=== PATIENT | male | born 1935 | race Caucasian/White ===

== ENCOUNTER → 2018-02-13 11:28 | Outpatient (CLI) | payer MEDICARE, OTHER, SELFPAY ==
[2018-02-13 12:56] LABS: Blood Urea Nitrogen 54 mg/dL (9-20); Calcium 9.4 mg/dL (8.4-10.2); Carbon Dioxide 25 mmol/L (22-32); Chloride 99 mmol/L (98-107); Estimated Glomerular Filt Rate 22.9 mL/min (>60); Glucose 91 mg/dL (80-110); HEMOLYSIS < 15 (0-50); Sodium 139 mmol/L (137-145)
[2018-02-13 12:58] LABS: Potassium 5.4 mmol/L (3.4-5.1)
== END ==
PROVIDERS: PCP Internal Medicine; Visit Provider Internal Medicine
DX: R60.0 Localized edema (principal)
CPT/HCPCS: 36415; 80048

== ENCOUNTER 2018-03-07 09:45 | Outpatient (RCR) | payer MEDICARE, OTHER, SELFPAY ==
--- NOTE | 2018-01-29 15:37 | PT.OIE ---
Current Diagnoses Parkinson's disease (01/28/18) Past Medical History (Last Updated 01/28/18 @ 15:34 by Alysia Villarreal, PT) Back pain (Acute) Concussion (Acute) HBP (high blood pressure) (Acute) Neck pain (Acute) Parkinsons (Acute) TIA (transient ischemic attack) (Acute) Past Surgical History History of tonsillectomy Status post appendectomy Status post cholecystectomy Provider Visit Care Team Role Provider Type Jessica Celestin MD Family Provider Physician Primary Care Provider Specialty: Internal Medicine Address: [address] [place] [address], [id number] Email: Eliud Shanks MD Attending Provider Physician Specialty: Neurology Address: [address] [place] [address], [id number] Email: [email or web address] Physical Therapy Initial Evaluation PT-OP-A Visit Information Start: 01/28/18 12:49 Freq: Status: Active Protocol: Document 01/28/18 12:53 LRN (Rec: 01/28/18 13:41 LRN [id number]) Out-Patient Physical Therapy Visit Information Visit Information Visit Note 09/26 Visit Start Time 12:50 Visit Number 1 Number of AEMT Visits 0 PT-OP-B Current Condition Start: 01/28/18 12:49 Freq: Status: Active Protocol: Document 01/28/18 12:53 LRN (Rec: 01/28/18 16:30 LRN [id number]) Current Condition History of Current Condition Onset Date 2012 Current Complaints Decreased in balance with stair ambulation and sit to stand. 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 He denies any recent loss of balance episodes. His most recent was 1 month ago when he was coming to stand and his foot caught on something. Prior Treatments and Tests Pt has had cardiac rehab in 2004 x 2, pulmonary rehab - 2013. He attends independent exercise in the pulmonary clinic every Sunday and Sunday for 40' of exercise. Treatment Goals Patient/Caregiver Goals Pt goal is to improve his balance so that he doesn't have to worry about loss of balance with stair ambulation and when coming to stand from a sitting position. Prior Functional Status Baseline Function- ADL's Independent Baseline Function- Mobility Independent Baseline Function- Gait Slow gait with short step lengths, without an assisted device. Current Functional Impairments (Reported) Functional Limitations- ADL's Difficulty with sit to stand, occasional loss of balance. Difficulty with donning socks, requests information on a sock aid. Functional Limitations- Mobility/Gait Unsteady with stair ambulation , requires use of railing for safety and several trips up/ down if needing to carry more than one item. Personal Factors Other Personal Factors That May Effect Pt lives in a 2 story house Therapy/Recovery that requires him to use railing for safety; therefore pt is dependent on railing with use of stairs. Pt diagnosis of Parkinson's and intermittent back and neck pain. Uncontrolled blood pressure, currently too low. PT-OP-C Subjective Start: 01/28/18 12:49 Freq: Status: Active Protocol: Document 01/28/18 12:53 LRN (Rec: 01/28/18 16:30 LRN [id number]) Patient Questionnaires ABC- Activity Specific Balance Confidence Scale ABC Score Questionable scoring on question # 1 & 8. PT-OP-D Balance Start: 01/28/18 12:49 Freq: Status: Active Protocol: Document 01/28/18 12:53 LRN (Rec: 01/28/18 16:30 LRN [id number]) OP-PT Balance Assessment Sitting Balance Static Sitting Balance Ability Normal Standing Balance Static Standing Balance Ability Normal Dynamic Standing Balance Ability Fair Device Used None Standing Balance Comments Poor SLS. Tinetti Balance Assessment Sitting Balance Sitting Balance Steady, safe Arising from Chair Ability to Arise Able, w/o using arms Standing Balance Immediate Standing Balance Steady w/o support Turning Step Pattern Turning 360 Degrees Continuous steps Stability Turning 360 Degrees Steady Sitting Down Sitting Down Safe, steady Gait and Step Right Foot Step Length Does not pass stance ft. Right Foot Step Height Completely clears floor Left Foot Step Length Does not pass stance foot Left Foot Step Height Completely clears floor Step Description Step Symmetry Step length appears equal Step Continuity Steps appear continuous Gait Description Path Description Straight Trunk Description No sway but posturing Walking Stance Heels apart Scoring and Interpretation Tinetti Composite Score (points) 16 Interpretation of Scores High risk for falls(< 19) Tinetti Impairment Rating from Composite 40 to <60% Impaired (Score 12- Score 16) Grajeda Fall Scale Copyright Permission Taras JM, Taras RM, Michael SJ. Development of a scale to identify the fall- prone patient. Can J Aging 1989;8;366-7. Ángel Grajeda (2009). Preventing patient falls. (2nd ed). [place]: Escobar. PT-OP-E Functional Tests Start: 01/28/18 12:49 Freq: Status: Active Protocol: Document 01/28/18 12:53 LRN (Rec: 01/28/18 16:30 LRN [id number]) Functional Tests Five Times Sit to Stand Test Score 25 sec's Comments Web chair PT-OP-G Mobility & Gait Start: 01/28/18 12:49 Freq: Status: Active Protocol: Document 01/28/18 12:53 LRN (Rec: 01/28/18 16:30 LRN [id number]) OP Mobility Evaluation Bed Mobility Supine to and from Sit Transfers long sit to supine. Supine to long sit to sitting at edge. Transfers Sit to Stand Occasionally requires 2 attempts. PT-OP-H Neuro Start: 01/28/18 12:49 Freq: Status: Active Protocol: Document 01/28/18 12:53 LRN (Rec: 01/28/18 16:30 LRN [id number]) Sensation Evaluation Location Details Right Foot Light Touch Impaired Sharp/Dull Impaired Deep Pressure Intact/Normal Left Foot Light Touch Impaired Sharp/Dull Impaired Deep Pressure Intact/Normal PT-OP-J Posture/Palpation/Skin Start: 01/28/18 12:49 Freq: Status: Active Protocol: Document 01/28/18 12:53 LRN (Rec: 01/28/18 16:30 LRN [id number]) Posture Evaluation Position Standing Evaluation View Anterior Head/C-Spine Posture Forward Head T-Spine Posture Increased Kyphosis L-Spine Posture Flattened Shoulder Posture (L) Rounded (R) Rounded (R) Elevated Pelvis Posture Posterior Tilted Ankle/Foot Posture (L) Forefoot Abducted PT-OP-M Strength Start: 01/28/18 12:49 Freq: Status: Active Protocol: Document 01/28/18 12:53 LRN (Rec: 01/28/18 16:30 LRN [id number]) Hip Strength Hip Manual Muscle Testing Right Flexion (L2) 3+ Fair+ Extension (S1) 3+ Fair+ Abduction 3+ Fair+ Left Flexion (L2) 3+ Fair+ Extension (S1) 3+ Fair+ Abduction 3+ Fair+ Knee Strength Knee Manual Muscle Testing Right Flexion (S2) 3+ Fair+ Extension (L3) 4 Good Left Flexion (S2) 3+ Fair+ Extension (L3) 4 Good Ankle/Foot Strength Ankle and Foot Manual Muscle Testing Right Dorsiflexion (L4) 4 Good Plantarflexion (S1) 4 Good Inversion 4 Good Eversion (S1) 3+ Fair+ Left Dorsiflexion (L4) 4 Good Plantarflexion (S1) 4 Good Inversion 4 Good PT-OP-T Assessment and Plan Start: 01/28/18 12:49 Freq: Status: Active Protocol: Document 01/28/18 12:53 LRN (Rec: 01/28/18 16:30 LRN [id number]) Physical Therapy Assessment Rehab Potential Rehabilitation Potential Good Evaluation Complexity Number of Personal Factors/Comorbidities 3 or More Number of Body Systems Impaired 4 or More Clinical Presentation at Evaluation Evolving Impairments Impairments Balance Gait Posture ROM Strength Transfers Other Impairments Lacks appropriate home program . Goals Three Impairment Decreased safety with gait ( steps), with decr trunk & hip mobility/strength Senior Living Goal (LTG) Pt will be able to ambulate stairs without LOB and use of one railing as he improves in trunk/ankle mobility and strength. LTG Duration 8 weeks. Two Impairment Decreased balance with poor posturing Community Coordinator Goal (LTG) Pt will demonstrate improved posturing with no LOB with immediate sit to stand. LTG Duration 8 weeks One Impairment Lacks appropriate Home Exercise Program (HEP) Senior Living Goal (LTG) Pt will be independent with a HEP/Self care program LTG Duration 8 weeks Assessment Summary Assessment Pt presents with signs and symptoms consistent with his diagnosis of Parkinson's. He demonstrates decreased balance due to poor posturing, decreased trunk and ankle mobility, decreased general LE strength with decreased SLS, poor transfer technique and is hindered due to decreased sensation in the plantar surface of his feet. Physical Therapy Plan Frequency and Duration Frequency of Treatment 2x/Week Duration of Treatment 8 weeks Plan of Care Start Date 01/28/18 Plan of Care End Date 03/25/18 Therapeutic Interventions Therapeutic Interventions Balance Training Coordination Training Gait Training Home Exercise Program Manual Therapy Neuromuscular Re-education Self-Care/Home Management Therapeutic Activities Therapeutic Exercises Next Visit Focus/Plan Next Visit Plan Recheck ABC Questionnaire, HEP of stretch program, LSVT type movement ex's, Check Functional Reach, FGA, and start deep breathing/LE roll in/out ex's. Provider Signature Date
--- NOTE | 2018-01-29 15:41 | PT.OPPOC ---
Current Diagnoses Parkinson's disease (01/28/18) Provider Visit Care Team Role Provider Type Jessica Celestin MD Family Provider Physician Primary Care Provider Specialty: Internal Medicine Address: [address] [place] [address], [address] Email: Eliud Shanks MD Attending Provider Physician Specialty: Neurology Address: [address] [place] [address], [id number] Email: [email or web address] Plan Of Care PT-OP-T Assessment and Plan Start: 01/28/18 12:49 Freq: Status: Active Protocol: Document 01/28/18 12:53 LRN (Rec: 01/28/18 16:30 LRN [id number]) Physical Therapy Assessment Rehab Potential Rehabilitation Potential Good Evaluation Complexity Number of Personal Factors/Comorbidities 3 or More Number of Body Systems Impaired 4 or More Clinical Presentation at Evaluation Evolving Impairments Impairments Balance Gait Posture ROM Strength Transfers Other Impairments Lacks appropriate home program . Goals Three Impairment Decreased safety with gait ( steps), with decr trunk & hip mobility/strength Boom Worker Goal (LTG) Pt will be able to ambulate stairs without LOB and use of one railing as he improves in trunk/ankle mobility and strength. LTG Duration 8 weeks. Two Impairment Decreased balance with poor posturing Boom Worker Goal (LTG) Pt will demonstrate improved posturing with no LOB with immediate sit to stand. LTG Duration 8 weeks One Impairment Lacks appropriate Home Exercise Program (HEP) Boom Worker Goal (LTG) Pt will be independent with a HEP/Self care program LTG Duration 8 weeks Assessment Summary Assessment Pt presents with signs and symptoms consistent with his diagnosis of Parkinson's. He demonstrates decreased balance due to poor posturing, decreased trunk and ankle mobility, decreased general LE strength with decreased SLS, poor transfer technique and is hindered due to decreased sensation in the plantar surface of his feet. Physical Therapy Plan Frequency and Duration Frequency of Treatment 2x/Week Duration of Treatment 8 weeks Plan of Care Start Date 01/28/18 Plan of Care End Date 03/25/18 Therapeutic Interventions Therapeutic Interventions Balance Training Coordination Training Gait Training Home Exercise Program Manual Therapy Neuromuscular Re-education Self-Care/Home Management Therapeutic Activities Therapeutic Exercises Next Visit Focus/Plan Next Visit Plan Recheck ABC Questionnaire, HEP of stretch program, LSVT type movement ex's, Check Functional Reach, FGA, and start deep breathing/LE roll in/out ex's. Plan of Care Dates Plan of Care Start Date 01/28/18 Plan of Care End Date 03/25/18 Please Sign and Return: I have reviewed this Plan of Care and certify that the skilled therapy services above are required to meet the patient???s needs. Physician Signature Date Printed Name and Credentials
--- NOTE | 2018-02-01 14:19 | PT.OTN ---
Current Diagnoses Parkinson's disease (02/01/18) Physical Therapy Treatment Note PT-OP-A Visit Information Start: 01/28/18 12:49 Freq: Status: Active Protocol: Document 02/01/18 12:53 LRN (Rec: 02/01/18 14:06 LRN [id number]) Out-Patient Physical Therapy Visit Information Visit Information Visit Type Treatment Note Visit Note 10/27 Visit Start Time 12:50 Visit Stop Time 13:33 Total Visit Minutes 43 Visit Number 2 Number of SALES REPRESENTATIVE CONSULTANT Visits 0 Evaluation Information Evaluation Date 01/28/18 PT-OP-B Current Condition Start: 01/28/18 12:49 Freq: Status: Active Protocol: Document 01/28/18 12:53 LRN (Rec: 01/28/18 16:30 LRN [id number]) Current Condition History of Current Condition Onset Date 2012 Current Complaints Decreased in balance with stair ambulation and sit to stand. 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 He dienies any recent loss of balance episodes. His most recent was 1 month ago when he was coming to stand and his foot caught on something. Prior Treatments and Tests Pt has had cardiac rehab in 2004 x 2, pulmonary rehab - 2012. He attends independent exercise in the pulmonary clinic every sunday and sunday for 40' of exercise. Treatment Goals Patient/Caregiver Goals Pt goal is to improve his balance so that he doesn't have to worry about loss of balance with stair ambulation and when coming to stand from a sitting positioni. Prior Functional Status Baseline Function- ADL's Independent Baseline Function- Mobility Independent Baseline Function- Gait Slow gait with short step lengths, without an assistive device. Current Functional Impairments (Reported) Functional Limitations- ADL's Diffculty with sit to stand, occasional loss of balance. Difficulty with donning socks, requests information on a sock aid. Functional Limitations- Mobility/Gait Unsteady with stair ambulation , requires use of railing for safety and several trips up/ down if needing to carry more than one item. Personal Factors Other Personal Factors That May Effect Pt lives in a 2 story house Therapy/Recovery that requires him to use railing for safety; therefore pt is dependent on railing with use of stairs. Pt diagnosis of Parkinson's and intermittent back and neck pain. Uncontrolled blood pressure, currently too low. PT-OP-C Subjective Start: 01/28/18 12:49 Freq: Status: Active Protocol: Document 02/01/18 12:53 LRN (Rec: 02/01/18 14:06 LRN [id number]) OP-PT Subjective Patient Comments Patient Comments About the same. Tired today because did a gym maintenance ex program this morning. Patient Questionnaires ABC- Activity Specific Balance Confidence Scale ABC Score 41.25 ABC Functional Impairment 40 to <60% Impaired (Score 41- 60) PT-OP-D Balance Start: 01/28/18 12:49 Freq: Status: Active Protocol: Document 01/28/18 12:53 LRN (Rec: 01/28/18 16:30 LRN [id number]) OP-PT Balance Assessment Sitting Balance Static Sitting Balance Ability Normal Standing Balance Static Standing Balance Ability Normal Dynamic Standing Balance Ability Fair Device Used None Standing Balance Comments Poor SLS. Tinetti Balance Assessment Sitting Balance Sitting Balance Steady, safe Arising from Chair Ability to Arise Able, w/o using arms Standing Balance Immediate Standing Balance Steady w/o support Turning Step Pattern Turning 360 Degrees Continuous steps Stability Turning 360 Degrees Steady Sitting Down Sitting Down Safe, steady Gait and Step Right Foot Step Length Does not pass stance ft. Right Foot Step Height Completely clears floor Left Foot Step Length Does not pass stance foot Left Foot Step Height Completely clears floor Step Description Step Symmetry Step length appears equal Step Continuity Steps appear continuous Gait Description Path Description Straight Trunk Description No sway but posturing Walking Stance Heels apart Scoring and Interpretation Tinetti Composite Score (points) 16 Interpretation of Scores High risk for falls(< 19) Tinetti Impairment Rating from Composite 40 to <60% Impaired (Score 12- Score 16) Grajeda Fall Scale Copyright Permission Taras ENCISO, Taras RM, Michael SJ. Development of a scale to identify the fall- prone patient. Can J Aging 1989;8;366-7. Ángel Grajeda (2009). Preventing patient falls. (2nd ed). [place]: Escobar. PT-OP-E Functional Tests Start: 01/28/18 12:49 Freq: Status: Active Protocol: Document 02/01/18 12:53 LRN (Rec: 02/01/18 14:06 LRN [id number]) Functional Tests Functional Gait Assessment Score 16 Functional Gait Assessment Impairment 40 to <60% Impaired (Score 13- Rating 18) Tinetti Balance and Gait Assessment Balance Score 14 Gait Score 11 Composite Score 25 Balance Score Impairment Rating 1 to <20% Impaired (Score 13- 15) Gait Score Impairment Rating 1 to <20% Impaired (Score 10- 11) Composite Score Impairment Rating 1 to <20% Impaired (Score 23- 27) Other 1 Name of Test Functional Reach Score 12 Comment Demonstrates low risk of falling. PT-OP-G Mobility & Gait Start: 01/28/18 12:49 Freq: Status: Active Protocol: Document 01/28/18 12:53 LRN (Rec: 01/28/18 16:30 LRN [id number]) OP Mobility Evaluation Bed Mobility Supine to and from Sit Transfers long sit to supine. Supine to long sit to sitting at edge. Transfers Sit to Stand Occasionally requires 2 attempts. PT-OP-H Neuro Start: 01/28/18 12:49 Freq: Status: Active Protocol: Document 01/28/18 12:53 LRN (Rec: 01/28/18 16:30 LRN [id number]) Sensation Evaluation Location Details Right Foot Light Touch Impaired Sharp/Dull Impaired Deep Pressure Intact/Normal Left Foot Light Touch Impaired Sharp/Dull Impaired Deep Pressure Intact/Normal PT-OP-J Posture/Palpation/Skin Start: 01/28/18 12:49 Freq: Status: Active Protocol: Document 01/28/18 12:53 LRN (Rec: 01/28/18 16:30 LRN [id number]) Posture Evaluation Position Standing Evaluation View Anterior Head/C-Spine Posture Forward Head T-Spine Posture Increased Kyphosis L-Spine Posture Flattened Shoulder Posture (L) Rounded (R) Rounded (R) Elevated Pelvis Posture Posterior Tilted Ankle/Foot Posture (L) Forefoot Abducted PT-OP-M Strength Start: 01/28/18 12:49 Freq: Status: Active Protocol: Document 01/28/18 12:53 LRN (Rec: 01/28/18 16:30 LRN [id number]) Hip Strength Hip Manual Muscle Testing Right Flexion (L2) 3+ Fair+ Extension (S1) 3+ Fair+ Abduction 3+ Fair+ Left Flexion (L2) 3+ Fair+ Extension (S1) 3+ Fair+ Abduction 3+ Fair+ Knee Strength Knee Manual Muscle Testing Right Flexion (S2) 3+ Fair+ Extension (L3) 4 Good Left Flexion (S2) 3+ Fair+ Extension (L3) 4 Good Ankle/Foot Strength Ankle and Foot Manual Muscle Testing Right Dorsiflexion (L4) 4 Good Plantarflexion (S1) 4 Good Inversion 4 Good Eversion (S1) 3+ Fair+ Left Dorsiflexion (L4) 4 Good Plantarflexion (S1) 4 Good Inversion 4 Good PT-OP-Q Treatments Start: 01/28/18 12:49 Freq: Status: Active Protocol: Document 02/01/18 12:53 LRN (Rec: 02/01/18 14:06 [facility] [id number]) Therapeutic Exercises Supine Exercises 1 Supine Exercise Name Deep Breathing Reps/Minutes 8 Comments Training needed for slower & deeper breathe, movement of abdomen vs chest Neuro Re-Education Treatment Balance Activities 6 Details Standing reach Reps/Duration 5 X 5 Details Turning Reps/Duration 10 X 4 Details Steps: up/down, over objects around objects Reps/Duration 2-3x each 3 Details Tandem forward/backward with hands over chestm, E Reps/Duration 2x 2 Details Walking with head turns, up/ down Surface 3x 1 Details Walking: forward/backward Reps/Duration 2x Self-Care/Home Management Treatment Activities Self-Care/Home Management Activities HEP issued and reviewed for deep breathing. PT-OP-T Assessment and Plan Start: 01/28/18 12:49 Freq: Status: Active Protocol: Document 02/01/18 12:53 LRN (Rec: 02/01/18 14:06 [facility] [id number]) Physical Therapy Assessment Impairments Impairments Balance Gait Posture ROM Strength Transfers Other Impairments Lacks appropriate home program . Goals Three Impairment Decreased safety with gait ( steps), with decr trunk & hip mobility/strength Heel Dipper Goal (LTG) Pt will be able to ambulate stairs without LOB and use of one railing as he improves in trunk/ankle mobility and strength. LTG Duration 8 weeks. Two Impairment Decreased balance with poor posturing [facility]ci Goal (LTG) Pt will demonstrate improved posturing with no LOB with immediate sit to stand. LTG Duration 8 weeks One Impairment Lacks appropriate Home Exercise Program (HEP) [facility] Goal (LTG) Pt will be independent with a HEP/Self care program LTG Duration 8 weeks Assessment Summary Assessment Pt has decreased balance with turn stops, head turns horizontally, tandem walking, backward walking EO, EC; and stairs with primarily descending of stairs. Pt had difficulty with performing proper deep breathing due to shallow breath, poor abdominal movement showing primarily chest breathing. Further review needed. Physical Therapy Plan Frequency and Duration Frequency of Treatment 2x/Week Duration of Treatment 8 weeks Plan of Care Start Date 01/28/18 Plan of Care End Date 03/25/18 Next Visit Focus/Plan Next Visit Plan HEP of stretch ex's as needed ([place]), LSVT type movement ex' s, Start LE roll in/outs if pt able to perform adequate deep breath exercise.
--- NOTE | 2018-02-05 08:50 | PT.OTN ---
Addendum entered and electronically signed by Alysia Villarreal, PT 02/05/18 11:57: Pt seen on 02/04/18, note completed on 02/05/18. Original Note: Current Diagnoses Parkinson's disease (02/04/18) Physical Therapy Treatment Note PT-OP-A Visit Information Start: 01/28/18 12:49 Freq: Status: Active Protocol: Document 02/04/18 12:46 LRN (Rec: 02/04/18 13:31 LRN [id number]) Out-Patient Physical Therapy Visit Information Visit Information Visit Type Treatment Note Visit Note 11/24 Visit Start Time 12:46 Visit Stop Time 13:28 Total Visit Minutes 44 Visit Number 3 Number of ASSISTANT PROFESSOR OF FORESTRY Visits 0 Evaluation Information Evaluation Date 01/28/18 PT-OP-B Current Condition Start: 01/28/18 12:49 Freq: Status: Active Protocol: Document 01/28/18 12:53 LRN (Rec: 01/28/18 16:30 LRN [id number]) Current Condition History of Current Condition Onset Date 2012 Current Complaints Decreased in balance with stair ambulation and sit to stand. 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 He dienies any recent loss of balance episodes. His most recent was 1 month ago when he was coming to stand and his foot caught on something. Prior Treatments and Tests Pt has had cardiac rehab in 2004 x 2, pulmonary rehab - 2012. He attends independent exercise in the pulmonary clinic every sunday and sunday for 40' of exercise. Treatment Goals Patient/Caregiver Goals Pt goal is to improve his balance so that he doesn't have to worry about loss of balance with stair ambulation and when coming to stand from a sitting positioni. Prior Functional Status Baseline Function- ADL's Independent Baseline Function- Mobility Independent Baseline Function- Gait Slow gait with short step lengths, without an assistive device. Current Functional Impairments (Reported) Functional Limitations- ADL's Diffculty with sit to stand, occasional loss of balance. Difficulty with donning socks, requests information on a sock aid. Functional Limitations- Mobility/Gait Unsteady with stair ambulation , requires use of railing for safety and several trips up/ down if needing to carry more than one item. Personal Factors Other Personal Factors That May Effect Pt lives in a 2 story house Therapy/Recovery that requires him to use railing for safety; therefore pt is dependent on railing with use of stairs. Pt diagnosis of Parkinson's and intermittent back and neck pain. Uncontrolled blood pressure, currently too low. PT-OP-C Subjective Start: 01/28/18 12:49 Freq: Status: Active Protocol: Document 02/04/18 12:46 LRN (Rec: 02/04/18 13:31 LRN [id number]) OP-PT Subjective Patient Comments Patient Comments Same, is more conscious of taking more time when getting up and taking more time with turning. PT-OP-D Balance Start: 01/28/18 12:49 Freq: Status: Active Protocol: Document 01/28/18 12:53 LRN (Rec: 01/28/18 16:30 LRN [id number]) OP-PT Balance Assessment Sitting Balance Static Sitting Balance Ability Normal Standing Balance Static Standing Balance Ability Normal Dynamic Standing Balance Ability Fair Device Used None Standing Balance Comments Poor SLS. Tinetti Balance Assessment Sitting Balance Sitting Balance Steady, safe Arising from Chair Ability to Arise Able, w/o using arms Standing Balance Immediate Standing Balance Steady w/o support Turning Step Pattern Turning 360 Degrees Continuous steps Stability Turning 360 Degrees Steady Sitting Down Sitting Down Safe, steady Gait and Step Right Foot Step Length Does not pass stance ft. Right Foot Step Height Completely clears floor Left Foot Step Length Does not pass stance foot Left Foot Step Height Completely clears floor Step Description Step Symmetry Step length appears equal Step Continuity Steps appear continuous Gait Description Path Description Straight Trunk Description No sway but posturing Walking Stance Heels apart Scoring and Interpretation Tinetti Composite Score (points) 16 Interpretation of Scores High risk for falls(< 19) Tinetti Impairment Rating from Composite 40 to <60% Impaired (Score 12- Score 16) Grajeda Fall Scale Copyright Permission Taras ENCISO, Taras RM, Michael SJ. Development of a scale to identify the fall- prone patient. Can J Aging 1989;8;366-7. Ángel Grajeda (2009). Preventing patient falls. (2nd ed). [place]: Escobar. PT-OP-E Functional Tests Start: 01/28/18 12:49 Freq: Status: Active Protocol: Document 02/01/18 12:53 LRN (Rec: 02/01/18 14:06 LRN [id number]) Functional Tests Functional Gait Assessment Score 16 Functional Gait Assessment Impairment 40 to <60% Impaired (Score 13- Rating 18) Tinetti Balance and Gait Assessment Balance Score 14 Gait Score 11 Composite Score 25 Balance Score Impairment Rating 1 to <20% Impaired (Score 13- 15) Gait Score Impairment Rating 1 to <20% Impaired (Score 10- 11) Composite Score Impairment Rating 1 to <20% Impaired (Score 23- 27) Other 1 Name of Test Functional Reach Score 12 Comment Demonstrates low risk of falling. PT-OP-G Mobility & Gait Start: 01/28/18 12:49 Freq: Status: Active Protocol: Document 01/28/18 12:53 LRN (Rec: 01/28/18 16:30 LRN [id number]) OP Mobility Evaluation Bed Mobility Supine to and from Sit Transfers long sit to supine. Supine to long sit to sitting at edge. Transfers Sit to Stand Occasionally requires 2 attempts. PT-OP-H Neuro Start: 01/28/18 12:49 Freq: Status: Active Protocol: Document 01/28/18 12:53 LRN (Rec: 01/28/18 16:30 LRN [id number]) Sensation Evaluation Location Details Right Foot Light Touch Impaired Sharp/Dull Impaired Deep Pressure Intact/Normal Left Foot Light Touch Impaired Sharp/Dull Impaired Deep Pressure Intact/Normal PT-OP-J Posture/Palpation/Skin Start: 01/28/18 12:49 Freq: Status: Active Protocol: Document 01/28/18 12:53 LRN (Rec: 01/28/18 16:30 LRN [id number]) Posture Evaluation Position Standing Evaluation View Anterior Head/C-Spine Posture Forward Head T-Spine Posture Increased Kyphosis L-Spine Posture Flattened Shoulder Posture (L) Rounded (R) Rounded (R) Elevated Pelvis Posture Posterior Tilted Ankle/Foot Posture (L) Forefoot Abducted PT-OP-M Strength Start: 01/28/18 12:49 Freq: Status: Active Protocol: Document 01/28/18 12:53 LRN (Rec: 01/28/18 16:30 LRN [id number]) Hip Strength Hip Manual Muscle Testing Right Flexion (L2) 3+ Fair+ Extension (S1) 3+ Fair+ Abduction 3+ Fair+ Left Flexion (L2) 3+ Fair+ Extension (S1) 3+ Fair+ Abduction 3+ Fair+ Knee Strength Knee Manual Muscle Testing Right Flexion (S2) 3+ Fair+ Extension (L3) 4 Good Left Flexion (S2) 3+ Fair+ Extension (L3) 4 Good Ankle/Foot Strength Ankle and Foot Manual Muscle Testing Right Dorsiflexion (L4) 4 Good Plantarflexion (S1) 4 Good Inversion 4 Good Eversion (S1) 3+ Fair+ Left Dorsiflexion (L4) 4 Good Plantarflexion (S1) 4 Good Inversion 4 Good PT-OP-Q Treatments Start: 01/28/18 12:49 Freq: Status: Active Protocol: Document 02/04/18 12:46 LRN (Rec: 02/04/18 13:31 LRN [id number]) Cardio Equipment Recumbent Elliptical (RECOMBINETICS) Duration (Minutes) 10 Resistance 2 Seat Position 10 Other arms/legs Therapeutic Exercises Supine Exercises 2 Supine Exercise Name LE Roll in/outs with and without deep breathing Side bilateral Reps/Minutes 10x each Comments Extra time needed for training 1 Supine Exercise Name Deep Breathing Reps/Minutes 8 Comments Training needed for slower & deeper breathe, movement of abdomen vs chest Sidelying Exercises 1 Sidelying Exercise Name Thoracic trunk rotation Side bilateral Reps/Minutes 1'x2 each Comments Pt C/S mobility limited due to fusion Other Exercises 1 Other Exercise Name Sit to Stand Reps/Minutes 10x Comments Pt slow moving, LOB x 1, using legs as support Self-Care/Home Management Treatment Activities Self-Care/Home Management Activities HEP issued and reviewed for LE Roll in/outs with deep breathing. PT-OP-T Assessment and Plan Start: 01/28/18 12:49 Freq: Status: Active Protocol: Document 02/04/18 12:46 LRN (Rec: 02/04/18 13:31 LRN [id number]) Physical Therapy Assessment Goals Three Impairment Decreased safety with gait ( steps), with decr trunk & hip mobility/strength Intermediate Goal (LTG) Pt will be able to ambulate stairs without LOB and use of one railing as he improves in trunk/ankle mobility and strength. LTG Duration 8 weeks. Two Impairment Decreased balance with poor posturing Intermediate Goal (LTG) Pt will demonstrate improved posturing with no LOB with immediate sit to stand. LTG Duration 8 weeks One Impairment Lacks appropriate Home Exercise Program (HEP) Steel Rigger Goal (LTG) Pt will be independent with a HEP/Self care program LTG Duration 8 weeks Assessment Summary Assessment Pt deep breathing is not quite as shallow. His LE roll in are poor mobility. Improved mechanics of sit to stand ex with learning to not lean against chair when standing. Physical Therapy Plan Frequency and Duration Frequency of Treatment 2x/Week Duration of Treatment 7 weeks Plan of Care Start Date 01/28/18 Plan of Care End Date 03/25/18 Next Visit Focus/Plan Next Visit Plan ............ Please Sign and Return: I have reviewed this Plan of Care and certify that the skilled therapy services above are required to meet the patient???s needs. Physician Signature Date Printed Name and Credentials Clinical Instructor Signature Printed Name and Credentials
--- NOTE | 2018-02-07 14:36 | PT.OTN ---
Current Diagnoses Parkinson's disease (02/07/18) Physical Therapy Treatment Note PT-OP-A Visit Information Start: 01/28/18 12:49 Freq: Status: Active Protocol: Document 02/07/18 13:35 LRN (Rec: 02/07/18 14:30 LRN [id number]) Out-Patient Physical Therapy Visit Information Visit Information Visit Type Treatment Note Visit Note 12/25 Visit Start Time 13:35 Visit Stop Time 14:26 Total Visit Minutes 51 Visit Number 4 Number of CLASSROOM AIDE Visits 0 Evaluation Information Evaluation Date 01/28/18 PT-OP-B Current Condition Start: 01/28/18 12:49 Freq: Status: Active Protocol: Document 01/28/18 12:53 LRN (Rec: 01/28/18 16:30 LRN [id number]) Current Condition History of Current Condition Onset Date 2012 Current Complaints Decreased in balance with stair ambulation and sit to stand. 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 He dienies any recent loss of balance episodes. His most recent was 1 month ago when he was coming to stand and his foot caught on something. Prior Treatments and Tests Pt has had cardiac rehab in 2004 x 2, pulmonary rehab - 2012. He attends independent exercise in the pulmonary clinic every sunday and sunday for 40' of exercise. Treatment Goals Patient/Caregiver Goals Pt goal is to improve his balance so that he doesn't have to worry about loss of balance with stair ambulation and when coming to stand from a sitting positioni. Prior Functional Status Baseline Function- ADL's Independent Baseline Function- Mobility Independent Baseline Function- Gait Slow gait with short step lengths, without an assistive device. Current Functional Impairments (Reported) Functional Limitations- ADL's Diffculty with sit to stand, occasional loss of balance. Difficulty with donning socks, requests information on a sock aid. Functional Limitations- Mobility/Gait Unsteady with stair ambulation , requires use of railing for safety and several trips up/ down if needing to carry more than one item. Personal Factors Other Personal Factors That May Effect Pt lives in a 2 story house Therapy/Recovery that requires him to use railing for safety; therefore pt is dependent on railing with use of stairs. Pt diagnosis of Parkinson's and intermittent back and neck pain. Uncontrolled blood pressure, currently too low. PT-OP-C Subjective Start: 01/28/18 12:49 Freq: Status: Active Protocol: Document 02/07/18 13:35 LRN (Rec: 02/07/18 14:30 LRN [id number]) OP-PT Subjective Patient Comments Patient Comments Tired today. Did cardio ex2 days ago and was very tired. PT-OP-D Balance Start: 01/28/18 12:49 Freq: Status: Active Protocol: Document 01/28/18 12:53 LRN (Rec: 01/28/18 16:30 LRN [id number]) OP-PT Balance Assessment Sitting Balance Static Sitting Balance Ability Normal Standing Balance Static Standing Balance Ability Normal Dynamic Standing Balance Ability Fair Device Used None Standing Balance Comments Poor SLS. Tinetti Balance Assessment Sitting Balance Sitting Balance Steady, safe Arising from Chair Ability to Arise Able, w/o using arms Standing Balance Immediate Standing Balance Steady w/o support Turning Step Pattern Turning 360 Degrees Continuous steps Stability Turning 360 Degrees Steady Sitting Down Sitting Down Safe, steady Gait and Step Right Foot Step Length Does not pass stance ft. Right Foot Step Height Completely clears floor Left Foot Step Length Does not pass stance foot Left Foot Step Height Completely clears floor Step Description Step Symmetry Step length appears equal Step Continuity Steps appear continuous Gait Description Path Description Straight Trunk Description No sway but posturing Walking Stance Heels apart Scoring and Interpretation Tinetti Composite Score (points) 16 Interpretation of Scores High risk for falls(< 19) Tinetti Impairment Rating from Composite 40 to <60% Impaired (Score 12- Score 16) Grajeda Fall Scale Copyright Permission Taras JM, Taras RM, Michael SJ. Development of a scale to identify the fall- prone patient. Can J Aging 1989;8;366-7. Ángel Grajeda (2009). Preventing patient falls. (2nd ed). [place]: Escobar. PT-OP-E Functional Tests Start: 01/28/18 12:49 Freq: Status: Active Protocol: Document 02/01/18 12:53 LRN (Rec: 02/01/18 14:06 LRN [id number]) Functional Tests Functional Gait Assessment Score 16 Functional Gait Assessment Impairment 40 to <60% Impaired (Score 13- Rating 18) Tinetti Balance and Gait Assessment Balance Score 14 Gait Score 11 Composite Score 25 Balance Score Impairment Rating 1 to <20% Impaired (Score 13- 15) Gait Score Impairment Rating 1 to <20% Impaired (Score 10- 11) Composite Score Impairment Rating 1 to <20% Impaired (Score 23- 27) Other 1 Name of Test Functional Reach Score 12 Comment Demonstrates low risk of falling. PT-OP-G Mobility & Gait Start: 01/28/18 12:49 Freq: Status: Active Protocol: Document 01/28/18 12:53 LRN (Rec: 01/28/18 16:30 LRN [id number]) OP Mobility Evaluation Bed Mobility Supine to and from Sit Transfers long sit to supine. Supine to long sit to sitting at edge. Transfers Sit to Stand Occasionally requires 2 attempts. PT-OP-H Neuro Start: 01/28/18 12:49 Freq: Status: Active Protocol: Document 01/28/18 12:53 LRN (Rec: 01/28/18 16:30 LRN [id number]) Sensation Evaluation Location Details Right Foot Light Touch Impaired Sharp/Dull Impaired Deep Pressure Intact/Normal Left Foot Light Touch Impaired Sharp/Dull Impaired Deep Pressure Intact/Normal PT-OP-J Posture/Palpation/Skin Start: 01/28/18 12:49 Freq: Status: Active Protocol: Document 01/28/18 12:53 LRN (Rec: 01/28/18 16:30 LRN [id number]) Posture Evaluation Position Standing Evaluation View Anterior Head/C-Spine Posture Forward Head T-Spine Posture Increased Kyphosis L-Spine Posture Flattened Shoulder Posture (L) Rounded (R) Rounded (R) Elevated Pelvis Posture Posterior Tilted Ankle/Foot Posture (L) Forefoot Abducted PT-OP-M Strength Start: 01/28/18 12:49 Freq: Status: Active Protocol: Document 01/28/18 12:53 LRN (Rec: 01/28/18 16:30 LRN [id number]) Hip Strength Hip Manual Muscle Testing Right Flexion (L2) 3+ Fair+ Extension (S1) 3+ Fair+ Abduction 3+ Fair+ Left Flexion (L2) 3+ Fair+ Extension (S1) 3+ Fair+ Abduction 3+ Fair+ Knee Strength Knee Manual Muscle Testing Right Flexion (S2) 3+ Fair+ Extension (L3) 4 Good Left Flexion (S2) 3+ Fair+ Extension (L3) 4 Good Ankle/Foot Strength Ankle and Foot Manual Muscle Testing Right Dorsiflexion (L4) 4 Good Plantarflexion (S1) 4 Good Inversion 4 Good Eversion (S1) 3+ Fair+ Left Dorsiflexion (L4) 4 Good Plantarflexion (S1) 4 Good Inversion 4 Good PT-OP-Q Treatments Start: 01/28/18 12:49 Freq: Status: Active Protocol: Document 02/07/18 13:35 LRN (Rec: 02/07/18 14:30 LRN [id number]) Cardio Equipment Recumbent Stepper (Sci-Fit) Duration (Minutes) 10 Resistance 1.0 Seat Position 13 Other For movement of thoracic rotation Therapeutic Exercises Supine Exercises 4 Supine Exercise Name LTR mid range with speed Side bilateral Reps/Minutes 40 x Comments Pt is stiff with knee drop to the right, rest periods during ex's 2 Supine Exercise Name LE Roll in/outs with and without deep breathing Side bilateral Reps/Minutes 15x each Comments Extra time needed for coordination with breathing 1 Supine Exercise Name Deep Breathing Reps/Minutes 15x Comments Training needed for slower & deeper breathe, movement of abdomen vs chest Sidelying Exercises 1 Sidelying Exercise Name Thoracic trunk rotation Side bilateral Reps/Minutes 1'x3 each with an increase in speed with each rep Comments Pt C/S mobility limited due to fusion Sitting Exercises 1 Sitting Exercise Name Reaching with rotation: opposite knee to ceiling Side bilateral Comments Poor rotation, needed physical assist. Other Exercises 1 Other Exercise Name Sit to Stand Reps/Minutes 10x, 5x 2nd set moving faster Comments Pt slow moving, LOB x 1, using legs as support PT-OP-T Assessment and Plan Start: 01/28/18 12:49 Freq: Status: Active Protocol: Document 02/07/18 13:35 LRN (Rec: 02/07/18 14:30 LRN [id number]) Physical Therapy Assessment Goals Three Impairment Decreased safety with gait ( steps), with decr trunk & hip mobility/strength Softlines Supervisor Goal (LTG) Pt will be able to ambulate stairs without LOB and use of one railing as he improves in trunk/ankle mobility and strength. LTG Duration 8 weeks. Two Impairment Decreased balance with poor posturing Softlines Supervisor Goal (LTG) Pt will demonstrate improved posturing with no LOB with immediate sit to stand. LTG Duration 8 weeks One Impairment Lacks appropriate Home Exercise Program (HEP) Softlines Supervisor Goal (LTG) Pt will be independent with a HEP/Self care program LTG Duration 8 weeks Assessment Summary Assessment Pt is mildly improved with ability to coordinate breathing with LE roll in/outs . Pt had one LOB episode with sit to stand quickly. Physical Therapy Plan Frequency and Duration Frequency of Treatment 2x/Week Duration of Treatment 7 weeks Plan of Care Start Date 01/28/18 Plan of Care End Date 03/25/18 Next Visit Focus/Plan Next Visit Plan Pec stretch program with HEP. Add standing balance ex's. Progress speed with movement for trunk rotation. Start ankle balance activities.
--- NOTE | 2018-02-14 14:36 | PT.OTN ---
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 He dienies any recent loss of balance episodes. His most recent was 1 month ago when he was coming to stand and his foot caught on something. Prior Treatments and Tests Pt has had cardiac rehab in 2004 x 2, pulmonary rehab - 2012. He attends independent exercise in the pulmonary clinic every sunday and sunday for 40' of exercise. Treatment Goals Patient/Caregiver Goals Pt goal is to improve his balance so that he doesn't have to worry about loss of balance with stair ambulation and when coming to stand from a sitting positioni. Prior Functional Status Baseline Function- ADL's Independent Baseline Function- Mobility Independent Baseline Function- Gait Slow gait with short step lengths, without an assistive device. Current Functional Impairments (Reported) Functional Limitations- ADL's Diffculty with sit to stand, occasional loss of balance. Difficulty with donning socks, requests information on a sock aid. Functional Limitations- Mobility/Gait Unsteady with stair ambulation , requires use of railing for safety and several trips up/ down if needing to carry more than one item. Personal Factors Other Personal Factors That May Effect Pt lives in a 2 story house Therapy/Recovery that requires him to use railing for safety; therefore pt is dependent on railing with use of stairs. Pt diagnosis of Parkinson's and intermittent back and neck pain. Uncontrolled blood pressure, currently too low. PT-OP-C Subjective Start: 01/28/18 12:49 Freq: Status: Active Protocol: Document 02/14/18 11:19 LRN (Rec: 02/14/18 12:25 LRN [id number]) OP-PT Subjective Patient Comments Patient Comments Tired, didn't sleep well. R ankle and toes were very painful all night. Goltry better when standing on it. PT-OP-D Balance Start: 01/28/18 12:49 Freq: Status: Active Protocol: Document 01/28/18 12:53 LRN (Rec: 01/28/18 16:30 LRN [id number]) OP-PT Balance Assessment Sitting Balance Static Sitting Balance Ability Normal Standing Balance Static Standing Balance Ability Normal Dynamic Standing Balance Ability Fair Device Used None Standing Balance Comments Poor SLS. Tinetti Balance Assessment Sitting Balance Sitting Balance Steady, safe Arising from Chair Ability to Arise Able, w/o using arms Standing Balance Immediate Standing Balance Steady w/o support Turning Step Pattern Turning 360 Degrees Continuous steps Stability Turning 360 Degrees Steady Sitting Down Sitting Down Safe, steady Gait and Step Right Foot Step Length Does not pass stance ft. Right Foot Step Height Completely clears floor Left Foot Step Length Does not pass stance foot Left Foot Step Height Completely clears floor Step Description Step Symmetry Step length appears equal Step Continuity Steps appear continuous Gait Description Path Description Straight Trunk Description No sway but posturing Walking Stance Heels apart Scoring and Interpretation Tinetti Composite Score (points) 16 Interpretation of Scores High risk for falls(< 19) Tinetti Impairment Rating from Composite 40 to <60% Impaired (Score 12- Score 16) Grajeda Fall Scale Copyright Permission Taras JM, Taras RM, Michael SJ. Development of a scale to identify the fall- prone patient. Can J Aging 1989;8;366-7. Ángel Grajeda (2009). Preventing patient falls. (2nd ed). [place]: Escobar. PT-OP-E Functional Tests Start: 01/28/18 12:49 Freq: Status: Active Protocol: Document 02/01/18 12:53 LRN (Rec: 02/01/18 14:06 LRN [id number]) Functional Tests Functional Gait Assessment Score 16 Functional Gait Assessment Impairment 40 to <60% Impaired (Score 13- Rating 18) Tinetti Balance and Gait Assessment Balance Score 14 Gait Score 11 Composite Score 25 Balance Score Impairment Rating 1 to <20% Impaired (Score 13- 15) Gait Score Impairment Rating 1 to <20% Impaired (Score 10- 11) Composite Score Impairment Rating 1 to <20% Impaired (Score 23- 27) Other 1 Name of Test Functional Reach Score 12 Comment Demonstrates low risk of falling. PT-OP-G Mobility & Gait Start: 01/28/18 12:49 Freq: Status: Active Protocol: Document 01/28/18 12:53 LRN (Rec: 01/28/18 16:30 LRN [id number]) OP Mobility Evaluation Bed Mobility Supine to and from Sit Transfers long sit to supine. Supine to long sit to sitting at edge. Transfers Sit to Stand Occasionally requires 2 attempts. PT-OP-H Neuro Start: 01/28/18 12:49 Freq: Status: Active Protocol: Document 01/28/18 12:53 LRN (Rec: 01/28/18 16:30 LRN [id number]) Sensation Evaluation Location Details Right Foot Light Touch Impaired Sharp/Dull Impaired Deep Pressure Intact/Normal Left Foot Light Touch Impaired Sharp/Dull Impaired Deep Pressure Intact/Normal PT-OP-J Posture/Palpation/Skin Start: 01/28/18 12:49 Freq: Status: Active Protocol: Document 01/28/18 12:53 LRN (Rec: 01/28/18 16:30 LRN [id number]) Posture Evaluation Position Standing Evaluation View Anterior Head/C-Spine Posture Forward Head T-Spine Posture Increased Kyphosis L-Spine Posture Flattened Shoulder Posture (L) Rounded (R) Rounded (R) Elevated Pelvis Posture Posterior Tilted Ankle/Foot Posture (L) Forefoot Abducted PT-OP-M Strength Start: 01/28/18 12:49 Freq: Status: Active Protocol: Document 01/28/18 12:53 LRN (Rec: 01/28/18 16:30 LRN [id number]) Hip Strength Hip Manual Muscle Testing Right Flexion (L2) 3+ Fair+ Extension (S1) 3+ Fair+ Abduction 3+ Fair+ Left Flexion (L2) 3+ Fair+ Extension (S1) 3+ Fair+ Abduction 3+ Fair+ Knee Strength Knee Manual Muscle Testing Right Flexion (S2) 3+ Fair+ Extension (L3) 4 Good Left Flexion (S2) 3+ Fair+ Extension (L3) 4 Good Ankle/Foot Strength Ankle and Foot Manual Muscle Testing Right Dorsiflexion (L4) 4 Good Plantarflexion (S1) 4 Good Inversion 4 Good Eversion (S1) 3+ Fair+ Left Dorsiflexion (L4) 4 Good Plantarflexion (S1) 4 Good Inversion 4 Good PT-OP-Q Treatments Start: 01/28/18 12:49 Freq: Status: Active Protocol: Document 02/14/18 11:19 LRN (Rec: 02/14/18 12:45 LRN [id number]) Therapeutic Exercises Supine Exercises 2 Supine Exercise Name LE Roll in/outs with and without deep breathing Side bilateral Reps/Minutes 15x each Comments Extra time needed for coordination with breathing 1 Supine Exercise Name Deep Breathing Reps/Minutes 15x Comments Training needed for slower & deeper breathe, movement of abdomen vs chest Sitting Exercises 3 Sitting Exercise Name Trunk rotation with arms overhead Side bilateral Equipment Used First w/o, then w/Lat Pull Down to assist w/maintaining arms overhead Comments 10x3 2 Sitting Exercise Name Alternate arm lifts Side bilateral Reps/Minutes 10 x 6 Comments Practice with assist, by self, then with speed. 1 Sitting Exercise Name Reaching with rotation: opposite knee to ceiling Side bilateral Reps/Minutes 10 x 6 Comments Practice with assist, by self, then with speed Standing Exercises 1 Standing Exercise Name Lunge and lunge with arm swings Side bilateral Equipment Used Parallel bars Reps/Minutes 10 x 2 Comments Practiced movement, then with speed Other Exercises 1 Other Exercise Name Sit to Stand Reps/Minutes 10x moving fast Comments LOB x 1 Gait Training Gait Activity 1 Description Walking with excessive 1)arm swings, 2)trunk rot, 3)visual focus forward Level of Assistance SBA Surface Level Distance/Duration 10' Treatment Focus Improving quality and fluidity of movement PT-OP-T Assessment and Plan Start: 01/28/18 12:49 Freq: Status: Active Protocol: Document 02/14/18 11:19 LRN (Rec: 02/14/18 12:25 LRN [id number]) Physical Therapy Assessment Impairments Impairments Balance Gait Posture ROM Strength Transfers Other Impairments Lacks appropriate home program . Goals Three Impairment Decreased safety with gait ( steps), with decr trunk & hip mobility/strength [employer] Goal (LTG) Pt will be able to ambulate stairs without LOB and use of one railing as he improves in trunk/ankle mobility and strength. LTG Duration 6 weeks. Two Impairment Decreased balance with poor posturing Usp Goal (LTG) Pt will demonstrate improved posturing with no LOB with immediate sit to stand. LTG Duration 6 weeks One Impairment Lacks appropriate Home Exercise Program (HEP) Usp Goal (LTG) Pt will be independent with a HEP/Self care program LTG Duration 6 weeks Assessment Summary Assessment R ankle is mildly swollen compared to the left with tenderness in the anterolateral ankle joint, possible sprain of lateral ankle that is resolving. There is improved speed of sit to stand with only 1 LOB episode. Fluidity of movement improved post therapy. Physical Therapy Plan Frequency and Duration Frequency of Treatment 2x/Week Duration of Treatment 7 weeks Plan of Care Start Date 01/28/18 Plan of Care End Date 03/25/18 Therapeutic Interventions Therapeutic Interventions Balance Training Coordination Training Gait Training Home Exercise Program Neuromuscular Re-education Self-Care/Home Management Therapeutic Activities Therapeutic Exercises Next Visit Focus/Plan Next Visit Plan Add active and passive Pec stretch
--- NOTE | 2018-02-18 15:47 | PT.OTN ---
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 He dienies any recent loss of balance episodes. His most recent was 1 month ago when he was coming to stand and his foot caught on something. Prior Treatments and Tests Pt has had cardiac rehab in 2004 x 2, pulmonary rehab - 2012. He attends independent exercise in the pulmonary clinic every sunday and sunday for 40' of exercise. Treatment Goals Patient/Caregiver Goals Pt goal is to improve his balance so that he doesn't have to worry about loss of balance with stair ambulation and when coming to stand from a sitting positioni. Prior Functional Status Baseline Function- ADL's Independent Baseline Function- Mobility Independent Baseline Function- Gait Slow gait with short step lengths, without an assistive device. Current Functional Impairments (Reported) Functional Limitations- ADL's Diffculty with sit to stand, occasional loss of balance. Difficulty with donning socks, requests information on a sock aid. Functional Limitations- Mobility/Gait Unsteady with stair ambulation , requires use of railing for safety and several trips up/ down if needing to carry more than one item. Personal Factors Other Personal Factors That May Effect Pt lives in a 2 story house Therapy/Recovery that requires him to use railing for safety; therefore pt is dependent on railing with use of stairs. Pt diagnosis of Parkinson's and intermittent back and neck pain. Uncontrolled blood pressure, currently too low. PT-OP-C Subjective Start: 01/28/18 12:49 Freq: Status: Active Protocol: Document 02/18/18 09:48 LRN (Rec: 02/18/18 10:31 LRN [id number]) OP-PT Subjective Patient Comments Patient Comments States his low back is sore, possibly from carrying a heavy can of dog food last night. States his anterior chest muscles are sore. PT-OP-D Balance Start: 01/28/18 12:49 Freq: Status: Active Protocol: Document 01/28/18 12:53 LRN (Rec: 01/28/18 16:30 LRN [id number]) OP-PT Balance Assessment Sitting Balance Static Sitting Balance Ability Normal Standing Balance Static Standing Balance Ability Normal Dynamic Standing Balance Ability Fair Device Used None Standing Balance Comments Poor SLS. Tinetti Balance Assessment Sitting Balance Sitting Balance Steady, safe Arising from Chair Ability to Arise Able, w/o using arms Standing Balance Immediate Standing Balance Steady w/o support Turning Step Pattern Turning 360 Degrees Continuous steps Stability Turning 360 Degrees Steady Sitting Down Sitting Down Safe, steady Gait and Step Right Foot Step Length Does not pass stance ft. Right Foot Step Height Completely clears floor Left Foot Step Length Does not pass stance foot Left Foot Step Height Completely clears floor Step Description Step Symmetry Step length appears equal Step Continuity Steps appear continuous Gait Description Path Description Straight Trunk Description No sway but posturing Walking Stance Heels apart Scoring and Interpretation Tinetti Composite Score (points) 16 Interpretation of Scores High risk for falls(< 19) Tinetti Impairment Rating from Composite 40 to <60% Impaired (Score 12- Score 16) Grajeda Fall Scale Copyright Permission Taras JM, Taras RM, Michael SJ. Development of a scale to identify the fall- prone patient. Can J Aging 1989;8;366-7. Ángel Grajeda (2009). Preventing patient falls. (2nd ed). [place]: Escobar. PT-OP-E Functional Tests Start: 01/28/18 12:49 Freq: Status: Active Protocol: Document 02/01/18 12:53 LRN (Rec: 02/01/18 14:06 LRN [id number]) Functional Tests Functional Gait Assessment Score 16 Functional Gait Assessment Impairment 40 to <60% Impaired (Score 13- Rating 18) Tinetti Balance and Gait Assessment Balance Score 14 Gait Score 11 Composite Score 25 Balance Score Impairment Rating 1 to <20% Impaired (Score 13- 15) Gait Score Impairment Rating 1 to <20% Impaired (Score 10- 11) Composite Score Impairment Rating 1 to <20% Impaired (Score 23- 27) Other 1 Name of Test Functional Reach Score 12 Comment Demonstrates low risk of falling. PT-OP-G Mobility & Gait Start: 01/28/18 12:49 Freq: Status: Active Protocol: Document 01/28/18 12:53 LRN (Rec: 01/28/18 16:30 LRN [id number]) OP Mobility Evaluation Bed Mobility Supine to and from Sit Transfers long sit to supine. Supine to long sit to sitting at edge. Transfers Sit to Stand Occasionally requires 2 attempts. PT-OP-H Neuro Start: 01/28/18 12:49 Freq: Status: Active Protocol: Document 01/28/18 12:53 LRN (Rec: 01/28/18 16:30 LRN [id number]) Sensation Evaluation Location Details Right Foot Light Touch Impaired Sharp/Dull Impaired Deep Pressure Intact/Normal Left Foot Light Touch Impaired Sharp/Dull Impaired Deep Pressure Intact/Normal PT-OP-J Posture/Palpation/Skin Start: 01/28/18 12:49 Freq: Status: Active Protocol: Document 01/28/18 12:53 LRN (Rec: 01/28/18 16:30 LRN [id number]) Posture Evaluation Position Standing Evaluation View Anterior Head/C-Spine Posture Forward Head T-Spine Posture Increased Kyphosis L-Spine Posture Flattened Shoulder Posture (L) Rounded (R) Rounded (R) Elevated Pelvis Posture Posterior Tilted Ankle/Foot Posture (L) Forefoot Abducted PT-OP-M Strength Start: 01/28/18 12:49 Freq: Status: Active Protocol: Document 01/28/18 12:53 LRN (Rec: 01/28/18 16:30 LRN [id number]) Hip Strength Hip Manual Muscle Testing Right Flexion (L2) 3+ Fair+ Extension (S1) 3+ Fair+ Abduction 3+ Fair+ Left Flexion (L2) 3+ Fair+ Extension (S1) 3+ Fair+ Abduction 3+ Fair+ Knee Strength Knee Manual Muscle Testing Right Flexion (S2) 3+ Fair+ Extension (L3) 4 Good Left Flexion (S2) 3+ Fair+ Extension (L3) 4 Good Ankle/Foot Strength Ankle and Foot Manual Muscle Testing Right Dorsiflexion (L4) 4 Good Plantarflexion (S1) 4 Good Inversion 4 Good Eversion (S1) 3+ Fair+ Left Dorsiflexion (L4) 4 Good Plantarflexion (S1) 4 Good Inversion 4 Good PT-OP-Q Treatments Start: 01/28/18 12:49 Freq: Status: Active Protocol: Document 02/18/18 09:48 LRN (Rec: 02/18/18 15:40 LRN [id number]) Cardio Equipment Recumbent Stepper (Sci-Fit) Duration (Minutes) 10 Resistance 1.0 Seat Position 13 Other For movement of thoracic rotation Therapeutic Exercises Supine Exercises 5 Supine Exercise Name Trunk rotation with Heel on opposite Toes Reps/Minutes 8-10 x each Comments Good stretch felt in lateral trunk 3 Supine Exercise Name Flatten back with thoracic extension & pec stretch Reps/Minutes 4' Comments Postural training 4 Supine Exercise Name LTR tolerable range with & w/o speed Side bilateral Reps/Minutes 30 x each Comments Pt is stiff with knee drop to the right, rest periods during ex's 2 Supine Exercise Name LE Roll in/outs with and without deep breathing Side bilateral Reps/Minutes 15x each Comments Extra time needed for coordination with breathing 1 Supine Exercise Name Deep Breathing Reps/Minutes 15x Comments Training needed for slower & deeper breathe, movement of abdomen vs chest Sidelying Exercises 1 Sidelying Exercise Name Thoracic trunk rotation Side bilateral Reps/Minutes 1'x3 each with an increase in speed with each rep Comments Pt C/S mobility limited due to fusion Sitting Exercises 3 Sitting Exercise Name Trunk rotation with arms overhead Side bilateral Equipment Used First w/o, then w/Lat Pull Down to assist w/maintaining arms overhead Comments 10x3 Self-Care/Home Management Treatment Education Patient Education Home Exercise Program Activities Self-Care/Home Management Activities HEP issued and reviewed ( Stretch lumbar rotation with knees, then arms, then with hips; sit trunk rot). PT-OP-T Assessment and Plan Start: 01/28/18 12:49 Freq: Status: Active Protocol: Document 02/18/18 09:48 LRN (Rec: 02/18/18 10:31 LRN [id number]) Physical Therapy Assessment Goals Three Impairment Decreased safety with gait ( steps), with decr trunk & hip mobility/strength [employer] Order Scheduler Goal (LTG) Pt will be able to ambulate stairs without LOB and use of one railing as he improves in trunk/ankle mobility and strength. LTG Duration 6 weeks. Two Impairment Decreased balance with poor posturing [employer] Scheduler Goal (LTG) Pt will demonstrate improved posturing with no LOB with immediate sit to stand. LTG Duration 6 weeks One Impairment Lacks appropriate Home Exercise Program (HEP) Longterm Goal (LTG) Pt will be independent with a HEP/Self care program LTG Duration 6 weeks Assessment Summary Assessment Trunk mobility is quite stiff. Pt has flexion LBP from carrying heavy object. Pt consistent with HEP and ex at cardio-gym. Physical Therapy Plan Frequency and Duration Frequency of Treatment 2x/Week Duration of Treatment 7 weeks Plan of Care Start Date 01/28/18 Plan of Care End Date 03/25/18 Next Visit Focus/Plan Next Visit Plan Pt posture is worse with onset of LBP. Review posture training with pec stretch.
--- NOTE | 2018-02-21 10:55 | PT.OTN ---
Current Diagnoses Parkinson's disease (02/21/18) Physical Therapy Treatment Note PT-OP-A Visit Information Start: 01/28/18 12:49 Freq: Status: Active Protocol: Document 02/21/18 09:49 LRN (Rec: 02/21/18 10:00 LRN [id number]) Out-Patient Physical Therapy Visit Information Visit Information Visit Type Treatment Note Visit Note 03/26 Visit Start Time 09:49 Visit Stop Time 10:30 Total Visit Minutes 41 Visit Number 7 Number of EQUIPMENT STERILIZER Visits 0 Evaluation Information Evaluation Date 01/28/18 PT-OP-B Current Condition Start: 01/28/18 12:49 Freq: Status: Active Protocol: Document 01/28/18 12:53 LRN (Rec: 01/28/18 16:30 LRN [id number]) Current Condition History of Current Condition Onset Date 2012 Current Complaints Decreased in balance with stair ambulation and sit to stand. 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 He denies any recent loss of balance episodes. His most recent was 1 month ago when he was coming to stand and his foot caught on something. Prior Treatments and Tests Pt has had cardiac rehab in 2004 x 2, pulmonary rehab - 2012. He attends independent exercise in the pulmonary clinic every sunday and sunday for 40' of exercise. Treatment Goals Patient/Caregiver Goals Pt goal is to improve his balance so that he doesn't have to worry about loss of balance with stair ambulation and when coming to stand from a sitting positional. Prior Functional Status Baseline Function- ADL's Independent Baseline Function- Mobility Independent Baseline Function- Gait Slow gait with short step lengths, without an assistive device. Current Functional Impairments (Reported) Functional Limitations- ADL's Difficulty with sit to stand, occasional loss of balance. Difficulty with donning socks, requests information on a sock aid. Functional Limitations- Mobility/Gait Unsteady with stair ambulation , requires use of railing for safety and several trips up/ down if needing to carry more than one item. Personal Factors Other Personal Factors That May Effect Pt lives in a 2 story house Therapy/Recovery that requires him to use railing for safety; therefore pt is dependent on railing with use of stairs. Pt diagnosis of Parkinson's and intermittent back and neck pain. Uncontrolled blood pressure, currently too low. PT-OP-C Subjective Start: 01/28/18 12:49 Freq: Status: Active Protocol: Document 02/21/18 09:49 LRN (Rec: 02/21/18 10:00 LRN [id number]) OP-PT Subjective Patient Comments Patient Comments C/O increased back pain popping a lot of Alleve lately . No increase pain with Sit to stand ex or arms overhead with upper thoracic ext ex. PT-OP-D Balance Start: 01/28/18 12:49 Freq: Status: Active Protocol: Document 01/28/18 12:53 LRN (Rec: 01/28/18 16:30 LRN [id number]) OP-PT Balance Assessment Sitting Balance Static Sitting Balance Ability Normal Standing Balance Static Standing Balance Ability Normal Dynamic Standing Balance Ability Fair Device Used None Standing Balance Comments Poor SLS. Tinetti Balance Assessment Sitting Balance Sitting Balance Steady, safe Arising from Chair Ability to Arise Able, w/o using arms Standing Balance Immediate Standing Balance Steady w/o support Turning Step Pattern Turning 360 Degrees Continuous steps Stability Turning 360 Degrees Steady Sitting Down Sitting Down Safe, steady Gait and Step Right Foot Step Length Does not pass stance ft. Right Foot Step Height Completely clears floor Left Foot Step Length Does not pass stance foot Left Foot Step Height Completely clears floor Step Description Step Symmetry Step length appears equal Step Continuity Steps appear continuous Gait Description Path Description Straight Trunk Description No sway but posturing Walking Stance Heels apart Scoring and Interpretation Tinetti Composite Score (points) 16 Interpretation of Scores High risk for falls(< 19) Tinetti Impairment Rating from Composite 40 to <60% Impaired (Score 12- Score 16) Grajeda Fall Scale Copyright Permission Taras JM, Taras RM, Michael SJ. Development of a scale to identify the fall- prone patient. Can J Aging 1989;8;366-7. Ángel Grajeda (2009). Preventing patient falls. (2nd ed). [place]: Escobar. PT-OP-E Functional Tests Start: 01/28/18 12:49 Freq: Status: Active Protocol: Document 02/21/18 09:49 LRN (Rec: 02/21/18 10:12 LRN [id number]) Functional Tests Five Times Sit to Stand Test Score 11.60 sec's Comments Norm for 80-89 yr olds is 14.8 sec's PT-OP-G Mobility & Gait Start: 01/28/18 12:49 Freq: Status: Active Protocol: Document 01/28/18 12:53 LRN (Rec: 01/28/18 16:30 LRN [id number]) OP Mobility Evaluation Bed Mobility Supine to and from Sit Transfers long sit to supine. Supine to long sit to sitting at edge. Transfers Sit to Stand Occasionally requires 2 attempts. PT-OP-H Neuro Start: 01/28/18 12:49 Freq: Status: Active Protocol: Document 01/28/18 12:53 LRN (Rec: 01/28/18 16:30 LRN [id number]) Sensation Evaluation Location Details Right Foot Light Touch Impaired Sharp/Dull Impaired Deep Pressure Intact/Normal Left Foot Light Touch Impaired Sharp/Dull Impaired Deep Pressure Intact/Normal PT-OP-J Posture/Palpation/Skin Start: 01/28/18 12:49 Freq: Status: Active Protocol: Document 01/28/18 12:53 LRN (Rec: 01/28/18 16:30 LRN [id number]) Posture Evaluation Position Standing Evaluation View Anterior Head/C-Spine Posture Forward Head T-Spine Posture Increased Kyphosis L-Spine Posture Flattened Shoulder Posture (L) Rounded (R) Rounded (R) Elevated Pelvis Posture Posterior Tilted Ankle/Foot Posture (L) Forefoot Abducted PT-OP-M Strength Start: 01/28/18 12:49 Freq: Status: Active Protocol: Document 01/28/18 12:53 LRN (Rec: 01/28/18 16:30 LRN [id number]) Hip Strength Hip Manual Muscle Testing Right Flexion (L2) 3+ Fair+ Extension (S1) 3+ Fair+ Abduction 3+ Fair+ Left Flexion (L2) 3+ Fair+ Extension (S1) 3+ Fair+ Abduction 3+ Fair+ Knee Strength Knee Manual Muscle Testing Right Flexion (S2) 3+ Fair+ Extension (L3) 4 Good Left Flexion (S2) 3+ Fair+ Extension (L3) 4 Good Ankle/Foot Strength Ankle and Foot Manual Muscle Testing Right Dorsiflexion (L4) 4 Good Plantarflexion (S1) 4 Good Inversion 4 Good Eversion (S1) 3+ Fair+ Left Dorsiflexion (L4) 4 Good Plantarflexion (S1) 4 Good Inversion 4 Good PT-OP-Q Treatments Start: 01/28/18 12:49 Freq: Status: Active Protocol: Document 02/21/18 09:49 LRN (Rec: 02/21/18 10:00 [facility] [id number]) Cardio Equipment Recumbent Elliptical (Biodex) Duration (Minutes) 10 Resistance 1 Seat Position 10 Therapeutic Exercises Supine Exercises 5 Supine Exercise Name HELD: Trunk rotation with Heel on opposite Toes 3 Supine Exercise Name Flatten back with thoracic extension & pec stretch (arms overhead) Reps/Minutes 4' Comments Postural training 4 Supine Exercise Name Alternate Arm lifts with alternate knee lifts (like gait) Reps/Minutes 10x 4 Comments With assist x 2, without assist, with speed x 2 2 Supine Exercise Name LE Roll in/outs with and without deep breathing Side bilateral Reps/Minutes 15x each Comments Extra time needed for coordination with breathing 1 Supine Exercise Name Deep Breathing Reps/Minutes 15x Comments Training needed for slower & deeper breathe, movement of abdomen vs chest Sitting Exercises 2 Sitting Exercise Name Alternate arms foward/leg ext (copying gait) Side bilateral Reps/Minutes 10 x 5 Comments With assistx2>indep x 2>speed up Other Exercises 1 Other Exercise Name Sit to Stand Reps/Minutes 10x2 moving fast Comments No LOB PT-OP-T Assessment and Plan Start: 01/28/18 12:49 Freq: Status: Active Protocol: Document 02/21/18 09:49 LRN (Rec: 02/21/18 10:00 N [id number]) Physical Therapy Assessment Goals Three Impairment Decreased safety with gait ( steps), with decr trunk & hip mobility/strength Rehabilitation Supervisor Goal (LTG) Pt will be able to ambulate stairs without LOB and use of one railing as he improves in trunk/ankle mobility and strength. LTG Duration 5 weeks. Two Impairment Decreased balance with poor posturing Rehabilitation Supervisor Goal (LTG) Pt will demonstrate improved posturing with no LOB with immediate sit to stand. (No LOB today with sit to stand). LTG Duration 5 weeks One Impairment Lacks appropriate Home Exercise Program (HEP) Rehabilitation Supervisor Goal (LTG) Pt will be independent with a HEP/Self care program LTG Duration 5 weeks Progress Towards Goals Progress Comments Goal #2: Pt able to perform sit to stand without LOB and appropropriate speed. Assessment Summary Assessment Goal #2 Partially Met today, no LOB with Sit to Stand. He needs to continue to work on improving posture. 5TSTS Test is normal for his age. Pt was limited in therapy ex's due to back pain with rotation ; therefore therapy focused on improving posture and mobility within the Coronal plane. Physical Therapy Plan Frequency and Duration Frequency of Treatment 2x/Week Duration of Treatment 7 weeks Plan of Care Start Date 01/28/18 Plan of Care End Date 03/25/18 Next Visit Focus/Plan Next Visit Plan Avoid excessive rotation with ex. Progress to Balance ex's and large movements with gait and standing balance. Review Deep breathing and LE roll in/ outs. Please Sign and Return: I have reviewed this Plan of Care and certify that the skilled therapy services above are required to meet the patient?s needs. Physician Signature Date Printed Name and Credentials Clinical Instructor Signature Printed Name and Credentials
--- NOTE | 2018-02-25 10:31 | PT.OTN ---
Current Diagnoses Parkinson's disease (02/25/18) Physical Therapy Treatment Note PT-OP-A Visit Information Start: 01/28/18 12:49 Freq: Status: Active Protocol: Document 02/25/18 10:24 EA (Rec: 02/25/18 10:31 EA [id number]) Out-Patient Physical Therapy Visit Information Visit Information Visit Type Treatment Note Visit Note 03/26 Visit Start Time 09:49 Visit Stop Time 10:30 Total Visit Minutes 38 Visit Number 8 Number of TOOL PROGRAMMER Visits 0 PT-OP-B Current Condition Start: 01/28/18 12:49 Freq: Status: Active Protocol: Document 01/28/18 12:53 LRN (Rec: 01/28/18 16:30 LRN [id number]) Current Condition History of Current Condition Onset Date 2012 Current Complaints Decreased in balance with stair ambulation and sit to stand. 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 He dienies any recent loss of balance episodes. His most recent was 1 month ago when he was coming to stand and his foot caught on something. Prior Treatments and Tests Pt has had cardiac rehab in 2004 x 2, pulmonary rehab - 2012. He attends independent exercise in the pulmonary clinic every sunday and sunday for 40' of exercise. Treatment Goals Patient/Caregiver Goals Pt goal is to improve his balance so that he doesn't have to worry about loss of balance with stair ambulation and when coming to stand from a sitting positioni. Prior Functional Status Baseline Function- ADL's Independent Baseline Function- Mobility Independent Baseline Function- Gait Slow gait with short step lengths, without an assistive device. Current Functional Impairments (Reported) Functional Limitations- ADL's Diffculty with sit to stand, occasional loss of balance. Difficulty with donning socks, requests information on a sock aid. Functional Limitations- Mobility/Gait Unsteady with stair ambulation , requires use of railing for safety and several trips up/ down if needing to carry more than one item. Personal Factors Other Personal Factors That May Effect Pt lives in a 2 story house Therapy/Recovery that requires him to use railing for safety; therefore pt is dependent on railing with use of stairs. Pt diagnosis of Parkinson's and intermittent back and neck pain. Uncontrolled blood pressure, currently too low. PT-OP-C Subjective Start: 01/28/18 12:49 Freq: Status: Active Protocol: Document 02/25/18 10:24 EA (Rec: 02/25/18 10:31 EA [id number]) OP-PT Subjective Patient Comments Patient Comments Young reports back still quite sore and wnast the exercises to be a little easier. PT-OP-D Balance Start: 01/28/18 12:49 Freq: Status: Active Protocol: Document 01/28/18 12:53 LRN (Rec: 01/28/18 16:30 LRN [id number]) OP-PT Balance Assessment Sitting Balance Static Sitting Balance Ability Normal Standing Balance Static Standing Balance Ability Normal Dynamic Standing Balance Ability Fair Device Used None Standing Balance Comments Poor SLS. Tinetti Balance Assessment Sitting Balance Sitting Balance Steady, safe Arising from Chair Ability to Arise Able, w/o using arms Standing Balance Immediate Standing Balance Steady w/o support Turning Step Pattern Turning 360 Degrees Continuous steps Stability Turning 360 Degrees Steady Sitting Down Sitting Down Safe, steady Gait and Step Right Foot Step Length Does not pass stance ft. Right Foot Step Height Completely clears floor Left Foot Step Length Does not pass stance foot Left Foot Step Height Completely clears floor Step Description Step Symmetry Step length appears equal Step Continuity Steps appear continuous Gait Description Path Description Straight Trunk Description No sway but posturing Walking Stance Heels apart Scoring and Interpretation Tinetti Composite Score (points) 16 Interpretation of Scores High risk for falls(< 19) Tinetti Impairment Rating from Composite 40 to <60% Impaired (Score 12- Score 16) Grajeda Fall Scale Copyright Permission Taras JM, Taras RM, Michael SJ. Development of a scale to identify the fall- prone patient. Can J Aging 1989;8;366-7. Ángel Grajeda (2009). Preventing patient falls. (2nd ed). [place]: Escobar. PT-OP-E Functional Tests Start: 01/28/18 12:49 Freq: Status: Active Protocol: Document 02/21/18 09:49 LRN (Rec: 02/21/18 10:12 LRN [id number]) Functional Tests Five Times Sit to Stand Test Score 11.60 sec's Comments Norm for 80-89 yr olds is 14.8 sec's PT-OP-G Mobility & Gait Start: 01/28/18 12:49 Freq: Status: Active Protocol: Document 01/28/18 12:53 LRN (Rec: 01/28/18 16:30 LRN [id number]) OP Mobility Evaluation Bed Mobility Supine to and from Sit Transfers long sit to supine. Supine to long sit to sitting at edge. Transfers Sit to Stand Occasionally requires 2 attempts. PT-OP-H Neuro Start: 01/28/18 12:49 Freq: Status: Active Protocol: Document 01/28/18 12:53 LRN (Rec: 01/28/18 16:30 LRN [id number]) Sensation Evaluation Location Details Right Foot Light Touch Impaired Sharp/Dull Impaired Deep Pressure Intact/Normal Left Foot Light Touch Impaired Sharp/Dull Impaired Deep Pressure Intact/Normal PT-OP-J Posture/Palpation/Skin Start: 01/28/18 12:49 Freq: Status: Active Protocol: Document 01/28/18 12:53 LRN (Rec: 01/28/18 16:30 LRN [id number]) Posture Evaluation Position Standing Evaluation View Anterior Head/C-Spine Posture Forward Head T-Spine Posture Increased Kyphosis L-Spine Posture Flattened Shoulder Posture (L) Rounded (R) Rounded (R) Elevated Pelvis Posture Posterior Tilted Ankle/Foot Posture (L) Forefoot Abducted PT-OP-M Strength Start: 01/28/18 12:49 Freq: Status: Active Protocol: Document 01/28/18 12:53 LRN (Rec: 01/28/18 16:30 LRN [id number]) Hip Strength Hip Manual Muscle Testing Right Flexion (L2) 3+ Fair+ Extension (S1) 3+ Fair+ Abduction 3+ Fair+ Left Flexion (L2) 3+ Fair+ Extension (S1) 3+ Fair+ Abduction 3+ Fair+ Knee Strength Knee Manual Muscle Testing Right Flexion (S2) 3+ Fair+ Extension (L3) 4 Good Left Flexion (S2) 3+ Fair+ Extension (L3) 4 Good Ankle/Foot Strength Ankle and Foot Manual Muscle Testing Right Dorsiflexion (L4) 4 Good Plantarflexion (S1) 4 Good Inversion 4 Good Eversion (S1) 3+ Fair+ Left Dorsiflexion (L4) 4 Good Plantarflexion (S1) 4 Good Inversion 4 Good PT-OP-Q Treatments Start: 01/28/18 12:49 Freq: Status: Active Protocol: Document 02/25/18 10:24 EA (Rec: 02/25/18 10:31 EA [id number]) Cardio Equipment Recumbent Stepper (Sci-Fit) Duration (Minutes) 10 Resistance 1.0 Seat Position 13 Other For movement of thoracic rotation Therapeutic Exercises Standing Exercises 1 Standing Exercise Name Lunge and lunge with arm swings Side bilateral Equipment Used Parallel bars Reps/Minutes 10 x 2 Comments Practiced movement, then with speed Other Exercises 1 Other Exercise Name Sit to Stand Reps/Minutes 10x moving fast Comments LOB x 1 Neuro Re-Education Treatment Balance Activities 4 Details Obstacle walks Equipment foot jeyson and 2# AW Reps/Duration x 5 lines 3 Details Green sport cord: FW/BWD/SWD stepping Reps/Duration x 8 mins 2 Details Blue foam NBOS/stagerred stance with arm challenge and vestibular challenge Reps/Duration 5 min 1 Details wobble board ant/post tilt with arm challenge Reps/Duration x 5 mins PT-OP-T Assessment and Plan Start: 01/28/18 12:49 Freq: Status: Active Protocol: Document 02/25/18 10:24 EA (Rec: 02/25/18 10:31 EA [id number]) Physical Therapy Assessment Assessment Summary Assessment Tolerated treatment well with no low back pain complaint. Physical Therapy Plan Next Visit Focus/Plan Next Visit Plan Cont. with current plan. Please Sign and Return: I have reviewed this Plan of Care and certify that the skilled therapy services above are required to meet the patient?s needs. Physician Signature Date Printed Name and Credentials Clinical Instructor Signature Printed Name and Credentials
--- NOTE | 2018-02-28 12:15 | PT.OTN ---
Current Diagnoses Parkinson's disease (02/28/18) Physical Therapy Treatment Note PT-OP-A Visit Information Start: 01/28/18 12:49 Freq: Status: Active Protocol: Document 02/28/18 10:28 EA (Rec: 02/28/18 10:32 EA [id number]) Out-Patient Physical Therapy Visit Information Visit Information Visit Type Treatment Note Visit Note 05/27 Visit Start Time 09:49 Visit Stop Time 10:30 Total Visit Minutes 38 Visit Number 9 Number of SAW[employer] C[employer] SLABS Visits 0 PT-OP-B Current Condition Start: 01/28/18 12:49 Freq: Status: Active Protocol: Document 01/28/18 12:53 LRN (Rec: 01/28/18 16:30 LRN [id number]) Current Condition History of Current Condition Onset Date 2012 Current Complaints Decreased in balance with stair ambulation and sit to stand. 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 He dienies any recent loss of balance episodes. His most recent was 1 month ago when he was coming to stand and his foot caught on something. Prior Treatments and Tests Pt has had cardiac rehab in 2004 x 2, pulmonary rehab - 2012. He attends independent exercise in the pulmonary clinic every sunday and sunday for 40' of exercise. Treatment Goals Patient/Caregiver Goals Pt goal is to improve his balance so that he doesn't have to worry about loss of balance with stair ambulation and when coming to stand from a sitting positioni. Prior Functional Status Baseline Function- ADL's Independent Baseline Function- Mobility Independent Baseline Function- Gait Slow gait with short step lengths, without an assistive device. Current Functional Impairments (Reported) Functional Limitations- ADL's Diffculty with sit to stand, occasional loss of balance. Difficulty with donning socks, requests information on a sock aid. Functional Limitations- Mobility/Gait Unsteady with stair ambulation , requires use of railing for safety and several trips up/ down if needing to carry more than one item. Personal Factors Other Personal Factors That May Effect Pt lives in a 2 story house Therapy/Recovery that requires him to use railing for safety; therefore pt is dependent on railing with use of stairs. Pt diagnosis of Parkinson's and intermittent back and neck pain. Uncontrolled blood pressure, currently too low. PT-OP-C Subjective Start: 01/28/18 12:49 Freq: Status: Active Protocol: Document 02/28/18 10:28 EA (Rec: 02/28/18 10:32 EA [id number]) OP-PT Subjective Patient Comments Patient Comments Patient reports he likes the exercises last session; states he wants to focus with balance; states low back pain tolerable. PT-OP-D Balance Start: 01/28/18 12:49 Freq: Status: Active Protocol: Document 01/28/18 12:53 LRN (Rec: 01/28/18 16:30 LRN [id number]) OP-PT Balance Assessment Sitting Balance Static Sitting Balance Ability Normal Standing Balance Static Standing Balance Ability Normal Dynamic Standing Balance Ability Fair Device Used None Standing Balance Comments Poor SLS. Tinetti Balance Assessment Sitting Balance Sitting Balance Steady, safe Arising from Chair Ability to Arise Able, w/o using arms Standing Balance Immediate Standing Balance Steady w/o support Turning Step Pattern Turning 360 Degrees Continuous steps Stability Turning 360 Degrees Steady Sitting Down Sitting Down Safe, steady Gait and Step Right Foot Step Length Does not pass stance ft. Right Foot Step Height Completely clears floor Left Foot Step Length Does not pass stance foot Left Foot Step Height Completely clears floor Step Description Step Symmetry Step length appears equal Step Continuity Steps appear continuous Gait Description Path Description Straight Trunk Description No sway but posturing Walking Stance Heels apart Scoring and Interpretation Tinetti Composite Score (points) 16 Interpretation of Scores High risk for falls(< 19) Tinetti Impairment Rating from Composite 40 to <60% Impaired (Score 12- Score 16) Grajeda Fall Scale Copyright Permission Taras JM, Taras RM, Michael SJ. Development of a scale to identify the fall- prone patient. Can J Aging 1989;8;366-7. Ángel Grajeda (2009). Preventing patient falls. (2nd ed). [place]: [employer]. PT-OP-E Functional Tests Start: 01/28/18 12:49 Freq: Status: Active Protocol: Document 02/21/18 09:49 LRN (Rec: 02/21/18 10:12 LRN [id number]) Functional Tests Five Times Sit to Stand Test Score 11.60 sec's Comments Norm for 80-89 yr olds is 14.8 sec's PT-OP-G Mobility & Gait Start: 01/28/18 12:49 Freq: Status: Active Protocol: Document 01/28/18 12:53 LRN (Rec: 01/28/18 16:30 LRN [id number]) OP Mobility Evaluation Bed Mobility Supine to and from Sit Transfers long sit to supine. Supine to long sit to sitting at edge. Transfers Sit to Stand Occasionally requires 2 attempts. PT-OP-H Neuro Start: 01/28/18 12:49 Freq: Status: Active Protocol: Document 01/28/18 12:53 LRN (Rec: 01/28/18 16:30 LRN [id number]) Sensation Evaluation Location Details Right Foot Light Touch Impaired Sharp/Dull Impaired Deep Pressure Intact/Normal Left Foot Light Touch Impaired Sharp/Dull Impaired Deep Pressure Intact/Normal PT-OP-J Posture/Palpation/Skin Start: 01/28/18 12:49 Freq: Status: Active Protocol: Document 01/28/18 12:53 LRN (Rec: 01/28/18 16:30 LRN [id number]) Posture Evaluation Position Standing Evaluation View Anterior Head/C-Spine Posture Forward Head T-Spine Posture Increased Kyphosis L-Spine Posture Flattened Shoulder Posture (L) Rounded (R) Rounded (R) Elevated Pelvis Posture Posterior Tilted Ankle/Foot Posture (L) Forefoot Abducted PT-OP-M Strength Start: 01/28/18 12:49 Freq: Status: Active Protocol: Document 01/28/18 12:53 LRN (Rec: 01/28/18 16:30 LRN [id number]) Hip Strength Hip Manual Muscle Testing Right Flexion (L2) 3+ Fair+ Extension (S1) 3+ Fair+ Abduction 3+ Fair+ Left Flexion (L2) 3+ Fair+ Extension (S1) 3+ Fair+ Abduction 3+ Fair+ Knee Strength Knee Manual Muscle Testing Right Flexion (S2) 3+ Fair+ Extension (L3) 4 Good Left Flexion (S2) 3+ Fair+ Extension (L3) 4 Good Ankle/Foot Strength Ankle and Foot Manual Muscle Testing Right Dorsiflexion (L4) 4 Good Plantarflexion (S1) 4 Good Inversion 4 Good Eversion (S1) 3+ Fair+ Left Dorsiflexion (L4) 4 Good Plantarflexion (S1) 4 Good Inversion 4 Good PT-OP-Q Treatments Start: 01/28/18 12:49 Freq: Status: Active Protocol: Document 02/28/18 10:28 EA (Rec: 02/28/18 10:32 EA [id number]) Cardio Equipment Recumbent Stepper (Sci-Fit) Duration (Minutes) 10 Resistance 1.0 Seat Position 13 Other For movement of thoracic rotation Therapeutic Exercises Standing Exercises 1 Standing Exercise Name Lunge and lunge with arm swings Side bilateral Equipment Used Parallel bars Reps/Minutes 10 x 2 Comments Practiced movement, then with speed Other Exercises 1 Other Exercise Name Sit to Stand Reps/Minutes 10x moving fast Comments LOB x 1 Neuro Re-Education Treatment Balance Activities 5 Details 4 step up with reaching FWD Reps/Duration x 3 mins each side Comments FWD/Sideways 4 Details Obstacle walks Equipment foot jeyson and 2# AW Reps/Duration x 5 lines 3 Details Green sport cord: FW/BWD/SWD stepping Reps/Duration x 8 mins 2 Details Blue foam NBOS/stagerred stance with arm challenge and vestibular challenge Reps/Duration 5 min PT-OP-T Assessment and Plan Start: 01/28/18 12:49 Freq: Status: Active Protocol: Document 02/28/18 10:28 HENRI (Rec: 02/28/18 10:32 EA [id number]) Physical Therapy Assessment Assessment Summary Assessment Tolerated treatment well with mild dizzines after sit to stand. Physical Therapy Plan Next Visit Focus/Plan Next Visit Plan Cont. current plan. Progress as tolerated. Please Sign and Return: I have reviewed this Plan of Care and certify that the skilled therapy services above are required to meet the patient?s needs. Physician Signature Date Printed Name and Credentials Clinical Instructor Signature Printed Name and Credentials
--- NOTE | 2018-03-04 16:51 | PT.OTN ---
Current Diagnoses Parkinson's disease (03/04/18) Physical Therapy Treatment Note PT-OP-A Visit Information Start: 01/28/18 12:49 Freq: Status: Active Protocol: Document 03/04/18 09:45 LRN (Rec: 03/04/18 10:34 LRN [id number]) Out-Patient Physical Therapy Visit Information Visit Information Visit Type Progress Note Visit Note 06/26 Visit Start Time 09:45 Visit Stop Time 10:36 Total Visit Minutes 51 Visit Number 10 Number of CIGAR HEAD HOLER Visits 0 Evaluation Information Evaluation Date 01/28/18 PT-OP-B Current Condition Start: 01/28/18 12:49 Freq: Status: Active Protocol: Document 01/28/18 12:53 LRN (Rec: 01/28/18 16:30 LRN [id number]) Current Condition History of Current Condition Onset Date 2012 Current Complaints Decreased in balance with stair ambulation and sit to stand. 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 He dienies any recent loss of balance episodes. His most recent was 1 month ago when he was coming to stand and his foot caught on something. Prior Treatments and Tests Pt has had cardiac rehab in 2004 x 2, pulmonary rehab - 2012. He attends independent exercise in the pulmonary clinic every sunday and sunday for 40' of exercise. Treatment Goals Patient/Caregiver Goals Pt goal is to improve his balance so that he doesn't have to worry about loss of balance with stair ambulation and when coming to stand from a sitting positioni. Prior Functional Status Baseline Function- ADL's Independent Baseline Function- Mobility Independent Baseline Function- Gait Slow gait with short step lengths, without an assistive device. Current Functional Impairments (Reported) Functional Limitations- ADL's Diffculty with sit to stand, occasional loss of balance. Difficulty with donning socks, requests information on a sock aid. Functional Limitations- Mobility/Gait Unsteady with stair ambulation , requires use of railing for safety and several trips up/ down if needing to carry more than one item. Personal Factors Other Personal Factors That May Effect Pt lives in a 2 story house Therapy/Recovery that requires him to use railing for safety; therefore pt is dependent on railing with use of stairs. Pt diagnosis of Parkinson's and intermittent back and neck pain. Uncontrolled blood pressure, currently too low. PT-OP-C Subjective Start: 01/28/18 12:49 Freq: Status: Active Protocol: Document 03/04/18 09:45 LRN (Rec: 03/04/18 16:35 LRN [id number]) Patient Questionnaires ABC- Activity Specific Balance Confidence Scale ABC Score 69% of self confidence ABC Functional Impairment 20 to <40% Impaired (Score 61- 80) PT-OP-D Balance Start: 01/28/18 12:49 Freq: Status: Active Protocol: Document 01/28/18 12:53 LRN (Rec: 01/28/18 16:30 LRN [id number]) OP-PT Balance Assessment Sitting Balance Static Sitting Balance Ability Normal Standing Balance Static Standing Balance Ability Normal Dynamic Standing Balance Ability Fair Device Used None Standing Balance Comments Poor SLS. Tinetti Balance Assessment Sitting Balance Sitting Balance Steady, safe Arising from Chair Ability to Arise Able, w/o using arms Standing Balance Immediate Standing Balance Steady w/o support Turning Step Pattern Turning 360 Degrees Continuous steps Stability Turning 360 Degrees Steady Sitting Down Sitting Down Safe, steady Gait and Step Right Foot Step Length Does not pass stance ft. Right Foot Step Height Completely clears floor Left Foot Step Length Does not pass stance foot Left Foot Step Height Completely clears floor Step Description Step Symmetry Step length appears equal Step Continuity Steps appear continuous Gait Description Path Description Straight Trunk Description No sway but posturing Walking Stance Heels apart Scoring and Interpretation Tinetti Composite Score (points) 16 Interpretation of Scores High risk for falls(< 19) Tinetti Impairment Rating from Composite 40 to <60% Impaired (Score 12- Score 16) Grajeda Fall Scale Copyright Permission Taras JM, Taras RM, Michael SJ. Development of a scale to identify the fall- prone patient. Can J Aging 1989;8;366-7. Ángel Grajeda (2009). Preventing patient falls. (2nd ed). [place]: Escobar. PT-OP-E Functional Tests Start: 01/28/18 12:49 Freq: Status: Active Protocol: Document 02/21/18 09:49 LRN (Rec: 02/21/18 10:12 LRN [id number]) Functional Tests Five Times Sit to Stand Test Score 11.60 sec's Comments Norm for 80-89 yr olds is 14.8 sec's PT-OP-G Mobility & Gait Start: 01/28/18 12:49 Freq: Status: Active Protocol: Document 01/28/18 12:53 LRN (Rec: 01/28/18 16:30 LRN [id number]) OP Mobility Evaluation Bed Mobility Supine to and from Sit Transfers long sit to supine. Supine to long sit to sitting at edge. Transfers Sit to Stand Occasionally requires 2 attempts. PT-OP-H Neuro Start: 01/28/18 12:49 Freq: Status: Active Protocol: Document 01/28/18 12:53 LRN (Rec: 01/28/18 16:30 LRN [id number]) Sensation Evaluation Location Details Right Foot Light Touch Impaired Sharp/Dull Impaired Deep Pressure Intact/Normal Left Foot Light Touch Impaired Sharp/Dull Impaired Deep Pressure Intact/Normal PT-OP-J Posture/Palpation/Skin Start: 01/28/18 12:49 Freq: Status: Active Protocol: Document 03/04/18 09:45 LRN (Rec: 03/04/18 16:37 LRN [id number]) Posture Evaluation Comments Posture Comments Wall to Tragus = 20 cm (norm is 10 cm) PT-OP-M Strength Start: 01/28/18 12:49 Freq: Status: Active Protocol: Document 01/28/18 12:53 LRN (Rec: 01/28/18 16:30 LRN [id number]) Hip Strength Hip Manual Muscle Testing Right Flexion (L2) 3+ Fair+ Extension (S1) 3+ Fair+ Abduction 3+ Fair+ Left Flexion (L2) 3+ Fair+ Extension (S1) 3+ Fair+ Abduction 3+ Fair+ Knee Strength Knee Manual Muscle Testing Right Flexion (S2) 3+ Fair+ Extension (L3) 4 Good Left Flexion (S2) 3+ Fair+ Extension (L3) 4 Good Ankle/Foot Strength Ankle and Foot Manual Muscle Testing Right Dorsiflexion (L4) 4 Good Plantarflexion (S1) 4 Good Inversion 4 Good Eversion (S1) 3+ Fair+ Left Dorsiflexion (L4) 4 Good Plantarflexion (S1) 4 Good Inversion 4 Good PT-OP-Q Treatments Start: 01/28/18 12:49 Freq: Status: Active Protocol: Document 03/04/18 09:45 LRN (Rec: 03/04/18 16:47 LRN [id number]) Cardio Equipment Recumbent Stepper (Sci-Fit) Duration (Minutes) 10 Resistance 1.0 Seat Position 13 Other For movement of thoracic rotation Therapeutic Exercises Other Exercises 2 Other Exercise Name Hands/Knees: Cat/Cow Reps/Minutes 15x Comments Extra time needed for training . 1 Other Exercise Name Sit to Stand Reps/Minutes 10x moving fast Comments LOB x 1 Neuro Re-Education Treatment Balance Activities 7 Details Walking with head movements, & with EO, EC, & Backwards Reps/Duration 25' 5 Details 4 step up with reaching FWD Reps/Duration x 3 mins each side Comments FWD/Sideways Self-Care/Home Management Treatment Education Patient Education Home Exercise Program Activities Self-Care/Home Management Activities HEP for Cat/Cow ex. PT-OP-T Assessment and Plan Start: 01/28/18 12:49 Freq: Status: Active Protocol: Document 03/04/18 09:45 LRN (Rec: 03/04/18 10:34 LRN [id number]) Physical Therapy Assessment Goals Three Impairment Decreased safety with gait ( steps), with decr trunk & hip mobility/strength [facility] Goal (LTG) Pt will be able to ambulate stairs without LOB and use of one railing as he improves in trunk/ankle mobility and strength. LTG Duration 5 weeks. Two Impairment Decreased balance with poor posturing [facility] Goal (LTG) Pt will demonstrate improved posturing with no LOB with immediate sit to stand. (No LOB today with sit to stand). LTG Duration 5 weeks One Impairment Lacks appropriate Home Exercise Program (HEP) Motion Study Engineer Goal (LTG) Pt will be independent with a HEP/Self care program LTG Duration 5 weeks Progress Towards Goals Progress Comments Goal #1: Pt is able to ambulate up/down stairs with use of 1 railing, but feels greater safety with 2 rails. Goal #2: Pt able to perform sit to stand without LOB and appropropriate speed. Goal #3: Progressing. Modifications needed due to back pain. Assessment Summary Assessment The pt has improved in his stability with sit to stand. He is being hindered in improving his trunk/hip mobility and strength due to back pain. His posture is poor with a Wall to Tragus of 20 cm (normal is 10 cm). The pt tolerance to improving his mobility/stability lately has been poor due to back pain. He continues to work on his overall strength and endurance through a cardiac rehab maintenance program. The pt could benefit from a few more visits for balance training and to be placed on a HEP appropriate for his level at this time. Overall the pt has improved in function per ABC score scale indicating he has 69% self confidence in Balance . Physical Therapy Plan Frequency and Duration Frequency of Treatment 1-2x/Week Duration of Treatment 7 weeks Plan of Care Start Date 01/28/18 Plan of Care End Date 04/01/18 Next Visit Focus/Plan Next Visit Plan Progress onto HEP of balance, mobility and strengthening ex' s., therapy 1-2 times per week with DC in 2-4 weeks.
--- NOTE | 2018-03-04 16:52 | PT.OPPOC ---
Current Diagnoses Parkinson's disease (03/04/18) Provider Visit Care Team Role Provider Type Jessica Celestin MD Family Provider Physician Primary Care Provider Specialty: Internal Medicine Address: [address] [place] [address], [id number] Email: Eliud Shanks MD Attending Provider Physician Specialty: Neurology Address: [address] [place] [address], [id number] Email: [email or web address] Plan Of Care PT-OP-T Assessment and Plan Start: 01/28/18 12:49 Freq: Status: Active Protocol: Document 03/04/18 09:45 LRN (Rec: 03/04/18 10:34 LRN [id number]) Physical Therapy Assessment Goals Three Impairment Decreased safety with gait ( steps), with decr trunk & hip mobility/strength Long-Term Goal (LTG) Pt will be able to ambulate stairs without LOB and use of one railing as he improves in trunk/ankle mobility and strength. LTG Duration 5 weeks. Two Impairment Decreased balance with poor posturing Long-Term Goal (LTG) Pt will demonstrate improved posturing with no LOB with immediate sit to stand. (No LOB today with sit to stand). LTG Duration 5 weeks One Impairment Lacks appropriate Home Exercise Program (HEP) Long-Term Goal (LTG) Pt will be independent with a HEP/Self care program LTG Duration 5 weeks Progress Towards Goals Progress Comments Goal #1: Pt is able to ambulate up/down stairs with use of 1 railing, but feels greater safety with 2 rails. Goal #2: Pt able to perform sit to stand without LOB and appropropriate speed. Goal #3: Progressing. Modifications needed due to back pain. Assessment Summary Assessment The pt has improved in his stability with sit to stand. He is being hindered in improving his trunk/hip mobility and strength due to back pain. His posture is poor with a Wall to Tragus of 20 cm (normal is 10 cm). The pt tolerance to improving his mobility/stability lately has been poor due to back pain. He continues to work on his overall strength and endurance through a cardiac rehab maintenance program. The pt could benefit from a few more visits for balance training and to be placed on a HEP appropriate for his level at this time. Overall the pt has improved in function per ABC score scale indicating he has 69% self confidence in Balance . Physical Therapy Plan Frequency and Duration Frequency of Treatment 1-2x/Week Duration of Treatment 7 weeks Plan of Care Start Date 01/28/18 Plan of Care End Date 04/01/18 Next Visit Focus/Plan Next Visit Plan Progress onto HEP of balance, mobility and strengthening ex' s., therapy 1-2 times per week with DC in 2-4 weeks. Plan of Care Dates Plan of Care Start Date 01/28/18 Plan of Care End Date 04/01/18
--- NOTE | 2018-03-07 16:48 | PT.OTN ---
Current Diagnoses Parkinson's disease (03/07/18) Physical Therapy Treatment Note PT-OP-A Visit Information Start: 01/28/18 12:49 Freq: Status: Active Protocol: Document 03/07/18 09:49 LRN (Rec: 03/07/18 10:32 LRN [id number]) Out-Patient Physical Therapy Visit Information Visit Information Visit Type Treatment Note Visit Note 08/06 Visit Start Time 09:49 Visit Stop Time 10:30 Total Visit Minutes 40 Visit Number 11 Number of SLIP TENDER Visits 0 Evaluation Information Evaluation Date 01/28/18 PT-OP-B Current Condition Start: 01/28/18 12:49 Freq: Status: Active Protocol: Document 01/28/18 12:53 LRN (Rec: 01/28/18 16:30 LRN [id number]) Current Condition History of Current Condition Onset Date 2012 Current Complaints Decreased in balance with stair ambulation and sit to stand. 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 He dienies any recent loss of balance episodes. His most recent was 1 month ago when he was coming to stand and his foot caught on something. Prior Treatments and Tests Pt has had cardiac rehab in 2004 x 2, pulmonary rehab - 2012. He attends independent exercise in the pulmonary clinic every sunday and sunday for 40' of exercise. Treatment Goals Patient/Caregiver Goals Pt goal is to improve his balance so that he doesn't have to worry about loss of balance with stair ambulation and when coming to stand from a sitting positioni. Prior Functional Status Baseline Function- ADL's Independent Baseline Function- Mobility Independent Baseline Function- Gait Slow gait with short step lengths, without an assistive device. Current Functional Impairments (Reported) Functional Limitations- ADL's Diffculty with sit to stand, occasional loss of balance. Difficulty with donning socks, requests information on a sock aid. Functional Limitations- Mobility/Gait Unsteady with stair ambulation , requires use of railing for safety and several trips up/ down if needing to carry more than one item. Personal Factors Other Personal Factors That May Effect Pt lives in a 2 story house Therapy/Recovery that requires him to use railing for safety; therefore pt is dependent on railing with use of stairs. Pt diagnosis of Parkinson's and intermittent back and neck pain. Uncontrolled blood pressure, currently too low. 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 Feeling overall weak. Requests only balance ex's today. Patient Questionnaires ABC- Activity Specific Balance Confidence Scale ABC Score 69% of self confidence ABC Functional Impairment 20 to <40% Impaired (Score 61- 80) PT-OP-D Balance Start: 01/28/18 12:49 Freq: Status: Active Protocol: Document 01/28/18 12:53 LRN (Rec: 01/28/18 16:30 LRN [id number]) OP-PT Balance Assessment Sitting Balance Static Sitting Balance Ability Normal Standing Balance Static Standing Balance Ability Normal Dynamic Standing Balance Ability Fair Device Used None Standing Balance Comments Poor SLS. Tinetti Balance Assessment Sitting Balance Sitting Balance Steady, safe Arising from Chair Ability to Arise Able, w/o using arms Standing Balance Immediate Standing Balance Steady w/o support Turning Step Pattern Turning 360 Degrees Continuous steps Stability Turning 360 Degrees Steady Sitting Down Sitting Down Safe, steady Gait and Step Right Foot Step Length Does not pass stance ft. Right Foot Step Height Completely clears floor Left Foot Step Length Does not pass stance foot Left Foot Step Height Completely clears floor Step Description Step Symmetry Step length appears equal Step Continuity Steps appear continuous Gait Description Path Description Straight Trunk Description No sway but posturing Walking Stance Heels apart Scoring and Interpretation Tinetti Composite Score (points) 16 Interpretation of Scores High risk for falls(< 19) Tinetti Impairment Rating from Composite 40 to <60% Impaired (Score 12- Score 16) Grajeda Fall Scale Copyright Permission Taras ENCISO, Taras RM, Michael SJ. Development of a scale to identify the fall- prone patient. Can J Aging 1989;8;366-7. Ángel Grajeda (2009). Preventing patient falls. (2nd ed). Power: Escobar. PT-OP-E Functional Tests Start: 01/28/18 12:49 Freq: Status: Active Protocol: Document 02/21/18 09:49 LRN (Rec: 02/21/18 10:12 LRN [id number]) Functional Tests Five Times Sit to Stand Test Score 11.60 sec's Comments Norm for 80-89 yr olds is 14.8 sec's PT-OP-G Mobility & Gait Start: 01/28/18 12:49 Freq: Status: Active Protocol: Document 01/28/18 12:53 LRN (Rec: 01/28/18 16:30 LRN [id number]) OP Mobility Evaluation Bed Mobility Supine to and from Sit Transfers long sit to supine. Supine to long sit to sitting at edge. Transfers Sit to Stand Occasionally requires 2 attempts. PT-OP-H Neuro Start: 01/28/18 12:49 Freq: Status: Active Protocol: Document 01/28/18 12:53 LRN (Rec: 01/28/18 16:30 LRN [id number]) Sensation Evaluation Location Details Right Foot Light Touch Impaired Sharp/Dull Impaired Deep Pressure Intact/Normal Left Foot Light Touch Impaired Sharp/Dull Impaired Deep Pressure Intact/Normal PT-OP-J Posture/Palpation/Skin Start: 01/28/18 12:49 Freq: Status: Active Protocol: Document 03/04/18 09:45 LRN (Rec: 03/04/18 16:37 LRN [id number]) Posture Evaluation Comments Posture Comments Wall to Tragus = 20 cm (norm is 10 cm) PT-OP-L Special Tests Start: 01/28/18 12:49 Freq: Status: Active Protocol: Document 03/07/18 09:49 LRN (Rec: 03/07/18 16:43 LRN [id number]) Special Tests Vascular Special Tests Other- 1 Comments HR (bpm) SpO2 (%) BP ( mmHg) Start 64 93 126/60 after ex 67 85 after rest 63 92 PT-OP-M Strength Start: 01/28/18 12:49 Freq: Status: Active Protocol: Document 01/28/18 12:53 LRN (Rec: 01/28/18 16:30 LRN [id number]) Hip Strength Hip Manual Muscle Testing Right Flexion (L2) 3+ Fair+ Extension (S1) 3+ Fair+ Abduction 3+ Fair+ Left Flexion (L2) 3+ Fair+ Extension (S1) 3+ Fair+ Abduction 3+ Fair+ Knee Strength Knee Manual Muscle Testing Right Flexion (S2) 3+ Fair+ Extension (L3) 4 Good Left Flexion (S2) 3+ Fair+ Extension (L3) 4 Good Ankle/Foot Strength Ankle and Foot Manual Muscle Testing Right Dorsiflexion (L4) 4 Good Plantarflexion (S1) 4 Good Inversion 4 Good Eversion (S1) 3+ Fair+ Left Dorsiflexion (L4) 4 Good Plantarflexion (S1) 4 Good Inversion 4 Good PT-OP-Q Treatments Start: 01/28/18 12:49 Freq: Status: Active Protocol: Document 03/07/18 09:49 LRN (Rec: 03/07/18 10:32 LRN [id number]) Therapeutic Exercises Supine Exercises 2 Supine Exercise Name LE Roll in/outs with and without deep breathing Side bilateral Reps/Minutes 15x each Comments Extra time needed for coordination with breathing 1 Supine Exercise Name Deep Breathing Reps/Minutes 10 x, 3 episodes Comments V.cuing needed for slower & deeper breathe, movement of abdomen vs chest Other Exercises 2 Other Exercise Name Modified to Sitting position Reps/Minutes 10x Comments Lordosis to minimal trunk flexion Neuro Re-Education Treatment Balance Activities 8 Details Side stepping over 1/2 balls. Reps/Duration 5' 4 Details Obstacle walks Equipment foot jeyson and 2# AW Reps/Duration 15' Comments Pt needed one sit rest. Focus on stepping over with R LE. 2 Details Blue foam NBOS/staggered stance with arm challenge and vestibular challenge Reps/Duration 5 min Comments Pt needed sit rest afterwards. Self-Care/Home Management Treatment Education Patient Education Home Exercise Program Activities Self-Care/Home Management Activities Pt instructed in SLS balance in corner with safety techniques applied. PT-OP-T Assessment and Plan Start: 01/28/18 12:49 Freq: Status: Active Protocol: Document 03/07/18 09:49 LRN (Rec: 03/07/18 10:32 LRN [id number]) Physical Therapy Assessment Goals Three Impairment Decreased safety with gait ( steps), with decr trunk & hip mobility/strength Care Home Goal (LTG) Pt will be able to ambulate stairs without LOB and use of one railing as he improves in trunk/ankle mobility and strength. LTG Duration 5 weeks. Two Impairment Decreased balance with poor posturing Care Home Goal (LTG) Pt will demonstrate improved posturing with no LOB with immediate sit to stand. (No LOB today with sit to stand). LTG Duration 5 weeks One Impairment Lacks appropriate Home Exercise Program (HEP) [employer] Manager Goal (LTG) Pt will be independent with a HEP/Self care program LTG Duration 5 weeks Assessment Summary Assessment Pt had fair > poor tolerance to therapy activities. His SpO2 levels decreased with balance ex's and he needed rest between activities due to weakness and fatigue. He was able to return to normal with rest periods. Pt has trouble stepping over objects leading with R leg. He has less balance when his R leg is forward of his lift. Physical Therapy Plan Frequency and Duration Frequency of Treatment 1-2x/Week Duration of Treatment 7 weeks Plan of Care Start Date 01/28/18 Plan of Care End Date 04/01/18 Next Visit Focus/Plan Next Visit Plan Discuss possible referral for LVST program for Parkinson's. Avoid rotation of trunk into pain. Issue HEP of balance, mobility & strengthening ex's. Therapy 1-2 times per week with probable DC in 2-3 weeks .
--- NOTE | 2018-03-22 15:40 | PT.OPDS ---
Current Diagnoses Parkinson's disease (03/07/18) Provider Visit Care Team Role Provider Type Jessica Celestin MD Family Provider Physician Primary Care Provider Specialty: Internal Medicine Address: [address] [place], [address] Email: Eliud Shanks MD Attending Provider Physician Specialty: Neurology Address: [address] [place] [address], [id number] Email: [email or web address] Number Visit Number 11 Discharge Summary PT-OP-B Current Condition Start: 01/28/18 12:49 Freq: Status: Active Protocol: Document 01/28/18 12:53 LRN (Rec: 01/28/18 16:30 LRN [id number]) Current Condition History of Current Condition Onset Date 2012 Current Complaints Decreased in balance with stair ambulation and sit to stand. 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 He dienies any recent loss of balance episodes. His most recent was 1 month ago when he was coming to stand and his foot caught on something. Prior Treatments and Tests Pt has had cardiac rehab in 2004 x 2, pulmonary rehab - 2012. He attends independent exercise in the pulmonary clinic every sunday and sunday for 40' of exercise. Treatment Goals Patient/Caregiver Goals Pt goal is to improve his balance so that he doesn't have to worry about loss of balance with stair ambulation and when coming to stand from a sitting positioni. Prior Functional Status Baseline Function- ADL's Independent Baseline Function- Mobility Independent Baseline Function- Gait Slow gait with short step lengths, without an assistive device. Current Functional Impairments (Reported) Functional Limitations- ADL's Diffculty with sit to stand, occasional loss of balance. Difficulty with donning socks, requests information on a sock aid. Functional Limitations- Mobility/Gait Unsteady with stair ambulation , requires use of railing for safety and several trips up/ down if needing to carry more than one item. Personal Factors Other Personal Factors That May Effect Pt lives in a 2 story house Therapy/Recovery that requires him to use railing for safety; therefore pt is dependent on railing with use of stairs. Pt diagnosis of Parkinson's and intermittent back and neck pain. Uncontrolled blood pressure, currently too low. Patient Questionnaires ABC- Activity Specific Balance Confidence Scale ABC Score 69% of self confidence ABC Functional Impairment 20 to <40% Impaired (Score 61- 80) PT-OP-T Assessment and Plan Start: 01/28/18 12:49 Freq: Status: Active Protocol: Document 03/22/18 15:30 LRN (Rec: 03/22/18 15:37 LRN [id number]) Physical Therapy Assessment Goals Three Impairment Decreased safety with gait ( steps), with decr trunk & hip mobility/strength Mcfp Goal (LTG) Pt will be able to ambulate stairs without LOB and use of one railing as he improves in trunk/ankle mobility and strength. LTG Duration 5 weeks. Two Impairment Decreased balance with poor posturing Php Website [employer] Goal (LTG) Pt will demonstrate improved posturing with no LOB with immediate sit to stand. (No LOB today with sit to stand). LTG Duration 5 weeks One Impairment Lacks appropriate Home Exercise Program (HEP) Mcfp Goal (LTG) Pt will be independent with a HEP/Self care program LTG Duration 5 weeks Progress Towards Goals Progress Comments On 03/04/18: Goal #1: Pt was able to ambulate up/down stairs with use of 1 railing, but felt greater safety with 2 rails. Goal #2: Pt was able to perform sit to stand without LOB and appropropriate speed. Goal #3: Progressing onto HEP . Modifications needed due to onset of back pain. Assessment Summary Assessment The pt was noted to be hospitalized when seen recently as an inpatient. Due to the change in medical status the pt is being discharged from outpatient physical therapy. He will need to be referred back to physical therapy when medically appropriate. I would recommend if being referred back to physical therapy, refer him specifically for the Parkinson's Program. Physical Therapy Plan Discharge Physical Therapy Discharge Reasons Change in Medical Status Discharge Comments If being referred back for therapy please refer him for the Parkinson's Physical therapy Program.
== END 2018-08-13 11:05 ==
LOC: PHYS 09:45
PROVIDERS: Family Provider Internal Medicine; PCP Internal Medicine; Visit Provider Psychiatry & Neurology Neurology
DX: G20 Parkinson's disease (principal)
CPT/HCPCS: 97110; 97112; 97116; 97162

== ENCOUNTER 2018-03-14 07:48 | Inpatient (IN) | payer MEDICARE, OTHER, SELFPAY ==
[2018-03-14] VITALS (12 sets, daily range): BP systolic 131–160; BP diastolic 64–82; PULSE 58–85; RESP 16–22; TEMP 36.3–36.9; O2SAT 83–100; BMI 24.7
--- NOTE | 2018-03-14 | DI.ECHO.S_ITS ---
[facility] +---------+ : : [address] : [place] : : : : [id number] : : : : Phone: [phone]+ Echocardiogram Report + + :Name: TOPHER BELTRAN Study Date: 03/14/2018 Height: 69 in : :[facility] Weight: 168 lb : : Gender: Male BSA: 1.9 m2 : :: 1935 Age: 82 yrs BP: 139/69 mmHg: :Reason For Study: Syncope : : Performed By: Korin Lopez : :Referring: VIRAJ IRELAND : + + Interpretation Summary The patient was in normal sinus rhythm during the exam. The patient had a bundle branch block rhythm during the exam. The left ventricle is normal in size. Septal motion is consistent with conduction abnormality. There is moderate hypokinesis noted of the left ventricular apex and periapical mann with an estimated ejection fraction in the range of 40-50%. The right ventricle is mildly dilated. Right ventricular systolic function is mildly reduced. The right ventricular systolic pressure is estimated at 45 mmHg assuming a right atrial pressure of 3 mm Hg. The IVC is of normal diameter and collapses greater than 50% with a sniff. This suggests a low right atrial pressure of 3 mm Hg. No other echocardiographic abnormalities seen. The etiology for this patient's syncope is not clearly identified on this examination. The presence of modest right ventricular enlargement and hypokinesis in addition to a moderate elevation in pulmonary artery pressure suggest the possibility of pulmonary emboli. Clinical correlation suggested. Procedure: A two-dimensional transthoracic echocardiogram with color flow and Doppler was performed. The study quality was technically adequate. Comparison is made with the echocardiogram of 02-17-10. The patient had a bundle branch block rhythm during the exam. The patient was in normal sinus rhythm during the exam. Left Ventricle: The left ventricle is normal in size. There is normal left ventricular wall thickness. The ejection fraction is estimated to be 45-50%. Septal motion is consistent with conduction abnormality. There is moderate hypokinesis noted of the left ventricular apex and periapical mann with an estimated ejection fraction in the range of 40-50%. Right Ventricle: The right ventricle is mildly dilated. Right ventricular systolic function is mildly reduced. Atria: The left atrium is moderately dilated. Right atrium not well visualized. The interatrial septum is intact with no evidence for an atrial septal defect. Mitral Valve: The mitral valve is grossly normal. There is mild mitral regurgitation. Aortic Valve: The aortic valve is moderately calcified. Leaflet mobility is mildly reduced. There is mild aortic valve sclerosis. There is mild aortic regurgitation. Tricuspid Valve: The tricuspid valve is not well visualized. There is trace tricuspid regurgitation. The right ventricular systolic pressure is estimated at 45 mmHg assuming a right atrial pressure of 3 mm Hg. Pulmonic Valve: The pulmonic valve is not well seen, but is grossly normal. There is mild pulmonic regurgitation. Great Vessels: The aortic root is normal size. The ascending aorta is at the upper limits of normal in size. The IVC is of normal diameter and collapses greater than 50% with a sniff. This suggests a low right atrial pressure of 3 mm Hg. Pericardium/ Pleura There is no pericardial effusion. There is no pleural effusion. MMode/2D Measurements & Calculations LVIDd: 4.9 cm LVOT diam: 2.4 cm LVIDs: 3.5 cm Ao root diam: 3.6 cm FS: 28.0 % Aortic Jxn: 3.3 cm EPSS: 0.91 cm asc Aorta Diam: 3.5 cm IVSd: 0.88 cm Ao Arch Diam (Prox Trans): 3.3 cm LVPWd: 0.76 cm LV draper. diameter/BSA (cm/m^2): 2.6 LV sys. diameter/BSA (cm/m^2): 1.8 LA dimension: 4.2 cm IVC diam: 1.1 cm LA A2 area: 23.6 cm2 LA A4 area: 23.4 cm2 LA length (vol): 5.5 cm LA vol: 84.7 ml LA vol index: 44.2 ml/m2 BARBIE (plan): 1.8 cm2 Doppler Measurements & Calculations Ao V2 max: 208.2 cm/sec LVOT Max Damian: 84.5 cm/sec Ao V2 mean: 133.4 cm/sec LV V1 max P.9 mmHg Ao max P.3 mmHg LV V1 VTI: 18.5 cm Ao mean P.4 mmHg BARBIE(I,D): 2.0 cm2 Ao V2 VTI: 42.2 cm BARBIE(V,D): 1.8 cm2 sev ratio: 0.44 BARBIE indexed to BSA (cm^2/m^2): 1.0 MV E max damian: 41.6 cm/sec TR max damian: 324.1 cm/sec MV A max damian: 92.9 cm/sec TR max P.0 mmHg MV E/A: 0.45 PA V2 max: 110.3 cm/sec Med Peak E' Damian: 4.5 cm/sec PA V2 mean: 66.7 cm/sec E/E' med: 9.2 PA mean P.2 mmHg Lat Peak E' Damian: 6.8 cm/sec PA Accel Time: 0.12 sec E/E' lat: 6.1 E/e' average: 7.6 MV dec time: 0.23 sec MV P1/2t: 68.5 msec MV P1/2t max damian: 40.6 cm/sec MVA(P1/2t): 3.2 cm2 Reading Physician:05:12 PM
--- NOTE | 2018-03-14 07:56 | DI.RAD.S_ITS ---
PROCEDURE: XR CHEST 1V INDICATIONS: chest pain TECHNIQUE: One view of the chest was acquired. COMPARISON: [facility], , CHEST 2 VIEW, 11/23/2016, 8:05. FINDINGS: Surgical changes and devices: Linear area of high attenuation within the right upper quadrant of the midportion of the abdomen probably is related to prior cholecystectomy.. Lungs and pleura: Diffuse reticulonodular interstitial prominence is identified predominantly seen within the lung apices and the lung bases. There is relative sparing within the perihilar regions. No lobar consolidation, large effusion, or pneumothorax is evident. Mediastinum: Mediastinal contours appear normal. Heart size is normal. Bones and chest wall: No suspicious bony lesions. Degenerative changes of the spine and shoulders are not adequately evaluated. Overlying soft tissues appear unremarkable. IMPRESSION: Chronic interstitial lung changes appear to be similar to the prior study. The possibility of superimposed pulmonary edema or atypical infection cannot be excluded. Dictated by: Crow Calixto M.D. on 03/14/2018 at 8:37 Approved by: Crow Calixto M.D. on 03/14/2018 at 8:38
--- NOTE | 2018-03-14 08:00 | DI.CT.S_ITS ---
PROCEDURE: CT HEAD/BRAIN WO CON INDICATIONS: 82 year-old male with syncope. TECHNIQUE: Noncontrast 4.5 mm thick angled axial sections acquired from the foramen magnum to the vertex, with coronal and sagittal reformats. For radiation dose reduction, the following was used: automated exposure control, adjustment of mA and/or kV according to patient size. COMPARISON: [facility], CT, HEAD WITHOUT CONTRAST, 10/11/2014, 10:22. FINDINGS: Image quality: Excellent. CSF spaces: Basal cisterns are patent. No extra-axial fluid collections. The ventricles are symmetric in size and shape. Brain: No intracranial bleeds or masses. Localized encephalomalacia of the right parietal lobe is again noted, consistent with nonacute ischemic insult. There are mild periventricular white matter chronic small vessel ischemic changes. There is intracranial internal carotid and bilateral vertebral artery atherosclerosis. Skull and face: Calvarium and visualized facial bones appear intact, without suspicious lesions. Sinuses: Visualized sinuses and mastoids are clear. IMPRESSION: 1. No acute intracranial abnormalities. 2. 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 3. Mild periventricular white matter chronic small vessel ischemic change. Dictated by: Allan Garces M.D. on 03/14/2018 at 8:17 Approved by: Allan Garces M.D. on 03/14/2018 at 8:21
--- NOTE | 2018-03-14 08:11 | ED.SYNCOPE ---
HPI - Syncope General Chief Complaint: Syncope Stated Complaint: Syncope / GLF Time Seen by Provider: 03/14/18 07:56 Source: patient and EMS Mode of arrival: EMS Limitations: no limitations History of Present Illness HPI narrative: Patient is an 82-year-old male presents after 2 syncopal episodes. He has been having chest pain off and on for the last 3 days. He cannot distinguish if it is with exertion or at rest. He currently does not have any chest pain. He says he went to pull a stool out at the kitchen, and he fell to the floor. It sounds as though it happened again afterwards. His heard the commotion and found him. No sign of head trauma no neck pain. According to his he is supposed to get an echocardiogram tomorrow. He has been having increased shortness of breath with exertion. He is becoming more weak and fatigued. He is taking Lasix. Room air oxygen saturation is 88%. MD complaint: loss of consciousness Related Data Home Medications Medication Instructions Recorded Confirmed MULTIVITAMIN (Multivitamin 1 cap PO EVERY DAY #0 02/11/10 -) clobetasol-emollient PRN #0 12/20/16 fluticasone [Flonase Allergy BID #0 12/20/16 Relief] Previous Rx's Medication Instructions Recorded amantadine HCl 100 mg PO BID #180 cap 12/20/17 Allergies Allergy/AdvReac Type Severity Reaction Status Date / Time INGREDIENT: NDA - NO KNOWN Allergy Unknown Uncoded 12/26/17 12:03 DRUG ALLERGIES Review of Systems Review of Systems All systems reviewed & are unremarkable except as noted in HPI and below Constitutional Denies body ache(s), Denies chills, Reports fatigue, Denies fever(s) and Denies frequent falls Eyes Denies blurry vision and Denies diplopia ENT Ears, Nose, Mouth, and Throat: Denies vertigo and Denies dizziness Cardiovascular Reports as per HPI, Reports chest pain, Reports syncope, Denies pedal edema and Reports dyspnea on exertion Respiratory Denies cough, Reports dyspnea on exertion and Denies wheezing Gastrointestinal Gastrointestinal: Denies abdominal pain, Denies change in bowel habits, Denies diarrhea, Denies nausea and Denies vomiting Musculoskeletal Denies back pain, Denies muscle weakness, Denies numbness and Denies tingling Neurologic Denies vertigo, Denies dizziness, Reports syncope, Denies frequent falls, Denies numbness and Denies tingling Endocrine Reports fatigue Allergic/Immunologic Denies wheezing PFSH Medical History Carotid artery disease (Acute) Coronary artery disease (Acute) GERD (gastroesophageal reflux disease) (Acute) Hypertension (Acute) Back pain (Acute) Concussion (Acute) HBP (high blood pressure) (Acute) Neck pain (Acute) Parkinsons (Acute) TIA (transient ischemic attack) (Acute) Surgical History History of tonsillectomy Status post appendectomy Status post cholecystectomy Family History Mother Hypertension Stroke Social History Smoking Status: Former smoker Exam Initial Vital Signs Initial Vital Signs: Vital Signs Temperature 97.7 F 03/14/18 07:56 Pulse Rate 73 03/14/18 07:56 Respiratory Rate 20 03/14/18 07:56 Blood Pressure 154/81 H 03/14/18 07:56 Pulse Oximetry 88 L 03/14/18 07:56 Const General: cooperative and frail appearing HENMT Head: normal to inspection, normocephalic and No contusion Eyes Pupils: PERRL EOM: EOM intact bilaterally Neck Neck: No trachea midline Resp Effort & Inspection: normal respiratory effort and able to speak in complete sentences Auscultation: clear to auscultation bilaterally Cardio Rate: regular rate Rhythm: regular rhythm Heart Sounds: S1 normal and S2 normal Skin General: no rashes or lesions noted, No jaundice and No petechiae Neuro General: alert, awake, oriented x3, gait normal and no focal motor deficits Speech: speech normal Course Orders Ordered: ED Orders 03/14/18 07:56 XR chest 1V Stat EKG-12 Lead Stat 03/14/18 08:00 CT head/brain wo con Stat 03/14/18 08:20 B Type Natriuretic Peptide Stat Complete Blood Count AUTO DIFF Stat Comprehensive Metabolic Panel Stat Prothrombin Time INR Stat Troponin with CK Cardiac Panel Stat 03/14/18 10:05 US periph venous low extrem bi Stat Discontinued Medications Furosemide (Lasix) 40 mg IV NOW ONE Stop: 03/14/18 11:11 Last Admin: 03/14/18 11:20 Dose: 40 mg Sodium Chloride (Normal Saline 0.9%) 1,000 mls @ 1,000 mls/hr IV BOLUS ONE Stop: 03/14/18 08:55 Last Infusion: 03/14/18 09:35 Dose: 0 mls/hr Admin: 03/14/18 08:40 Dose: 1,000 mls/hr Consultations Consultation #1: Dr. Khalil, has been updated on patient's symptoms and test results as agrees with admission. Vital Signs - 8 hr 03/14/18 07:56 03/14/18 09:02 03/14/18 10:09 Temperature 97.7 F Pulse Rate 73 63 60 Respiratory Rate 20 18 18 Blood Pressure 154/81 H Blood Pressure [Left Arm] 144/70 H 136/69 H Pulse Oximetry 88 L 100 100 03/14/18 10:37 03/14/18 11:06 03/14/18 12:48 Temperature Pulse Rate 58 L 73 59 L Respiratory Rate 21 16 22 Blood Pressure Blood Pressure [Left Arm] 160/74 H 146/82 H 149/67 H Pulse Oximetry 100 93 99 MDM - Syncope Differential Diagnosis Likely vasovagal syncope, subarachnoid hemorrhage, pulmonary embolism and dehydration Medical Records Attestation: I reviewed the patient's medical records. Lab Data Result diagrams: 03/14/18 08:20 03/14/18 08:20 Lab Results 03/14/18 03/14/18 03/14/18 Range/Units 08:20 08:20 08:20 WBC 6.9 (4.5-11.0) X10^3/uL RBC 3.85 L (4.5-5.9) X10^6/uL Hgb 13.1 L (13.5-17.5) g/dL Hct 38.5 L (41-53) % MCV 100.1 H (80-100) fL MCH 34.1 H (26-34) PG MCHC 34.0 (30-36) % RDW 13.7 (11.6-14.8) % Plt Count 224 (150-400) X10^3/uL Neut % (Auto) 68.2 (50-75) % Lymph % (Auto) 14.5 L (25-40) % [place] % (Auto) 10.4 (3-14) % Eos % (Auto) 5.7 H (2-4) % Baso % (Auto) 1.2 (0-2) % Neut # (Auto) 4700 (3587-6857) /uL PT 13.8 H (10.1-12.7) SECONDS INR 1.3 (0.9-1.3) Sodium 140 (137-145) mmol/L Potassium 4.7 (3.4-5.1) mmol/L Chloride 101 (98-107) mmol/L Carbon Dioxide 26 (22-32) mmol/L BUN 42 H (9-20) mg/dL Creatinine 2.10 H (0.66-1.25) mg/dL Estimated GFR 30.5 L (>60) mL/min BUN/Creatinine Ratio 20.0 (6-22) Glucose 108 (80-110) mg/dL Calcium 9.4 (8.4-10.2) mg/dL Total Bilirubin 1.3 (0.2-1.3) mg/dL AST 28 (17-59) IU/L ALT 22 (21-72) IU/L Alkaline Phosphatase 139 H (38-126) U/L Total Creatine Kinase 94 (55-170) U/L Troponin I 0.022 (0.01-0.034) ng/mL B-Natriuretic Peptide 247.0 H (<100) Total Protein 7.5 (6.3-8.2) g/dL Albumin 4.0 (3.5-5.0) g/dL Globulin 3.5 (1.7-4.1) g/dL Albumin/Globulin Ratio 1.1 (1.0-2.8) // Range/Units 08:20 WBC (4.5-11.0) X10^3/uL RBC (4.5-5.9) X10^6/uL Hgb (13.5-17.5) g/dL Hct (41-53) % MCV (80-100) fL MCH (26-34) PG MCHC (30-36) % RDW (11.6-14.8) % Plt Count (150-400) X10^3/uL Neut % (Auto) (50-75) % Lymph % (Auto) (25-40) % [place] % (Auto) (3-14) % Eos % (Auto) (2-4) % Baso % (Auto) (0-2) % Neut # (Auto) (6920-6021) /uL PT (10.1-12.7) SECONDS INR (0.9-1.3) Sodium (137-145) mmol/L Potassium (3.4-5.1) mmol/L Chloride (98-107) mmol/L Carbon Dioxide (22-32) mmol/L BUN (9-20) mg/dL Creatinine (0.66-1.25) mg/dL Estimated GFR (>60) mL/min BUN/Creatinine Ratio (6-22) Glucose (80-110) mg/dL Calcium (8.4-10.2) mg/dL Total Bilirubin (0.2-1.3) mg/dL AST (17-59) IU/L ALT (21-72) IU/L Alkaline Phosphatase (38-126) U/L Total Creatine Kinase (55-170) U/L Troponin I (0.01-0.034) ng/mL B-Natriuretic Peptide Cancelled (<100) Total Protein (6.3-8.2) g/dL Albumin (3.5-5.0) g/dL Globulin (1.7-4.1) g/dL Albumin/Globulin Ratio (1.0-2.8) Imaging Data CT scan - head: Radiologist's impression: IMPRESSION: 1. No acute intracranial abnormalities. 2. 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 3. Mild periventricular white matter chronic small vessel ischemic change. Chest x-ray: Radiologist's impression: PROCEDURE: XR CHEST 1V INDICATIONS: chest pain TECHNIQUE: One view of the chest was acquired. COMPARISON: [facility], , CHEST 2 VIEW, 11/23/2016, 8:05. FINDINGS: Surgical changes and devices: Linear area of high attenuation within the right upper quadrant of the midportion of the abdomen probably is related to prior cholecystectomy.. Lungs and pleura: Diffuse reticulonodular interstitial prominence is identified predominantly seen within the lung apices and the lung bases. There is relative sparing within the perihilar regions. No lobar consolidation, large effusion, or pneumothorax is evident. Mediastinum: Mediastinal contours appear normal. Heart size is normal. Bones and chest wall: No suspicious bony lesions. Degenerative changes of the spine and shoulders are not adequately evaluated. Overlying soft tissues appear unremarkable. IMPRESSION: Chronic interstitial lung changes appear to be similar to the prior study. The possibility of superimposed pulmonary edema or atypical infection cannot be excluded. Venous US: Radiologist's impression: IMPRESSION: No DVT in lower extremities bilaterally. ECG Data Attestation: I personally reviewed and interpreted this ECG as follows: Prior ECG tracings: available for review Interpretation: EKG 1.: Sinus rhythm with left bundle branch no ST changes, some artifact noted similar to previous EKG 2. Sinus rhythm rate 58 no changes from prior MDM Narrative Medical decision making narrative: Oxygen drops down to 87% with exertion. He feels very unsteady and becomes dyspneic. Dopplers are negative. GFR is too low for CT for PE. However based on patient's symptoms of shortness of breath with exertion and x-ray does show pulmonary edema on this is more likely CHF. Amantadine can cause CHF. He is requiring oxygen. Initially he was given 1 L of IV fluids for syncopal episodes, however prior to the 1 L he was satting 88% on room air. He has urinated a couple of times. He does not appear to be in any more respiratory distress. He is given a dose of Lasix. His states that he took his water pill already this morning. Based on history and symptoms this patient seems to be more of CHF rather than PE. No sign of infection. Discharge Plan Departure Patient Disposition: Admitted As Inpatient Clinical Impression: Acute respiratory failure with hypoxia, CHF (congestive heart failure) Discharge Date/Time: 03/14/18 13:41 Interventions: ED Discharge Assessment Last Done: 03/14/18 13:23 Admit Date/Time: 03/14/18 13:40 Admit Provider: Olayinka Khalil
[2018-03-14 08:39] LABS: Add Manual Diff / Slide Review NO; Basophils Percent Auto 1.2 % (0-2); Eosinophils Percent Auto 5.7 % (2-4); Hematocrit 38.5 % (41-53); Hemoglobin 13.1 g/dL (13.5-17.5); Lymphocytes Percent Auto 14.5 % (25-40); Mean Corpuscular Hemoglobin 34.1 PG (26-34); Mean Corpuscular Volume 100.1 fL (80-100); Monocytes Percent Auto 10.4 % (3-14); Neutrophils Absolute Auto 4700 /uL (3000-5900); Neutrophils Percent Auto 68.2 % (50-75); Platelet Count 224 X10^3/uL (150-400); Red Blood Cell Count 3.85 X10^6/uL (4.5-5.9); Red Cell Distribution Width 13.7 % (11.6-14.8); White Blood Cell Count 6.9 X10^3/uL (4.5-11.0)
[2018-03-14] MEDS: SODIUM CHLORIDE 0.9% 1,000 ML 1000 ML IV (08:40)
[2018-03-14 08:41] LABS: INR 1.3 (0.9-1.3); Prothrombin Time 13.8 SECONDS (10.1-12.7)
[2018-03-14 08:43] LABS: Alanine Aminotransferase 22 IU/L (21-72); Albumin Globulin Ratio 1.1 (1.0-2.8); Alkaline Phosphatase 139 U/L (38-126); Aspartate Aminotransferase 28 IU/L (17-59); Bilirubin Total 1.3 mg/dL (0.2-1.3); Blood Urea Nitrogen 42 mg/dL (9-20); Calcium 9.4 mg/dL (8.4-10.2); Carbon Dioxide 26 mmol/L (22-32); Chloride 101 mmol/L (98-107); Creatine Kinase 94 U/L (55-170); Estimated Glomerular Filt Rate 30.5 mL/min (>60); Globulin 3.5 g/dL (1.7-4.1); Glucose 108 mg/dL (80-110); HEMOLYSIS < 15 (0-50); Potassium 4.7 mmol/L (3.4-5.1); Sodium 140 mmol/L (137-145); Total Protein 7.5 g/dL (6.3-8.2)
[2018-03-14 08:55] LABS: Troponin I 0.022 ng/mL (0.01-0.034)
--- NOTE | 2018-03-14 10:05 | DI.US.S_ITS ---
PROCEDURE: US PERIPH VENOUS LOW EXTREM BI INDICATIONS: hypoxia TECHNIQUE: Real-time imaging, as well as color and pulse Doppler interrogation, were performed of the deep veins of both legs from the inguinal ligament to the popliteal fossa. COMPARISON: [facility], , PVE UNILATERAL LEFT, 08/22/2011, 9:26. FINDINGS: The deep veins are normally compressible, and free of intraluminal thrombus. Color and pulse Doppler demonstrate normal phasic intravascular flow. There is normal augmentation response to distal compression maneuver. IMPRESSION: No DVT in lower extremities bilaterally. Dictated by: Jesús Bartholomew M.D. on 03/14/2018 at 11:08 Approved by: Jesús Bartholomew M.D. on 03/14/2018 at 11:11
--- NOTE | 2018-03-14 10:11 | PC.NURSE ---
Patient was able to get out of bed and walk by himself with standby assist and a walker. He became very weak in his legs and Short of breath after taking a couple steps out of his room. His O2 dropped to 83% RA and he asked for the walker that he had originally refused. Put patient on 2L O2 in his room.
[2018-03-14] MEDS: FUROSEMIDE 40 MG/4 ML VIAL IV ×3 (11:20→22:08)
--- NOTE | 2018-03-14 14:11 | P.HP_ITS ---
History of Present Illness Date Patient Seen: 03/14/18 Time Patient Seen: 14:05 Chief complaint: Syncope / GLF Narrative: 82-year-old male presents with increasing shortness of breath over the past several days and an episode today where he lost consciousness pop probable syncopal episode. He does have some underlying pulmonary fibrosis recently saw the applied researcher and noted that he has been having increasing dyspnea on exertion over the past several days to a few weeks. Today while at a coffee shop he had upped had an episode where he was going to sit down and passed out and lost consciousness for maybe 20 sec he thinks. No associated chest pain with that. No prior history of heart failure Patient History Medical History Carotid artery disease (Acute) Coronary artery disease (Acute) GERD (gastroesophageal reflux disease) (Acute) Hypertension (Acute) Pulmonary fibrosis (Chronic) Back pain (Acute) Concussion (Acute) HBP (high blood pressure) (Acute) Neck pain (Acute) Parkinsons (Acute) TIA (transient ischemic attack) (Acute) Surgical History History of tonsillectomy Status post appendectomy Status post cholecystectomy Family & Social History Tobacco & Substance use: Smoking Status Former smoker alcohol intake frequency 0-2 drinks per day Substance Use Type does not use Meds Home Medications Medication Instructions Recorded Confirmed Type MULTIVITAMIN (Multivitamin 1 cap PO EVERY DAY #0 02/11/10 History -) clobetasol-emollient PRN #0 12/20/16 History fluticasone [Flonase Allergy BID #0 12/20/16 History Relief] amantadine HCl 100 mg PO BID #180 cap 12/20/17 Rx Allergies Allergy/AdvReac Type Severity Reaction Status Date / Time INGREDIENT: NDA - NO KNOWN Allergy Unknown Uncoded 12/26/17 12:03 DRUG ALLERGIES Review of Systems Review of Systems All systems reviewed & are unremarkable except as noted in HPI and below Exam Vital Signs (past 8 hours): - 03/14/18 07:56 03/14/18 09:02 03/14/18 10:09 Temperature 97.7 F Pulse Rate 73 63 60 Respiratory Rate 20 18 18 Blood Pressure 154/81 H Blood Pressure [Left Arm] 144/70 H 136/69 H Pulse Oximetry 88 L 100 100 03/14/18 10:37 03/14/18 11:06 03/14/18 12:48 Temperature Pulse Rate 58 L 73 59 L Respiratory Rate 21 16 22 Blood Pressure Blood Pressure [Left Arm] 160/74 H 146/82 H 149/67 H Pulse Oximetry 100 93 99 Oxygen Delivery Method Room Air Oxygen Flow Rate 2 Narrative Exam Narrative: Elderly male awake alert gives good history Oropharynx clear Neck supple Lungs crackles at least alf up Heart regular rhythm Abdomen soft and nontender thin Lower extremities trace edema Skin warm and dry Neuro exam no focal deficits he does have underlying Parkinson's Objective Labs Result Diagrams: 03/14/18 08:20 03/14/18 08:20 Labs: Laboratory Results - last 24 hr 03/14/18 03/14/18 03/14/18 08:20 08:20 08:20 WBC 6.9 RBC 3.85 L Hgb 13.1 L Hct 38.5 L MCV 100.1 H MCH 34.1 H MCHC 34.0 RDW 13.7 Plt Count 224 Neut % (Auto) 68.2 Lymph % (Auto) 14.5 L [place] % (Auto) 10.4 Eos % (Auto) 5.7 H Baso % (Auto) 1.2 Neut # (Auto) 4700 PT 13.8 H INR 1.3 Sodium 140 Potassium 4.7 Chloride 101 Carbon Dioxide 26 BUN 42 H Creatinine 2.10 H Estimated GFR 30.5 L BUN/Creatinine Ratio 20.0 Glucose 108 Calcium 9.4 Total Bilirubin 1.3 AST 28 ALT 22 Alkaline Phosphatase 139 H Total Creatine Kinase 94 Troponin I 0.022 B-Natriuretic Peptide 247.0 H Total Protein 7.5 Albumin 4.0 Globulin 3.5 Albumin/Globulin Ratio 1.1 03/14/18 08:20 WBC RBC Hgb Hct MCV MCH MCHC RDW Plt Count Neut % (Auto) Lymph % (Auto) [place] % (Auto) Eos % (Auto) Baso % (Auto) Neut # (Auto) PT INR Sodium Potassium Chloride Carbon Dioxide BUN Creatinine Estimated GFR BUN/Creatinine Ratio Glucose Calcium Total Bilirubin AST ALT Alkaline Phosphatase Total Creatine Kinase Troponin I B-Natriuretic Peptide Cancelled Total Protein Albumin Globulin Albumin/Globulin Ratio Assessment & Plan Plan: Assessment/Plan Narrative: One. Acute heart failure exacerbation. Echo to be done to determine type. Elevated BNP and pulmonary edema on x-ray with a room air oxygen saturation about 85%. The plan will be for diuresis with IV Lasix continuous cardiac monitoring check potassium magnesium. 2. Syncope plan to check continuous telemetry 3. Parkinson's could be contributing to this syncopal episode with some autonomic insufficiency 4. Chronic kidney disease stage 3 creatinine up a little bit from his baseline today. 5. Code status patient desires to be full code
[2018-03-14] MEDS: SODIUM CHLORIDE 0.9% FLUSH 10 ML IV ×2 (17:01→22:08)
[2018-03-15] VITALS (13 sets, daily range): BP systolic 104–146; BP diastolic 61–77; PULSE 73–97; RESP 14–19; TEMP 36.3–36.9; O2SAT 91–98
[2018-03-15 06:12] LABS: Add Manual Diff / Slide Review NO; Basophils Percent Auto 1.3 % (0-2); Eosinophils Percent Auto 4.9 % (2-4); Hematocrit 39.1 % (41-53); Hemoglobin 13.6 g/dL (13.5-17.5); Lymphocytes Percent Auto 21.3 % (25-40); Mean Corpuscular HGB Conc 34.7 % (30-36); Mean Corpuscular Hemoglobin 34.3 PG (26-34); Mean Corpuscular Volume 98.9 fL (80-100); Neutrophils Absolute Auto 3600 /uL (3000-5900); Neutrophils Percent Auto 61.5 % (50-75); Platelet Count 241 X10^3/uL (150-400); Red Blood Cell Count 3.96 X10^6/uL (4.5-5.9); Red Cell Distribution Width 13.7 % (11.6-14.8); White Blood Cell Count 5.9 X10^3/uL (4.5-11.0)
[2018-03-15 06:21] LABS: Alanine Aminotransferase 28 IU/L (21-72); Albumin Globulin Ratio 1.2 (1.0-2.8); Alkaline Phosphatase 137 U/L (38-126); Aspartate Aminotransferase 28 IU/L (17-59); BUN Creatinine Ratio 25.5 (6-22); Bilirubin Total 1.2 mg/dL (0.2-1.3); Blood Urea Nitrogen 51 mg/dL (9-20); Calcium 9.4 mg/dL (8.4-10.2); Carbon Dioxide 25 mmol/L (22-32); Chloride 99 mmol/L (98-107); Estimated Glomerular Filt Rate 32.3 mL/min (>60); Globulin 3.3 g/dL (1.7-4.1); Glucose 116 mg/dL (80-110); HEMOLYSIS < 15 (0-50); Potassium 4.2 mmol/L (3.4-5.1); Sodium 141 mmol/L (137-145); Total Protein 7.3 g/dL (6.3-8.2)
[2018-03-15] MEDS: POTASSIUM CHLORIDE 20 MEQ TAB PO ×2 (09:00→17:24)
[2018-03-15] MEDS: SODIUM CHLORIDE 0.9% FLUSH 10 ML IV ×3 (09:00→19:29)
--- NOTE | 2018-03-15 10:52 | PC.NURSE ---
PT DENIES DIZZINESS BUT PER PT HAS EXPRESSED TO HER THAT HE FEELS DIZZY AND HAS INCREASED SOB WITH EXERTION DURING TOILETING.
--- NOTE | 2018-03-15 11:20 | PM.PN.1 ---
Subjective Date Patient Seen: 03/15/18 Time Patient Seen: 11:20 Interval history: Still feeling short of breath Exam Vital Signs (past 8 hours): - 03/15/18 04:30 03/15/18 07:15 03/15/18 07:45 Temperature 98.4 F 97.4 F L Pulse Rate 75 73 Respiratory Rate 16 14 Blood Pressure 130/75 H 117/68 Pulse Oximetry 95 97 95 Oxygen Delivery Method Nasal Cannula Oxygen Flow Rate 2 Narrative Exam Narrative: Resting comfortably he did have a good diuresis he had 3000 cc out more than in O2 sat 95% on 2 L nasal cannula Neck no JVD Lungs basilar crackles dry Heart regular rhythm Abdomen soft nontender Lower extremities no edema Neuro exam unremarkable Skin warm and dry Objective Labs Result Diagrams: 03/15/18 06:00 03/15/18 06:00 Labs: Laboratory Results - last 24 hr 03/15/18 03/15/18 06:00 06:00 WBC 5.9 RBC 3.96 L Hgb 13.6 Hct 39.1 L MCV 98.9 MCH 34.3 H MCHC 34.7 RDW 13.7 Plt Count 241 Neut % (Auto) 61.5 Lymph % (Auto) 21.3 L [place] % (Auto) 11.0 Eos % (Auto) 4.9 H Baso % (Auto) 1.3 Neut # (Auto) 3600 Sodium 141 Potassium 4.2 Chloride 99 Carbon Dioxide 25 BUN 51 H Creatinine 2.00 H Estimated GFR 32.3 L BUN/Creatinine Ratio 25.5 H Glucose 116 H Calcium 9.4 Total Bilirubin 1.2 AST 28 ALT 28 Alkaline Phosphatase 137 H Total Protein 7.3 Albumin 4.0 Globulin 3.3 Albumin/Globulin Ratio 1.2 Assessment & Plan Plan: Assessment/Plan Narrative: One. Acute systolic heart failure exacerbation echo does show decreased ejection fraction also showing decreased RV function dilated RV consistent with chronic pulmonary disease with his pulmonary fibrosis probably has chronic hypoxemia. The echo reading was for dilated RV and decreased RV function they brought up the question of pulmonary embolism however I think that his symptoms and the findings on the echo or more explained by chronic hypoxemia from pulmonary fibrosis. He had a ultrasound Doppler of the lower extremities looking for a clot source that was negative his creatinine is really too high to do a CT angio on. And his baseline x-ray has enough abnormality that a V/Q scan probably would not be worth it. He did have elevated BNP and pulmonary edema on his x-ray. The patient has been getting diuresis had a good diuresis yesterday. Creatinine has remained stable. Plan to continue diuresis today 2 more doses of Lasix some supplemental potassium also. His room air saturation 85%. I think some of his hypoxemia is due to his chronic pulmonary fibrosis. He may need home oxygen when he leaves the hospital. 2. Syncopal episode no signs of ongoing arrhythmia telemetry will continue troponins were unremarkable 3. Parkinson's disease possibly contributing to the syncope with autonomic insufficiency 4. Chronic kidney disease stage 3 has remained stable 5. Code status full code Quality VTE Deep Vein Thrombosis/Pulmonary Embolism Present on Admission: No
[2018-03-15] MEDS: FUROSEMIDE 100 MG/10 ML VIAL 80 MG IV ×2 (12:24→19:28)
--- NOTE | 2018-03-15 16:02 | CM.DANOTE ---
DCP: assessment: case received, EMR reviewed and met at length with pt and his Heather: primary phone: h [phone]. She has a cell but uses it mostly for family texting. (cell: [phone]) Introduced self and role. DCP template completed with information currently available. Pt is an 82 year old male who admitted yesterday afternoon to care of hospitalist team. INPT admission order, confirmed by UR RN Ronal. Payer: Medicare and [facility] PCP: Dr. Sofia Celestin. Pt carries diagnoses of [place] and pulmonary fibrosis. Currently being treated for acute CHF. OT and PT orders are obtained now from Dr. Khalil and evals are pending. Heather requesting options at d/c as she notes her 's health has been deteriorating. He is not on hoe 02, Dr. Khalil is considering o2 at d/c. Discussed snf, HH and outpt programs and gave [employer] 2018/[place] booklet to Heather. Consideration given to short snf stay>home/HH and with goal of return to outpt programs. Pt at this point wishes home and right to outpt but he is willing to continue discussion with his , the physician and the therapy team once they see him. CM/DCP team to follow and continue the discussion... P: to be determined.
[2018-03-15 18:02] LABS: HCO3 ABG 25 mmol/L (23-27); Oxygen Saturation ABG 98 % (95-100); PCO2 ABG 36.3 mmHg (35-45); PO2 ABG 93 mmHg (80-105); TCO2 ABG 26 mmol/L (23-27); pH ABG 7.44 (7.35-7.45)
[2018-03-15 18:05] LABS: Fractionated Inspired Oxygen 28
--- NOTE | 2018-03-15 21:27 | PC.NURSE ---
Addendum entered by Bethany Franco R.N. 03/15/18 22:52: pt c/o heart burn, states he usually takes prevacid Q am and tagament Q pm PRN. Per Dr. Maldonado, pa to restart meds. we do not have either med on formulary. per [facility], 40mg PO protontix is equivalent to prevacid. we do not have any equivalents to tagamet. will need to have MD reassess med options in the morning. Original Note: SHIFT NOTE pt verbalizes constant chest pressure but denies chest pain. pt also verbalizes slight increase of pressure and SOB with activity. pt encouraged to take deep breaths through his nose to help with oxygenation and to continue to call staff for assist when getting out of bed.
[2018-03-15] MEDS: PANTOPRAZOLE 40 MG TABLET PO (22:41)
[2018-03-16] VITALS (21 sets, daily range): BP systolic 70–157; BP diastolic 42–70; PULSE 67–109; RESP 16–18; TEMP 36.3–36.7; O2SAT 90–98
--- NOTE | 2018-03-16 06:28 | PM.PN.1 ---
Subjective Date Patient Seen: 03/16/18 Time Patient Seen: 05:50 Interval history: The patient states he is feeling better, though still feels too weak to be able to get safely to the bathroom. Exam Vital Signs (past 8 hours): - 03/15/18 23:00 03/15/18 23:55 03/16/18 01:53 Temperature 97.7 F Pulse Rate 97 H Respiratory Rate 19 Blood Pressure 146/77 H Pulse Oximetry 93 93 93 03/16/18 04:00 03/16/18 05:33 Temperature 97.9 F Pulse Rate 84 Respiratory Rate 18 Blood Pressure 106/63 116/70 Pulse Oximetry 98 Oxygen Delivery Method Nasal Cannula Oxygen Flow Rate 2 Narrative Exam Narrative: Resting comfortably appears weak Neck no JVD Lungs basilar crackles dry Heart regular rhythm Abdomen soft nontender Lower extremities no edema Neuro exam unremarkable Skin warm and dry Objective Labs Result Diagrams: 03/15/18 06:00 03/15/18 06:00 Labs: Laboratory Results - last 24 hr 03/14/18 14:24 ABG pH 7.44 ABG pCO2 36.3 ABG pO2 93 ABG HCO3 25 ABG Total CO2 26 ABG O2 Saturation 98 ABG Base Excess 0.0 FiO2 28 Assessment & Plan Plan: Assessment/Plan Narrative: 1. Acute systolic heart failure exacerbation. Echo does show decreased ejection fraction 50% also showing decreased RV function dilated RV consistent with chronic pulmonary disease with his pulmonary fibrosis probably has chronic hypoxemia. The echo reading was for dilated RV and decreased RV function they brought up the question of pulmonary embolism however I think that his symptoms and the findings on the echo or more explained by chronic hypoxemia from pulmonary fibrosis. He had a ultrasound Doppler of the lower extremities looking for a clot source that was negative his creatinine is too high to do a CT angio. And his baseline x-ray has enough abnormality that a V/Q scan probably would not be worth it. He did have elevated BNP and pulmonary edema on his x-ray. The patient has been getting diuresis had a good diuresis yesterday. Creatinine has remained stable. Plan to reduce furosemide to 40 mg daily with supplemental potassium and check BMP today. His room air saturation 85% with contributing hypoxemia is due to his chronic pulmonary fibrosis. He may need home oxygen when he leaves the hospital. 2. Syncopal episode. No signs of ongoing arrhythmia telemetry will continue. Troponins were negative. 3. Parkinson's disease possibly contributing to the syncope with autonomic insufficiency. 4. Chronic kidney disease stage 3. Stable. 5. Code statusL Full code. 6. Disposition: Consult physical therapy due to weakness. He will require an additional day in the hospital to stabilize medically. Hopeful return home with his tomorrow. Quality VTE Deep Vein Thrombosis/Pulmonary Embolism Present on Admission: No
[2018-03-16] MEDS: PANTOPRAZOLE 40 MG TABLET PO (06:50)
[2018-03-16 07:20] LABS: BUN Creatinine Ratio 26.3 (6-22); Blood Urea Nitrogen 63 mg/dL (9-20); Calcium 9.5 mg/dL (8.4-10.2); Carbon Dioxide 30 mmol/L (22-32); Chloride 98 mmol/L (98-107); Estimated Glomerular Filt Rate 26.2 mL/min (>60); Glucose 134 mg/dL (80-110); HEMOLYSIS 24 (0-50); Potassium 4.4 mmol/L (3.4-5.1); Sodium 140 mmol/L (137-145)
[2018-03-16] MEDS: FUROSEMIDE 40 MG TABLET PO (09:29)
[2018-03-16] MEDS: POTASSIUM CHLORIDE 20 MEQ TAB PO (09:30)
[2018-03-16] MEDS: METOPROLOL 25 MG TABLET PO ×2 (09:30→20:14)
[2018-03-16] MEDS: SODIUM CHLORIDE 0.9% FLUSH 10 ML IV ×2 (09:31→20:14)
--- NOTE | 2018-03-16 10:30 | PT.IIE ---
Surgical History History of tonsillectomy Status post appendectomy Status post cholecystectomy Medical History (Last Updated 03/14/18 @ 14:07 by Olayinka Khalil MD) Carotid artery disease (Acute) Coronary artery disease (Acute) GERD (gastroesophageal reflux disease) (Acute) Hypertension (Acute) Pulmonary fibrosis (Chronic) Back pain (Acute) Concussion (Acute) HBP (high blood pressure) (Acute) Neck pain (Acute) Parkinsons (Acute) TIA (transient ischemic attack) (Acute) Physical Therapy Inpatient Evaluation/Re-Eval M1 PT/OT-IP Prior Functional Status Start: 03/16/18 10:31 Freq: Status: Active Protocol: Document 03/16/18 10:00 [facility] (Rec: 03/16/18 10:47 [facility] [id number]) Medical Review Prior Functional Status Medical History Reviewed Yes Communication WNL Mobility and Gait Indep. community ambulator without device. Activities of Daily Living and IADL's Indep. I/ADLs, including driving. Social History Household Members spouse Living Arrangements House Number of Floors (Floors) Two Floors Number of Stairs To Enter/Railing? no steps to enter; enters @ daylight basement, bathroom and bed available down stairs, his master bedroom and all other accommodations on 2nd level which has ~15 steps with unilateral rail Home Environment Standard Height Toilet Walk in Shower Home Equipment Shower Seat without Backrest M2 PT-IP Current Condition Start: 03/16/18 10:31 Freq: Status: Active Protocol: Document 03/16/18 10:00 [facility] (Rec: 03/16/18 10:47 [facility] [id number]) Physical Therapy Current Condition Current Condition Evaluation Date 03/16/18 Treatment Diagnosis syncope, GLF, impaired activity tolerance Onset Date 03/14/18 Precautions Other Precautions monitor BP M3 PT-IP Subjective Start: 03/16/18 10:31 Freq: Status: Active Protocol: Document 03/16/18 10:00 [facility] (Rec: 03/16/18 10:47 [facility] [id number]) Subjective Physical Therapy Visit Type Type Initial Evaluation Visit Start Time 09:30 Visit Stop Time 10:00 Total Visit Minutes 30 Notes , Heather, in room during session. 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 M4 PT-IP Mobility and Gait Start: 03/16/18 10:31 Freq: Status: Active Protocol: Document 03/16/18 10:00 [facility] (Rec: 03/16/18 10:47 [facility] [id number]) PT-Bed Mobility Assessment Supine to Sit Supine to Sit Independent Scooting Scooting to Edge of Bed Independent PT-Transfer Assessment Sit to and From Stand Sit to and from Stand Standby Assistance Equipment Transfer Assistive Device Front Wheeled Walker Transfers Transfer Destination Chair Transfer Technique Stand Step Pivot Transfer Ability Level of Assist Contact Guard Assistance Comments Mobility Comments Initial BP 109/64; pt with lightheadedness, BP down to 88 /59. Back to 106/62 seated. Then again, dropping to 76/42 upon standing with c/o dizziness. Sitting 106/67 Gait Assessment Comments Gait Comments not assessed secondary to BP PT-Balance Assessment Sitting Balance and Reactions Static Sitting Balance Ability Good Dynamic Sitting Balance Ability Good Standing Balance and Reactions Static Standing Balance Ability Good Dynamic Standing Balance Ability Good Device Used FWW M5 PT-IP Objective Assessments Start: 03/16/18 10:31 Freq: Status: Active Protocol: Document 03/16/18 10:00 [facility] (Rec: 03/16/18 10:47 [facility] [id number]) Orientation Orientation/Cognition Level of Alertness Alert Strength Lower Extremity Strength Hip 3+/5 bilaterally Ankle PF 3+/5, DF 4+/5 bilaterally Coordination Assessment Gross Coordination Gross Coordination WNL Sensation Assessment Sensation Gross Sensation Right LE Impaired Left LE Impaired Sensation Description Tingling Burning Comments Sensation Comments pt admits to bilateral buring , tingling of the plantar surfaces of feet, he reports this is his baseline. Other Assessments Other Other Assessments Resting UE tremor, forward flexed posture in sitting and standing. M6 PT-IP Treatment Start: 03/16/18 10:31 Freq: Status: Active Protocol: Document 03/16/18 10:00 [facility] (Rec: 03/16/18 10:47 [facility] [id number]) Physical Therapy Treatment Education Education Provided Precautions Safety Other Treatments Other Treatment Performed chair alarm on, call light in reach. M7 PT-IP Assessment and Plan Start: 03/16/18 10:31 Freq: Status: Active Protocol: Document 03/16/18 10:00 [facility] (Rec: 03/16/18 10:47 [facility] [id number]) PT Summary Assessment and Plan Potential Rehabilitation Potential Good Status of Condition at Evaluation Unstable Summary Impairments Strength Balance Transfers Gait Activity Tolerance Assessment Summary Pt with orthostatic hypotension noted from sit to stand during this session, therefore further treatment was not performed given how much his BP dropped. Pt using supplemental O2, which he does not use at home. Pt has 15 steps to get to the main living area inside the home, but no steps to enter/exit into the basement level which he has a bed and bathroom. Pt is not safe to return home at this time, not safe to mobilize further until his BP stabilizes and not having symptoms of hypotension. Pt would like to d/c home when safe, however, if he is unable to mobilize without assistance and manage stairs, he would likely benefit from SNF rehab in order to decrease the burden of care, improve safety, mobility, and strength. High complexity evaluation due to symptomatic orthostatic hypotension and medical complexities. Goals Bed Mobility Goal Independent Transfer Goal Independent Gait Goal Independent Front Wheel Walker Gait Distance 300 Other Goals up/down 15 step and unilateral rail, CGA. Days to Meet Goals 3 Frequency of Treatment Frequency Of Treatment Twice a Day Treatment Plan Physical Therapy Treatment Plan Bed Mobility Training Transfer Training Gait Training Therapeutic Exercise Balance Retraining Discharge Planning Neuromuscular Re-ed Other Recommendations and Next Treatment monitor BP, prog. gait, stairs Focus prior to d/c. Recommendations To Nursing Amount of Assist Needed 1 Person Assist Discharge Recommendations PT Discharge Recommendations Home with 24/7 Assist Home Health SNF Rehab Other Discharge Recommendations home with 24/7 assist and vs. SNF rehab.
--- NOTE | 2018-03-16 11:14 | CM.DPC ---
Pt evaluated today and recommend SNF vs 24 hour help at home. Met with patient in his room. had stepped out. Discussed safe d/c plan. He agrees that he didnt do great with PT today because his bp dropped and he felt dizzy/weak. Discussed possible need for SNF at discharge. Patient prefers home but willing to consider SNF. He has many steps inside the house to get from down stairs to up. We agreed to discuss further tomorrow after he has worked with PT a few times. Plan: SNF vs Home with HH and addition al help
--- NOTE | 2018-03-16 14:30 | PT.IPTN ---
Current Diagnoses Heart failure, unspecified (03/14/18) Physical Therapy Treatment Note M2 PT-IP Current Condition Start: 03/16/18 10:31 Freq: Status: Active Protocol: Document 03/16/18 14:30 [facility] (Rec: 03/16/18 15:11 [facility] [id number]) Physical Therapy Current Condition Current Condition Evaluation Date 03/16/18 Treatment Diagnosis syncope, GLF, impaired activity tolerance Onset Date 03/14/18 Precautions Other Precautions monitor BP M3 PT-IP Subjective Start: 03/16/18 10:31 Freq: Status: Active Protocol: Document 03/16/18 14:30 [facility] (Rec: 03/16/18 15:11 [facility] [id number]) Subjective Physical Therapy Visit Type Type Treatment Note Visit Start Time 14:00 Visit Stop Time 14:30 Total Visit Minutes 30 Notes , Heather, in room during session. Physical Therapy Visit Comments Patient Comments Pt c/o SOB, no dizziness this session. M4 PT-IP Mobility and Gait Start: 03/16/18 10:31 Freq: Status: Active Protocol: Document 03/16/18 14:30 [facility] (Rec: 03/16/18 15:11 [facility] [id number]) PT-Bed Mobility Assessment Supine to Sit Supine to Sit Independent Scooting Scooting to Edge of Bed Independent PT-Transfer Assessment Sit to and From Stand Sit to and from Stand Standby Assistance Equipment Transfer Assistive Device Front Wheeled Walker Transfers Transfer Destination Bed Toilet Transfer Technique Stand Step Pivot Transfer Ability Level of Assist Contact Guard Assistance Comments Mobility Comments BP supine 109/65. Standing 70/ 53, no dizziness. Supine after gait 125/70. Gait Assessment Gait Gait Assistance Required: Contact Guard Assist Distance (Feet) (feet) 50 Assistive Devices Assistive Device Front Wheeled Walker Gait Deviations General Gait Pattern Decreased Stride Length Flexed Trunk Factors Limiting Gait Function Factors Limiting Gait Function Decreased Activity Tolerance Comments Gait Comments Pt with SOB, O2 saturation to 89% on 2-L O2, recovery in 3 min to 94% on 2-L O2. PT-Balance Assessment Sitting Balance and Reactions Static Sitting Balance Ability Good Dynamic Sitting Balance Ability Good Standing Balance and Reactions Static Standing Balance Ability Good Dynamic Standing Balance Ability Good Device Used FWW M5 PT-IP Objective Assessments Start: 03/16/18 10:31 Freq: Status: Active Protocol: Document 03/16/18 10:00 [facility] (Rec: 03/16/18 10:47 [facility] [id number]) Orientation Orientation/Cognition Level of Alertness Alert Strength Lower Extremity Strength Hip 3+/5 bilaterally Ankle PF 3+/5, DF 4+/5 bilaterally Coordination Assessment Gross Coordination Gross Coordination WNL Sensation Assessment Sensation Gross Sensation Right LE Impaired Left LE Impaired Sensation Description Tingling Burning Comments Sensation Comments pt admits to bilateral buring , tingling of the plantar surfaces of feet, he reports this is his baseline. Other Assessments Other Other Assessments Resting UE tremor, forward flexed posture in sitting and standing. M6 PT-IP Treatment Start: 03/16/18 10:31 Freq: Status: Active Protocol: Document 03/16/18 10:00 [facility] (Rec: 03/16/18 10:47 [facility] [id number]) Physical Therapy Treatment Education Education Provided Precautions Safety Other Treatments Other Treatment Performed chair alarm on, call light in reach. M7 PT-IP Assessment and Plan Start: 03/16/18 10:31 Freq: Status: Active Protocol: Document 03/16/18 14:30 [facility] (Rec: 03/16/18 15:11 [facility] [id number]) PT Summary Assessment and Plan Summary Progress Towards Goals Slow Progress due to Medical Issues Slow Progress due to Activity Tolerance Assessment Summary Pt able to ambulate this session in his room, ~50 ft with CGA and FWW. Pt using FWW for balance and energy conservation, and likely would benefit from the use of a walker at home. Pt's BP showed a significant drop upon standing, but no c/o dizziness or lightheadedness. He did c/ o SOB with gait this session. Pt is well below his functional baseline, and is not safe to return home at this point. Goals Bed Mobility Goal Independent Transfer Goal Independent Gait Goal Independent Front Wheel Walker Gait Distance 300 Other Goals up/down 15 step and unilateral rail, CGA. Days to Meet Goals 3 Frequency of Treatment Frequency Of Treatment Twice a Day Treatment Plan Other Recommendations and Next Treatment monitor BP, gait, stairs prior Focus to d/c.
--- NOTE | 2018-03-16 16:16 | OT.IP.TRT ---
Current Diagnoses Heart failure, unspecified (03/14/18) Occupational Therapy Treatment Note M3 OT- IP Subjective and Pain Start: 03/16/18 16:14 Freq: Status: Active Protocol: Document 03/16/18 16:14 [facility] (Rec: 03/16/18 16:15 [facility] [id number]) OT- Subjective Occupational Therapy Visit Type Type Patient Unavailable Notes Pt having orthostatic hypotension today, therefore to check on pt tomorrow for OT eval.
[2018-03-16] MEDS: ASPIRIN EC 81 MG TABLET PO (17:34)
[2018-03-16] MEDS: ATORVASTATIN 20 MG TABLET 40 MG PO (20:13)
[2018-03-17] VITALS (14 sets, daily range): BP systolic 64–135; BP diastolic 49–74; PULSE 67–95; RESP 16–19; TEMP 36.3–36.8; O2SAT 92–97
[2018-03-17] MEDS: PANTOPRAZOLE 40 MG TABLET PO (05:51)
[2018-03-17] MEDS: METOPROLOL 25 MG TABLET PO ×2 (09:16→22:03)
[2018-03-17] MEDS: SODIUM CHLORIDE 0.9% FLUSH 10 ML IV ×2 (09:16→22:04)
--- NOTE | 2018-03-17 09:48 | P.PN_ITS ---
Subjective Date Patient Seen: 03/17/18 Time Patient Seen: 09:15 Interval history: The patient reports feeling better though still lightheaded and weak with standing and dyspneic with minimal exertion. Exam Vital Signs (past 8 hours): - 03/17/18 04:00 03/17/18 07:14 03/17/18 09:11 Temperature 97.7 F 97.3 F L Pulse Rate 68 73 Respiratory Rate 18 18 Blood Pressure 107/60 102/59 L Pulse Oximetry 97 93 93 Oxygen Delivery Method Nasal Cannula Oxygen Flow Rate 0.5 Narrative Exam Narrative: General: Alert, pleasant, appears comfortable HEENT: Unremarkable Neck: Supple Lungs: Crackles 1/2 up both lung umanzor Cardiac: Regular rate and rhythm Abdomen: Soft nontender Extremities: Thin, without edema Neurologic: Right arm parkinsonian tremor, otherwise no focal deficits Objective Labs Result Diagrams: 03/15/18 06:00 03/16/18 07:00 Assessment & Plan Plan: Assessment/Plan Narrative: 1. Acute systolic heart failure exacerbation. Echo does show decreased ejection fraction 50% also showing decreased RV function dilated RV consistent with chronic pulmonary disease with his pulmonary fibrosis, and probably has chronic hypoxemia. The echo reading was for dilated RV and decreased RV function they brought up the question of pulmonary embolism however I think that his symptoms and the findings on the echo or more explained by chronic hypoxemia from pulmonary fibrosis. He had a ultrasound Doppler of the lower extremities looking for a clot source that was negative his creatinine is too high to do a CT angio. And his baseline x-ray has enough abnormality that a V/ Q scan probably would not be worth it. He did have elevated BNP and pulmonary edema on his x-ray. The patient has been getting diuresis had a good diuresis yesterday. Creatinine has remained stable. Plan to hold furosemide 40 mg daily today given his ongoing orthostasis and elevated creatinine yesterday. Recheck tomorrow. 2. Acute and probably chronic hypoxic respiratory failure due to congestive heart failure and pulmonary fibrosis. He should likely go home with chronic home oxygen. 3. Syncopal episode. No signs of ongoing arrhythmia telemetry will continue. Troponins were negative. 4. Parkinson's disease possibly contributing to the syncope with autonomic insufficiency. 5. Chronic kidney disease stage 3. Stable except elevated creatinine yesterday suggesting acute prerenal kidney injury due to over diuresis. Hold furosemide and recheck tomorrow. 6. Code statusL Full code. 7. Disposition: Continue physical therapy due to weakness. He will require an additional day in the hospital to stabilize medically. Hopeful return home with his tomorrow, but more likely [facility] anticipated. Quality VTE Deep Vein Thrombosis/Pulmonary Embolism Present on Admission: No
--- NOTE | 2018-03-17 10:51 | PC.NURSE ---
ORTHOSTATIC HYPOTENSION AND BLURRED VISION WITH STANDING NOTED DURING ASSESSMENT. DR. FIGUEROA NOTIFIED.
--- NOTE | 2018-03-17 10:59 | CM.DPC ---
Discharge plan continued: Met with
--- NOTE | 2018-03-17 11:09 | CM.DPC ---
Met with and patient to continue discharge planning. Patient continues to have orthostatic hypotension and having difficulty working with PT. We discussed that is a medical issue that we have to resolved before he could d/c home or SNF. Discussed that it would be a good idea so give info to SNF so we are prepared if that is what is needed at d/c and we can cancel if he progresses to home as a safe plan. Choice list given and they would prefer [facility]. Mary at [facility] notified of the possible referral and she is reviewing. Plan: Home with HH vs SNF when medically stable.
--- NOTE | 2018-03-17 11:34 | PT.IPTN ---
Current Diagnoses Heart failure, unspecified (03/14/18) Physical Therapy Treatment Note M2 PT-IP Current Condition Start: 03/16/18 10:31 Freq: Status: Active Protocol: Document 03/16/18 14:30 [facility] (Rec: 03/16/18 15:11 [facility] [id number]) Physical Therapy Current Condition Current Condition Evaluation Date 03/16/18 Treatment Diagnosis syncope, GLF, impaired activity tolerance Onset Date 03/14/18 Precautions Other Precautions monitor BP M3 PT-IP Subjective Start: 03/16/18 10:31 Freq: Status: Active Protocol: Document 03/17/18 11:34 [facility] (Rec: 03/17/18 12:35 [facility] [id number]) Subjective Physical Therapy Visit Type Type Patient Unavailable Notes Pt sleeping in room, his states that he is too tired to participate at this time. Pt was up to BR with nursing, and noted to have significant hypotension by RN this a.m. Will check back later this date if schedule permits.
--- NOTE | 2018-03-17 12:31 | PC.NURSE ---
PT REPORTS THE NEED TO CLEAR THROAT FREQUENTLY. PER R.T. OKAY TO GIVE FLUTTER VALVE TO HELP CLEAR SECRETIONS. FLUTTER VALVE AND INSTRUCTIONS OF USE GIVEN TO PT.
--- NOTE | 2018-03-17 15:37 | OT.IP.TRT ---
Current Diagnoses Heart failure, unspecified (03/14/18) Occupational Therapy Treatment Note M3 OT- IP Subjective and Pain Start: 03/16/18 16:14 Freq: Status: Active Protocol: Document 03/17/18 15:36 [facility] (Rec: 03/17/18 15:37 [facility] [id number]) OT- Subjective Occupational Therapy Visit Type Type Patient Unavailable Notes Pt continues to have orthostatic hypotension, therefore check on pt tomorrow again for OT eval.
--- NOTE | 2018-03-17 15:42 | PT.IPTN ---
Current Diagnoses Heart failure, unspecified (03/14/18) Physical Therapy Treatment Note M2 PT-IP Current Condition Start: 03/16/18 10:31 Freq: Status: Active Protocol: Document 03/17/18 15:42 [facility] (Rec: 03/17/18 16:50 [facility] [id number]) Physical Therapy Current Condition Current Condition Evaluation Date 03/16/18 Treatment Diagnosis syncope, GLF, impaired activity tolerance Onset Date 03/14/18 Precautions Other Precautions monitor BP M3 PT-IP Subjective Start: 03/16/18 10:31 Freq: Status: Active Protocol: Document 03/17/18 15:42 [facility] (Rec: 03/17/18 16:50 [facility] [id number]) Subjective Physical Therapy Visit Type Type Treatment Note Visit Start Time 15:12 Visit Stop Time 15:45 Total Visit Minutes 33 Notes in room during session Number of FILLETER Visits 0 Physical Therapy Visit Comments Patient Comments pt denies lightheadedness this session. Therapy Pain Assessment Pain Present Pain Present Denied Pain M4 PT-IP Mobility and Gait Start: 03/16/18 10:31 Freq: Status: Active Protocol: Document 03/17/18 15:42 [facility] (Rec: 03/17/18 16:50 [facility] [id number]) PT-Bed Mobility Assessment Supine to Sit Supine to Sit Moderate Assistance Scooting Scooting to Edge of Bed Contact Guard Assistance PT-Transfer Assessment Sit to and From Stand Sit to and from Stand Contact Guard Assistance Equipment Transfer Assistive Device Gait Belt Front Wheeled Walker Transfers Transfer Destination Chair Transfer Technique Stand Step Pivot Transfer Ability Level of Assist Contact Guard Assistance Comments Mobility Comments supine BP 124/66, sitting 89/ 50 (no c/o dizziness or lightheadedness), standing 71/ 48 (no c/o dizziness or lightheadedness), sitting after gait 107/64 (no c/o dizziness or lightheadedness) Gait Assessment Gait Gait Assistance Required: Contact Guard Assist Distance (Feet) (feet) 25 Assistive Devices Assistive Device Gait Belt Front Wheeled Walker Gait Deviations General Gait Pattern Decreased Stride Length Decreased Feet Clearance Factors Limiting Gait Function Factors Limiting Gait Function Decreased Activity Tolerance Decreased Strength Poor Balance Comments Gait Comments (no c/o dizziness or lightheadedness) M5 PT-IP Objective Assessments Start: 03/16/18 10:31 Freq: Status: Active Protocol: Document 03/16/18 10:00 [facility] (Rec: 03/16/18 10:47 [facility] [id number]) Orientation Orientation/Cognition Level of Alertness Alert Strength Lower Extremity Strength Hip 3+/5 bilaterally Ankle PF 3+/5, DF 4+/5 bilaterally Coordination Assessment Gross Coordination Gross Coordination WNL Sensation Assessment Sensation Gross Sensation Right LE Impaired Left LE Impaired Sensation Description Tingling Burning Comments Sensation Comments pt admits to bilateral buring , tingling of the plantar surfaces of feet, he reports this is his baseline. Other Assessments Other Other Assessments Resting UE tremor, forward flexed posture in sitting and standing. M6 PT-IP Treatment Start: 03/16/18 10:31 Freq: Status: Active Protocol: Document 03/17/18 15:42 [facility] (Rec: 03/17/18 16:50 [facility] [id number]) Physical Therapy Treatment Other Treatments Other Treatment Performed Standing marching, seated heel /toe taps M7 PT-IP Assessment and Plan Start: 03/16/18 10:31 Freq: Status: Active Protocol: Document 03/17/18 15:42 [facility] (Rec: 03/17/18 16:50 [facility] [id number]) PT Summary Assessment and Plan Summary Assessment Summary Pt with decreased BP with changes in position, but no c/ o dizziness or lightheadedness during session. Pt required manual assistance getting out of bed and requires a prolonged amount of time to perform daily functional tasks . Goals Bed Mobility Goal Independent Transfer Goal Independent Gait Goal Independent Front Wheel Walker Gait Distance 300 Other Goals up/down 15 step and unilateral rail, CGA. Days to Meet Goals 3 Frequency of Treatment Frequency Of Treatment Twice a Day Treatment Plan Other Recommendations and Next Treatment monitor BP, gait as tolerated. Focus Recommendations To Nursing Amount of Assist Needed 1 Person Assist Discharge Recommendations PT Discharge Recommendations SNF Rehab
[2018-03-17] MEDS: ASPIRIN EC 81 MG TABLET PO (17:17)
[2018-03-17] MEDS: ATORVASTATIN 20 MG TABLET 40 MG PO (22:03)
[2018-03-18] VITALS (15 sets, daily range): BP systolic 74–130; BP diastolic 49–75; PULSE 62–78; RESP 16–20; TEMP 36.4–36.9; O2SAT 92–98
[2018-03-18 07:03] LABS: BUN Creatinine Ratio 33.8 (6-22); Blood Urea Nitrogen 71 mg/dL (9-20); Calcium 9.3 mg/dL (8.4-10.2); Carbon Dioxide 30 mmol/L (22-32); Chloride 97 mmol/L (98-107); Estimated Glomerular Filt Rate 30.5 mL/min (>60); Glucose 104 mg/dL (80-110); HEMOLYSIS < 15 (0-50); Potassium 4.5 mmol/L (3.4-5.1); Sodium 138 mmol/L (137-145)
[2018-03-18] MEDS: PANTOPRAZOLE 40 MG TABLET PO (07:16)
[2018-03-18] MEDS: SODIUM CHLORIDE 0.9% FLUSH 10 ML IV ×2 (09:36→21:34)
--- NOTE | 2018-03-18 10:56 | CM.DPC ---
Addendum entered by Debra Nichols LPN 03/18/18 14:41: [place] back from [place] after his discussion again with pt and Heather. He reports he is keeping pt in hospital overnight and expects pt will be ready for d/c tomorrow to [facility]. Heather will go over to [facility] to tour today. Brochure provide to pt. PASRR completed and faxed to [facility] in prep for eventual admission. Original Note: DCP: case received, EMR reviewed, notified by DIEGO Browne that pt is ready for d/c to [facility] care. Called Mary/[facility] who confirmed pt was on list and accepted for admission when stable. Checked in with pt and his Heather. Both are quite concerned re the d/c today. Heather notes that every time he tries to get up his BP falls and in spite of medication changes this remains. She and pt both say they do not feel comfortable with a d/c while this is still occurring. Updated [facility] and hospitalist Dr. Maldonado. Both say that pt is stable to leave the hospital. [facility] will continue the discussion with pt and Heather. P: [facility] when stable, likely today. Will do PASRR in prep for same.
--- NOTE | 2018-03-18 11:05 | P.PN_ITS ---
Subjective Date Patient Seen: 03/18/18 Time Patient Seen: 10:58 Interval history: Patient continues to be lightheaded standing. He continues to get dyspneic wished minimal exertion but was able to tolerate sitting in the shower this morning. Exam Vital Signs (past 8 hours): - 03/18/18 04:22 03/18/18 07:25 03/18/18 09:05 Temperature 97.7 F 97.5 F L Pulse Rate 65 62 Pulse Rate [Orthostatic Sitting] 75 Pulse Rate [Orthostatic Standing] 74 Respiratory Rate 17 18 Blood Pressure 122/61 H 112/59 L Blood Pressure [Orthostatic Lying] 128/71 H Blood Pressure [Orthostatic Sitting] 107/66 Blood Pressure [Orthostatic Standing] 74/49 L Pulse Oximetry 93 94 03/18/18 09:24 03/18/18 09:36 Temperature Pulse Rate 73 Pulse Rate [Orthostatic Sitting] Pulse Rate [Orthostatic Standing] Respiratory Rate Blood Pressure 112/68 Blood Pressure [Orthostatic Lying] Blood Pressure [Orthostatic Sitting] Blood Pressure [Orthostatic Standing] Pulse Oximetry 96 Oxygen Delivery Method Nasal Cannula Oxygen Flow Rate 1 Narrative Exam Narrative: Sitting in bedside chair in no acute distress. Const General: cooperative, healthy appearing and comfortable Nutritional Appearance: average body habitus Orientation: alert, awake and oriented x3 HENMT Head: normal to inspection, normocephalic and atraumatic Eyes General: appearance normal, both eyes and all related structures Pupils: PERRL Neck Neck: normal visual inspection, trachea midline and supple Chest Chest: normal inspection of the chest Resp Effort & Inspection: normal respiratory effort and able to speak in complete sentences Auscultation: crackles and rales bilaterally at the base Cardio Rate: regular rate Heart Sounds: S1 normal, S2 normal and murmur diastolic II/ and at the left sternal border GI Inspection: normal to inspection Palpation: soft Auscultation: normal bowel sounds Other: Nontender Other: None remarkable Back/Spine/Pelvis Other: Unremarkable Skin General: no rashes or lesions noted, dry skin and warm Neuro General: alert, awake and oriented x3 Cognition: normal cognition Speech: speech normal Extrem General: normal to inspection, capillary refill normal and no pedal edema Psych Appearance: grossly normal Mental Status: mental status grossly normal Mood: congruent mood Affect: normal affect Attitude: cooperative Thought Process: normal Thought Content: normal Judgment: judgment good Objective Labs Result Diagrams: 03/15/18 06:00 03/18/18 06:30 Labs: Laboratory Results - last 24 hr 03/18/18 06:30 Sodium 138 Potassium 4.5 Chloride 97 L Carbon Dioxide 30 BUN 71 H Creatinine 2.10 H Estimated GFR 30.5 L BUN/Creatinine Ratio 33.8 H Glucose 104 Calcium 9.3 Assessment & Plan Plan: Assessment/Plan Narrative: 1. Acute systolic heart failure exacerbation. Echo does show decreased ejection fraction 50% also showing decreased RV function dilated RV consistent with chronic pulmonary disease with his pulmonary fibrosis, and probably has chronic hypoxemia. The echo reading was for dilated RV and decreased RV function they brought up the question of pulmonary embolism however I think that his symptoms and the findings on the echo or more explained by chronic hypoxemia from pulmonary fibrosis. He had a ultrasound Doppler of the lower extremities looking for a clot source that was negative his creatinine is too high to do a CT angio. And his baseline x-ray has enough abnormality that a V/ Q scan probably would not be worth it. He did have elevated BNP and pulmonary edema on his x-ray. The patient has been getting diuresis had a good diuresis yesterday. Creatinine has remained stable. Plan to hold furosemide 40 mg daily again today given his ongoing orthostasis and elevated creatinine yesterday. Recheck tomorrow. He will most likely be started on 20 mg again as his usual home medication. 2. Acute and probably chronic hypoxic respiratory failure due to congestive heart failure and pulmonary fibrosis. Use down to 1 L per nasal prongs today. Continues to be markedly short of breath with minimal exertion. Saturations in the mid 90s. He will most likely be discharged tomorrow to intermediate facility with probable oxygen therapy continued. 3. Syncopal episode. No signs of ongoing arrhythmia telemetry will continue. Troponins were negative. 4. Parkinson's disease possibly contributing to the syncope with autonomic insufficiency. 5. Chronic kidney disease stage 3. Stable except elevated creatinine yesterday suggesting acute prerenal kidney injury due to over diuresis. Hold furosemide and recheck tomorrow. 6. Code status: Full code. 7. Disposition: Continue physical therapy due to weakness. He will require an additional day in the hospital to stabilize medically. He will still need to be evaluated by Occupational therapy. Most likely transfer to intermediate facility in a.m. Quality VTE Deep Vein Thrombosis/Pulmonary Embolism Present on Admission: No
--- NOTE | 2018-03-18 11:27 | PC.NURSE ---
Addendum entered by Tiffany Kurtz R.N. 03/18/18 12:20: Was seen by OT after his shower, and is sitting up in the chair for lunch. OT Dinora reported that patient reports some swallowing issues and difficulty managing his saliva sometimes. This is not a new development, but she wondered if [facility] eval would be appropriate. This sign writer hand presented this info to DIEGO Browne and he was going to put in order for [facility]. Apparently patient and did not want to transfer to SNF today, most likely he'll go tomorrow. In chair with alarm on, light in reach. Original Note: Shift summary: Alert and oriented X3. Orthostatic BP's were checked by PT, then reported to this sign writer hand who entered the values. BP dropped to 74/49 while standing, back up to 128/71 once lying in bed for a few minutes. Heart rate steadily in the 70's. Stood at bedside with this sign writer hand for approx 2 minutes using urinal. BP was not checked at that time, but he denied any dizziness or lightheadedness at that time. Denied shortness of breath. SpO2 on 1L 96%. Lungs with fine posterior bibasilar crackles. Denies cough. HRR, tele monitoring ongoing. Able to make needs known and calls appropriately. Light in reach, bed alarm on.
--- NOTE | 2018-03-18 13:16 | OT.IP.EVAL ---
Current Diagnoses Heart failure, unspecified (03/14/18) Past Medical History (Last Updated 03/14/18 @ 14:07 by Olayinka Khalil MD) Carotid artery disease (Acute) Coronary artery disease (Acute) GERD (gastroesophageal reflux disease) (Acute) Hypertension (Acute) Pulmonary fibrosis (Chronic) Back pain (Acute) Concussion (Acute) HBP (high blood pressure) (Acute) Neck pain (Acute) Parkinsons (Acute) TIA (transient ischemic attack) (Acute) Surgical History History of tonsillectomy Status post appendectomy Status post cholecystectomy Occupational Therapy Inpatient Evaluation/Re-Eval M1 PT/OT-IP Prior Functional Status Start: 03/16/18 10:31 Freq: Status: Active Protocol: Document 03/17/18 15:42 [facility] (Rec: 03/17/18 16:50 [facility] [id number]) Medical Review Prior Functional Status Medical History Reviewed Yes Communication WNL Mobility and Gait Indep. community ambulator without device. Activities of Daily Living and IADL's Indep. I/ADLs, including driving. Social History Household Members spouse Living Arrangements House Number of Floors (Floors) Two Floors Number of Stairs To Enter/Railing? no steps to enter; enters @ daylight basement, bathroom and bed available down stairs, his master bedroom and all other accommodations on 2nd level which has ~15 steps with unilateral rail Home Environment Standard Height Toilet Walk in Shower Home Equipment Shower Seat without Backrest M1 PT/OT-IP Prior Functional Status Start: 03/16/18 16:14 Freq: NEEDED Status: Active Protocol: Document 03/18/18 13:00 [facility] (Rec: 03/18/18 13:13 [facility] [id number]) Medical Review Prior Functional Status Medical History Reviewed Yes Communication WNL Mobility and Gait Indep. community ambulator without device. Activities of Daily Living and IADL's Indep. I/ADLs, including driving. Prior Functional Level (Other details) Per pt's has been having more trouble in the last two months and increased time for all needs. Pt has trouble with FMS, handwriting, trouble to control his saliva, and difficulty with thin liquids at times. Social History Household Members spouse Living Arrangements House Number of Floors (Floors) Two Floors Number of Stairs To Enter/Railing? no steps to enter; enters @ daylight basement, bathroom and bed available down stairs, his master bedroom and all other accommodations on 2nd level which has ~15 steps with unilateral rail Home Environment Standard Height Toilet Walk in Shower Home Equipment Shower Seat without Backrest M2 OT-IP Current Condition Start: 03/16/18 16:14 Freq: Status: Active Protocol: Document 03/18/18 13:00 [facility] (Rec: 03/18/18 13:13 [facility] [id number]) Occupational Therapy Current Condition Current Condition Evaluation Date 03/18/18 Treatment Diagnosis Syncope, GLF Post Operative Precautions Other Precautions monitor BP M3 OT- IP Subjective and Pain Start: 03/16/18 16:14 Freq: Status: Active Protocol: Document 03/18/18 13:00 [facility] (Rec: 03/18/18 13:13 [facility] [id number]) OT- Subjective Occupational Therapy Visit Type Type Initial Evaluation Visit Start Time 11:40 Visit Stop Time 11:30 Total Visit Minutes 50 Notes Pt agreeable to do therapy and present for the session. Occupational Therapy Visit Comments Patient/Caregiver Goals Pt states to be able to get stronger and be independent again. OT Pain Assessment Pain When Pain Assessed At Rest Pain Present Pain Present Denied Pain M4 OT- IP ADL's Start: 03/16/18 16:14 Freq: Status: Active Protocol: Document 03/18/18 13:00 [facility] (Rec: 03/18/18 13:13 [facility] [id number]) OT [id number] General Evaluation Diet Level for Self-Feeding Low Sodium Self-Feeding Ability Standby Assistance Areas Needing Assistance Cutting Food Opening Containers Comments OT Self-Feeding Comments Pt does better with finger food and could benefit from weighted utensils. Due to tremors in right hand, needing assist for set-up of tray. Pt could benefit from [facility] eval as noted pt sounding wet while clearing his throat and states drools. OT ADL-Toileting General Evaluation Toileting Ability Minimal Assistance Areas Needing Assistance Manage Clothing Devices Toileting Assistive Devices Grab Bars Comments OT Toileting Comments Assist for completeness of clothing. M6 OT- IP Functional Cognition Start: 03/16/18 16:14 Freq: Status: Active Protocol: Document 03/18/18 13:00 [facility] (Rec: 03/18/18 13:13 [facility] [id number]) Cognitive Factors Limiting Selfcare Function Cognitive Ability Level of Alertness Alert Patient Orientation Name Year Day of Week Place Situation Attention Span Ability Capable of Focused Attention Capable of Sustained Attention Ability to Follow Commands Able to Follow One Step Commands Memory Description Short Term Impaired Safety Awareness Underestimates Need for Assistance Problem Solving Ability Needs Assist to Identify Solutions Cognitive Comments Cognitive Assessment Comments Pt per having STM memory issues. Pt needing repetitive vc for instructions. Pt needing simple concrete commands to follow. Went over energy conservation with pt and . M7 OT- IP Mobility and Balance Start: 03/16/18 16:14 Freq: Status: Active Protocol: Document 03/18/18 13:00 [facility] (Rec: 03/18/18 13:15 [facility] [id number]) OT-Transfer Assessment Sit to and From Stand Sit to and from Stand Standby Assistance Contact Guard Assistance Transfers Transfer Ability Contact Guard Assistance Minimal Assistance Technique Transfer Destination Chair Toilet Transfer Technique Stand Step Pivot Devices Transfer Assistive Devices Gait Belt Front Wheeled Walker Orthotic/Prosthetic Devices or Brace: No Comments Mobility Comments Pt unsteady on his feet and needing assist for balance and especially when making turns with FWW. VC for FWW safety. OT- Balance Assessment Sitting Balance and Reactions Static Sitting Balance Ability Normal Dynamic Sitting Balance Ability Good Standing Balance and Reactions Static Standing Balance Ability Fair M9 OT- IP Assessment and Plan Start: 03/16/18 16:14 Freq: Status: Active Protocol: Document 03/18/18 13:00 [facility] (Rec: 03/18/18 13:13 [facility] [id number]) OT Summary Assessment and Plan Potential Rehabilitation Potential Good Analytic Complexity at Evaluation Moderate Summary OT Impairments Balance Coordination Functional Cognition Functional Mobility Self-Feeding Grooming Dressing Toileting Bathing Toilet Transfers Shower Transfers Progress Towards Goals Slow Progress due to Medical Issues Slow Progress due to Activity Tolerance Slow Progress due to Cognition Assessment Summary Pt MOD complexity due to decreased BP while standing, now needing assist and use of FWW for ADl and functional mobility needs. Pt now on oxygen and having decreased activity tolerance, balance, endurance, and would benefit from skilled rehab. Goals Self-Feeding Goal Standby Assistance Grooming Goal Standby Assistance Dressing Goal Standby Assistance Toileting Goal Standby Assistance Bathing Goal Minimal Assistance Toilet Transfer Goal Standby Assistance Shower Transfer Goal Standby Assistance Patient/Caregiver Education Goal Demonstrate Energy Conservation and Pacing Caregiver Independent Assisting Patient Days to Meet Goals 7 Frequency of Treatment Frequency Of Treatment Once a Day Treatment Plan OT Treatment Plan ADL Training Functional Cognition Training Functional Mobility Patient/Family Education Discharge Planning Discharge Recommendations OT Discharge Recommendations SNF Rehab Home Equipment Needs BSC, Shower chair with back, grab bars
--- NOTE | 2018-03-18 15:00 | PT.IPTN ---
Current Diagnoses Heart failure, unspecified (03/14/18) Physical Therapy Treatment Note M2 PT-IP Current Condition Start: 03/16/18 10:31 Freq: Status: Active Protocol: Document 03/18/18 14:40 [facility] (Rec: 03/18/18 17:51 [facility] [id number]) Physical Therapy Current Condition Current Condition Evaluation Date 03/16/18 Treatment Diagnosis syncope, GLF, impaired activity tolerance Onset Date 03/14/18 Precautions Other Precautions monitor BP M3 PT-IP Subjective Start: 03/16/18 10:31 Freq: Status: Active Protocol: Document 03/18/18 14:40 [facility] (Rec: 03/18/18 17:51 [facility] [id number]) Subjective Physical Therapy Visit Type Type Treatment Note Visit Start Time 14:40 Visit Stop Time 15:05 Total Visit Minutes 25 Notes in room during session Number of HEAD TURBINE OPERATOR Visits 0 Physical Therapy Visit Comments Patient Comments Pt reported no lightheadedness , however complained of neck pain M4 PT-IP Mobility and Gait Start: 03/16/18 10:31 Freq: Status: Active Protocol: Document 03/18/18 14:40 [facility] (Rec: 03/18/18 17:51 [facility] [id number]) PT-Bed Mobility Assessment Supine to Sit Supine to Sit Standby Assistance Scooting Scooting to Edge of Bed Standby Assistance PT-Transfer Assessment Sit to and From Stand Sit to and from Stand Standby Assistance Equipment Transfer Assistive Device Gait Belt Front Wheeled Walker Comments Mobility Comments Supine BP: 123/65 Sitting EOB: 108/60 Standin/52 Gait Assessment Gait Gait Assistance Required: Contact Guard Assist Distance (Feet) (feet) 65 Assistive Devices Assistive Device Gait Belt Front Wheeled Walker Gait Deviations General Gait Pattern Decreased Stride Length Decreased Feet Clearance Factors Limiting Gait Function Factors Limiting Gait Function Decreased Activity Tolerance Decreased Strength Poor Balance Comments Gait Comments O2 sat 88% on 1 L O2 following activity, recovery to 94% within one minute M6 PT-IP Treatment Start: 03/16/18 10:31 Freq: Status: Active Protocol: Document 03/18/18 08:25 [facility] (Rec: 03/18/18 15:14 [facility] [id number]) Physical Therapy Treatment Exercises Exercises Ankle Pumps Heel Slides M7 PT-IP Assessment and Plan Start: 03/16/18 10:31 Freq: Status: Active Protocol: Document 03/18/18 14:40 [facility] (Rec: 03/18/18 17:51 [facility] [id number]) PT Summary Assessment and Plan Summary Assessment Summary Pt had no complaints of dizziness, reported he felt much more energetic while walking Goals Bed Mobility Goal Independent Transfer Goal Independent Gait Goal Independent Front Wheel Walker Gait Distance 300 Other Goals up/down 15 step and unilateral rail, CGA. Days to Meet Goals 3 Frequency of Treatment Frequency Of Treatment Twice a Day Treatment Plan Other Recommendations and Next Treatment monitor BP, gait as tolerated. Focus Recommendations To Nursing Amount of Assist Needed 1 Person Assist Discharge Recommendations PT Discharge Recommendations SNF Rehab
--- NOTE | 2018-03-18 15:19 | PT.IPTN ---
Current Diagnoses Heart failure, unspecified (03/14/18) Physical Therapy Treatment Note M2 PT-IP Current Condition Start: 03/16/18 10:31 Freq: Status: Active Protocol: Document 03/18/18 08:25 [facility] (Rec: 03/18/18 15:14 [facility] [id number]) Physical Therapy Current Condition Current Condition Evaluation Date 03/16/18 Treatment Diagnosis syncope, GLF, impaired activity tolerance Onset Date 03/14/18 Precautions Other Precautions monitor BP M3 PT-IP Subjective Start: 03/16/18 10:31 Freq: Status: Active Protocol: Document 03/18/18 08:25 [facility] (Rec: 03/18/18 15:14 [facility] [id number]) Subjective Physical Therapy Visit Type Type Treatment Note Visit Start Time 08:25 Visit Stop Time 09:00 Total Visit Minutes 35 Number of SITE LEAD Visits 0 Physical Therapy Visit Comments Patient Comments Pt became lightheaded during standing for BP check. M4 PT-IP Mobility and Gait Start: 03/16/18 10:31 Freq: Status: Active Protocol: Document 03/18/18 08:25 [facility] (Rec: 03/18/18 15:14 [facility] [id number]) PT-Bed Mobility Assessment Supine to Sit Supine to Sit Standby Assistance Scooting Scooting to Edge of Bed Contact Guard Assistance PT-Transfer Assessment Sit to and From Stand Sit to and from Stand Contact Guard Assistance Equipment Transfer Assistive Device Gait Belt Front Wheeled Walker Comments Mobility Comments Reclined in bed: BP 107/66, standing 74/49 c/o lightheadedness). M5 PT-IP Objective Assessments Start: 03/16/18 10:31 Freq: Status: Active Protocol: Document 03/16/18 10:00 [facility] (Rec: 03/16/18 10:47 [facility] [id number]) Orientation Orientation/Cognition Level of Alertness Alert Strength Lower Extremity Strength Hip 3+/5 bilaterally Ankle PF 3+/5, DF 4+/5 bilaterally Coordination Assessment Gross Coordination Gross Coordination WNL Sensation Assessment Sensation Gross Sensation Right LE Impaired Left LE Impaired Sensation Description Tingling Burning Comments Sensation Comments pt admits to bilateral buring , tingling of the plantar surfaces of feet, he reports this is his baseline. Other Assessments Other Other Assessments Resting UE tremor, forward flexed posture in sitting and standing. M6 PT-IP Treatment Start: 03/16/18 10:31 Freq: Status: Active Protocol: Document 03/18/18 08:25 [facility] (Rec: 03/18/18 15:14 [facility] [id number]) Physical Therapy Treatment Exercises Exercises Ankle Pumps Heel Slides M7 PT-IP Assessment and Plan Start: 03/16/18 10:31 Freq: Status: Active Protocol: Document 03/18/18 08:25 [facility] (Rec: 03/18/18 15:19 [facility] [id number]) PT Summary Assessment and Plan Summary Assessment Summary Pt demonstrates sympoms of orthostatic hypotension from sit to stand. Today he complained of onset of lightheadedness with standing. Pt's BP standing was 74/49; therefore ambulation was held this AM. Pt's BP returned after 3' rest to 128/71; therefore activity and ex will benefit the pt's return to function. Goals Bed Mobility Goal Independent Transfer Goal Independent Gait Goal Independent Front Wheel Walker Gait Distance 300 Other Goals up/down 15 step and unilateral rail, CGA. Days to Meet Goals 3 Frequency of Treatment Frequency Of Treatment Twice a Day Treatment Plan Other Recommendations and Next Treatment monitor BP, gait as tolerated. Focus Recommendations To Nursing Amount of Assist Needed 1 Person Assist Discharge Recommendations PT Discharge Recommendations SNF Rehab
[2018-03-18] MEDS: ACETAMINOPHEN 325 MG TABLET 650 MG PO (15:22)
[2018-03-18] MEDS: ASPIRIN EC 81 MG TABLET PO (17:05)
[2018-03-18] MEDS: METOPROLOL 25 MG TABLET PO (21:33)
[2018-03-18] MEDS: ATORVASTATIN 20 MG TABLET 40 MG PO (21:33)
--- NOTE | 2018-03-18 22:13 | PC.NURSE ---
Lelia shift- Pt worked with PT and OT today, pt reports ready to transfer to snf tomorrow. 95% 1L O2 nc this shift, denies lightheadedness and dizziness while up to BRP and used urinal to void clear yellow urine. mild to mod tremors noted to hands bilat r/t recent diagnosis of Parkinson's. Using acapella and reviewing spl exercises as to aid in removing secretions in mouth/throat. Neck/head pain resolved with APAP given @ 1515. Denies pain, SOB, and nausea this shift. Call light in reach and bed alarm on for safety.
[2018-03-19] VITALS (9 sets, daily range): BP systolic 102–141; BP diastolic 48–73; PULSE 65–84; RESP 16–18; TEMP 36.6–36.8; O2SAT 93–97
--- NOTE | 2018-03-19 02:01 | PC.NURSE ---
Patient is alert and oriented; very soft spoken. Breath sounds are CTA; on oxygen at 1L/min per NC with sat of 95%. Denies SOB with/without exertion. Denies cough/sputum production. HRR and was SR w/BBB on 0000 telemetry reading. Denies nausea. BT present and abdomen is soft. Has urinary urgency and stress incontinence as well as dribbling but denies dysuria or frequency. Independent with bed mobility but due to weakness is assisted with walker when up to bathroom. Has numbness/tingling in toes of bilateral feet. Tremor noted in right UE. Denies pain. Fall risk score is high and bed alarm is activated.
[2018-03-19] MEDS: PANTOPRAZOLE 40 MG TABLET PO (06:35)
[2018-03-19 07:01] LABS: BUN Creatinine Ratio 33.9 (6-22); Blood Urea Nitrogen 61 mg/dL (9-20); Calcium 9.2 mg/dL (8.4-10.2); Carbon Dioxide 29 mmol/L (22-32); Chloride 100 mmol/L (98-107); Estimated Glomerular Filt Rate 36.5 mL/min (>60); Glucose 106 mg/dL (80-110); HEMOLYSIS < 15 (0-50); Potassium 4.4 mmol/L (3.4-5.1); Sodium 139 mmol/L (137-145)
[2018-03-19] MEDS: SODIUM CHLORIDE 0.9% FLUSH 10 ML IV (09:40)
[2018-03-19] MEDS: METOPROLOL 25 MG TABLET PO (09:40)
--- NOTE | 2018-03-19 09:44 | PM.DS.1 ---
History of Present Illness Date Patient Seen: 03/19/18 Time Patient Seen: 09:44 Chief complaint: Syncope / GLF Narrative: 82-year-old male presents with increasing shortness of breath over the past several days and an episode today where he lost consciousness probable syncopal episode. 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 Today while at a coffee shop he had upped had an episode where he was going to sit down and passed out and lost consciousness for maybe 20 sec he thinks. No associated chest pain with that. No prior history of heart failure. Discharge Providers Date of admission: 03/14/18 13:40 Primary care physician: Jessica Celestin MD Consults: 03/15/18 15:52 Consult to Occupational Therapy Evaluate & Treat Comment: Physician Instructions: Evaluate and treat Consult to Physical Therapy Evaluate & Treat Comment: Physician Instructions: Evaluate and Treat 03/16/18 06:24 Consult to Physical Therapy Evaluate & Treat Comment: weakness Physician Instructions: Evaluate and Treat 03/18/18 12:39 Consult to Speech Therapy Evaluate & Treat Comment: Physician Instructions: Evaluate and treat Discharge provider: DIEGO Barth Summary Discharge Diagnosis: 1. Acute systolic heart failure exacerbation 2. Acute on chronic hypoxic respiratory failure due to 1. 3. Syncopal episode 4. Parkinson's (Acute) 5. Chronic kidney disease stage 3 6. Chronic pulmonary fibrosis Hospital Course: This is a summary of a 5 day hospitalization for this 82-year-old pleasant male who was admitted through our emergency department with syncope and ground level fall. He initially presented to the emergency room with oxygen saturations in the mid to high 80s on room air. He had an elevated BNP and his chest x-ray showed pulmonary edema. He was placed on cardiac telemetry, oxygen via nasal prongs, and diuresed. His echocardiogram showed acute systolic heart failure exacerbation and a decreased ejection fraction, decreased RV function and dilated RV consistent with chronic pulmonary disease. In light of his echocardiogram findings the question was brought up about pulmonary embolism however we thought that his symptoms and findings on echo or more explained by chronic hypoxemia from his pulmonary fibrosis. He did have an ultrasound Doppler of lower extremities looking for clot source that was found to be negative and his creatinine was too high to do CT angio. He has had no further syncopal episodes during this hospitalization but his blood pressure on tilts have remained positive. Currently is not complaining of lightheadedness or dizziness when he gets up to the use the bathroom or bedside commode. His ground level fall and lightheadedness is probably related to his Parkinson's disease as a result of autonomic insufficiency. Cardiac telemetry reveals normal sinus rhythm with a bundle branch block and he has had 2 episodes of short lasting PSVT rates about 150 to 160 which could also explain some of his early hospitalization lightheadedness. He was also continued on metoprolol and since that point time is had no further dysrhythmias the last 72 hr. His creatinine was a high of 2.4 and is currently 1.8.. We will restart his Lasix when [facility]. Both he and his are in agreement that rehabilitation post hospitalization will be important and he will be transferred to [facility] for physical, occupational and speech therapy. He will also need follow-up with his primary care provider to further assess needs for anti-parkinsonian medications when indicated. Status at Discharge Overall status at discharge: patient is progressing back to baseline Time Spent with Patient Greater than 30 minutes Exam Vital Signs (past 8 hours): - 03/19/18 01:57 03/19/18 01:58 03/19/18 06:14 Temperature 98.1 F Pulse Rate 65 Respiratory Rate 16 Blood Pressure 132/65 H Pulse Oximetry 95 95 96 03/19/18 06:38 03/19/18 06:39 03/19/18 08:00 Temperature 97.8 F Pulse Rate 66 Respiratory Rate 18 Blood Pressure 123/61 H Pulse Oximetry 93 93 97 Oxygen Delivery Method Nasal Cannula Oxygen Flow Rate 1 Narrative Exam Narrative: Sitting in bedside chair in no acute distress. Const General: cooperative, healthy appearing and comfortable Nutritional Appearance: average body habitus Orientation: alert, awake and oriented x3 HENMT Head: normal to inspection, normocephalic and atraumatic Eyes General: appearance normal, both eyes and all related structures Pupils: PERRL Neck Neck: normal visual inspection, trachea midline and supple Chest Chest: normal inspection of the chest Resp Effort & Inspection: normal respiratory effort and able to speak in complete sentences Auscultation: crackles bilaterally lower 1/3 of lung umanzor. Cardio Rate: regular rate Heart Sounds: S1 normal, S2 normal and murmur diastolic II/ and at the right sternal border GI Inspection: normal to inspection Palpation: soft Auscultation: normal bowel sounds Other: Nontender Other: None remarkable Back/Spine/Pelvis Other: Unremarkable Skin General: no rashes or lesions noted, dry skin and warm Neuro General: alert, awake and oriented x3 Cognition: normal cognition Speech: speech normal Extrem General: normal to inspection, capillary refill normal and no pedal edema Psych Appearance: grossly normal Mental Status: mental status grossly normal Mood: congruent mood Affect: normal affect Attitude: cooperative Thought Process: normal Thought Content: normal Judgment: judgment good Objective Objective Labs Result Diagrams: 03/15/18 06:00 03/19/18 06:22 Labs: Laboratory Results - last 24 hr 03/19/18 06:22 Sodium 139 Potassium 4.4 Chloride 100 Carbon Dioxide 29 BUN 61 H Creatinine 1.80 H Estimated GFR 36.5 L BUN/Creatinine Ratio 33.9 H Glucose 106 Calcium 9.2 :Name: TOPHER BELTRAN Study Date: 03/14/2018 Height: 69 in : :[facility] Weight: 168 lb : : Gender: Male BSA: 1.9 m2 : :: 1935 Age: 82 yrs BP: 139/69 mmHg: :Reason For Study: Syncope : : Performed By: Korin Lopez : :Referring: VIRAJ IRELAND : + + Interpretation Summary The patient was in normal sinus rhythm during the exam. The patient had a bundle branch block rhythm during the exam. The left ventricle is normal in size. Septal motion is consistent with conduction abnormality. There is moderate hypokinesis noted of the left ventricular apex and periapical mann with an estimated ejection fraction in the range of 40-50%. The right ventricle is mildly dilated. Right ventricular systolic function is mildly reduced. The right ventricular systolic pressure is estimated at 45 mmHg assuming a right atrial pressure of 3 mm Hg. The IVC is of normal diameter and collapses greater than 50% with a sniff. This suggests a low right atrial pressure of 3 mm Hg. No other echocardiographic abnormalities seen. The etiology for this patient's syncope is not clearly identified on this examination. The presence of modest right ventricular enlargement and hypokinesis in addition to a moderate elevation in pulmonary artery pressure suggest the possibility of pulmonary emboli. Clinical correlation suggested. Procedure: A two-dimensional transthoracic echocardiogram with color flow and Doppler was performed. The study quality was technically adequate. Comparison is made with the echocardiogram of 02-17-10. The patient had a bundle branch block rhythm during the exam. The patient was in normal sinus rhythm during the exam. Left Ventricle: The left ventricle is normal in size. There is normal left ventricular wall thickness. The ejection fraction is estimated to be 45-50%. Septal motion is consistent with conduction abnormality. There is moderate hypokinesis noted of the left ventricular apex and periapical mann with an estimated ejection fraction in the range of 40-50%. Right Ventricle: The right ventricle is mildly dilated. Right ventricular systolic function is mildly reduced. Atria: The left atrium is moderately dilated. Right atrium not well visualized. The interatrial septum is intact with no evidence for an atrial septal defect. Mitral Valve: The mitral valve is grossly normal. There is mild mitral regurgitation. Aortic Valve: The aortic valve is moderately calcified. Leaflet mobility is mildly reduced. There is mild aortic valve sclerosis. There is mild aortic regurgitation. Tricuspid Valve: The tricuspid valve is not well visualized. There is trace tricuspid regurgitation. The right ventricular systolic pressure is estimated at 45 mmHg assuming a right atrial pressure of 3 mm Hg. Pulmonic Valve: The pulmonic valve is not well seen, but is grossly normal. There is mild pulmonic regurgitation. Great Vessels: The aortic root is normal size. The ascending aorta is at the upper limits of normal in size. The IVC is of normal diameter and collapses greater than 50% with a sniff. This suggests a low right atrial pressure of 3 mm Hg. Pericardium/ Pleura There is no pericardial effusion. There is no pleural effusion. MMode/2D Measurements & Calculations LVIDd: 4.9 cm LVOT diam: 2.4 cm LVIDs: 3.5 cm Ao root diam: 3.6 cm FS: 28.0 % Aortic Jxn: 3.3 cm EPSS: 0.91 cm asc Aorta Diam: 3.5 cm IVSd: 0.88 cm Ao Arch Diam (Prox Trans): 3.3 cm LVPWd: 0.76 cm LV draper. diameter/BSA (cm/m^2): 2.6 LV sys. diameter/BSA (cm/m^2): 1.8 LA dimension: 4.2 cm IVC diam: 1.1 cm LA A2 area: 23.6 cm2 LA A4 area: 23.4 cm2 LA length (vol): 5.5 cm LA vol: 84.7 ml LA vol index: 44.2 ml/m2 BARBIE (plan): 1.8 cm2 Doppler Measurements & Calculations Ao V2 max: 208.2 cm/sec LVOT Max Damian: 84.5 cm/sec Ao V2 mean: 133.4 cm/sec LV V1 max P.9 mmHg Ao max P.3 mmHg LV V1 VTI: 18.5 cm Ao mean P.4 mmHg BARBIE(I,D): 2.0 cm2 Ao V2 VTI: 42.2 cm BARBIE(V,D): 1.8 cm2 sev ratio: 0.44 BARBIE indexed to BSA (cm^2/m^2): 1.0 MV E max damian: 41.6 cm/sec TR max damian: 324.1 cm/sec MV A max damian: 92.9 cm/sec TR max P.0 mmHg MV E/A: 0.45 PA V2 max: 110.3 cm/sec Med Peak E' Damian: 4.5 cm/sec PA V2 mean: 66.7 cm/sec E/E' med: 9.2 PA mean P.2 mmHg Lat Peak E' Damian: 6.8 cm/sec PA Accel Time: 0.12 sec E/E' lat: 6.1 E/e' average: 7.6 MV dec time: 0.23 sec MV P1/2t: 68.5 msec MV P1/2t max damian: 40.6 cm/sec MVA(P1/2t): 3.2 cm2 Reading Physician:05:12 PM PROCEDURE: CT HEAD/BRAIN WO CON INDICATIONS: 82 year-old male with syncope. TECHNIQUE: Noncontrast 4.5 mm thick angled axial sections acquired from the foramen magnum to the vertex, with coronal and sagittal reformats. For radiation dose reduction, the following was used: automated exposure control, adjustment of mA and/or kV according to patient size. COMPARISON: [facility], CT, HEAD WITHOUT CONTRAST, 10/11/2014, 10:22. FINDINGS: Image quality: Excellent. CSF spaces: Basal cisterns are patent. No extra-axial fluid collections. The ventricles are symmetric in size and shape. Brain: No intracranial bleeds or masses. Localized encephalomalacia of the right parietal lobe is again noted, consistent with nonacute ischemic insult. There are mild periventricular white matter chronic small vessel ischemic changes. There is intracranial internal carotid and bilateral vertebral artery atherosclerosis. Skull and face: Calvarium and visualized facial bones appear intact, without suspicious lesions. Sinuses: Visualized sinuses and mastoids are clear. IMPRESSION: 1. No acute intracranial abnormalities. 2. 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 3. Mild periventricular white matter chronic small vessel ischemic change. Dictated by: Allan Garces M.D. on 03/14/2018 at 8:17 Approved by: Allan Garces M.D. on 03/14/2018 at 8:21 PROCEDURE: US PERIPH VENOUS LOW EXTREM BI INDICATIONS: hypoxia TECHNIQUE: Real-time imaging, as well as color and pulse Doppler interrogation, were performed of the deep veins of both legs from the inguinal ligament to the popliteal fossa. COMPARISON: [facility], PVE UNILATERAL LEFT, 08/22/2011, 9:26. FINDINGS: The deep veins are normally compressible, and free of intraluminal thrombus. Color and pulse Doppler demonstrate normal phasic intravascular flow. There is normal augmentation response to distal compression maneuver. IMPRESSION: No DVT in lower extremities bilaterally. Dictated by: Jesús Bartholomew M.D. on 03/14/2018 at 11:08 Approved by: Jesús Bartholomew M.D. on 03/14/2018 at 11:11 PROCEDURE: XR CHEST 1V INDICATIONS: chest pain TECHNIQUE: One view of the chest was acquired. COMPARISON: [facility], CHEST 2 VIEW, 11/23/2016, 8:05. FINDINGS: Surgical changes and devices: Linear area of high attenuation within the right upper quadrant of the midportion of the abdomen probably is related to prior cholecystectomy.. Lungs and pleura: Diffuse reticulonodular interstitial prominence is identified predominantly seen within the lung apices and the lung bases. There is relative sparing within the perihilar regions. No lobar consolidation, large effusion, or pneumothorax is evident. Mediastinum: Mediastinal contours appear normal. Heart size is normal. Bones and chest wall: No suspicious bony lesions. Degenerative changes of the spine and shoulders are not adequately evaluated. Overlying soft tissues appear unremarkable. IMPRESSION: Chronic interstitial lung changes appear to be similar to the prior study. The possibility of superimposed pulmonary edema or atypical infection cannot be excluded. Dictated by: Crow Calixto M.D. on 03/14/2018 at 8:37 Approved by: Crow Calixto M.D. on 03/14/2018 at 8:38 Quality VTE Deep Vein Thrombosis/Pulmonary Embolism Present on Admission: No
--- NOTE | 2018-03-19 10:16 | ST.IPTN ---
FLY RAISER LOCKSTITCH Treatment Note FLY [facility]ST[facility] Treatment Note Start: 03/18/18 13:38 Freq: Status: Active Protocol: Document 03/19/18 10:06 [facility] (Rec: 03/19/18 10:16 [facility] [id number]) Speech Pathology Treatment Note Session Time Visit Start Time 08:55 Visit Stop Time 09:20 Total Visit Minutes 25 Setting Treatment Setting Acute Care Visit Type Note Type Treatment Note Next Note Type Next Note Type Treatment Note Subjective Identification Type Name Other Identification Reconciled With Medical Record Observations/Patient Presentation Patient awake and alert, sitting up in chair with OT just leaving. No complaint of pain pre/post treatment. Patient stated that he was doing well with his breakfast, but that he continued to have difficutly managing his saliva. He stated that he does not experience coughing or choking, but rather anterior loss of saliva, more on the right side than left. When he is actively thinking about keeping his mouth closed, he is able to maintain control and swallow when he needs to. But he has started noticing that his mouth is open more often, and he is drooling. He stated that he has been off his Parkinson's medicaion for about a week due to a consult with his physician. He stated that he was told that Parkinson's medication may lead to cardiac complications, so he chose to stop taking this medication. He stated that he has not experienced a decline in status since stopping this medication. He also mentioned that he noticed a small improvement in ability to manage secretions. Chief Complaint(s) Other Rehab Expectation/Goals: Patient Goals Patient will improve in oral motor strength to manage secretions independen Patient Knowledge/Awareness of FLY RAISER LOCKSTITCH Role Excellent in Treatment Objective Short Term Goals Patient will perform oral motor exercises to improve buccal and labial strength to reduce anterior loss of saliva . Mandrel Maker Goals Patient will successfully manage secretions without anterior loss. Treatment Activities Oral motor activities targeting buccal strength and labial strength to improve labial closure. Able to accurately complete 4 exercises x3 reps each with visual cues and 90% accuracy. Observed mild right sided weakness with occasional saliva bubbles in the right labial corner, but able to maintain adequate labial seal with and without resistance. Patient verbalized understanding of exercises and was able to demonstrate them independently and accurately. Continue oral motor exercises next session for further strengthening. Discussed outpatient LOUD program at [facility] and recommended that the patient consider this as an option to continue strengthening intervention. Patient verbalized understanding. Assessment Patient Response to Treatment Excellent Rehab Potential Excellent Impairments Identified Oral Motor Parkinson's Disease Assessment of Overall Progress Improving Reviewed with Patient Goals Plan Comment Follow up daily Comment Once a Day Comment 25 minutes Treatment Emphasis Next Session Oral motor exercises to improve labial closure Therapeutic Contents Home Exercise Program Oral Motor Training Provided Patient/Caregiver Instruction Home Exercise Program
--- NOTE | 2018-03-19 10:30 | PC.NURSE ---
Addendum entered by Tiffany Kurtz R.N. 03/19/18 14:04: Transfer to [facility]: Given Zantac right before d/c for complaints of acid reflux after lunch. IV dc'd intact. Tele dc'd. All personal belongings sent at discharge. Report called to So at [facility]. Patient transferred into wheelchair and taken out by [facility] staff (on 1L O2- our tank). Forgot packet with orders, so will give to transport staff when she brings our O2 tank back. Original Note: Shift summary: Awake and alert, oriented X3. Orthostatic vitals better today, OT recorded BP 102/48 after he had been standing. Ambulated back and forth to with this process description writer, denied dizziness, lightheadedness or SOB during transfer. Lungs with bibasilar crackles, SpO2 95% on 1L. OT did RA trial with de-sats into the 80's. Denies pain or discomfort. Plan to transfer to [facility] today, patient and aware and agreeable. Back to bed per patient request. Call light in reach, bed alarm on.
--- NOTE | 2018-03-19 10:35 | OT.IP.TRT ---
Current Diagnoses Heart failure, unspecified (03/14/18) Occupational Therapy Treatment Note M2 OT-IP Current Condition Start: 03/16/18 16:14 Freq: Status: Active Protocol: Document 03/18/18 13:00 [facility] (Rec: 03/18/18 13:13 [facility] [id number]) Occupational Therapy Current Condition Current Condition Evaluation Date 03/18/18 Treatment Diagnosis Syncope, GLF Post Operative Precautions Other Precautions monitor BP M3 OT- IP Subjective and Pain Start: 03/16/18 16:14 Freq: Status: Active Protocol: Document 03/19/18 08:30 [facility] (Rec: 03/19/18 10:35 [facility] [id number]) OT- Subjective Occupational Therapy Visit Type Type Treatment Note Visit Start Time 08:30 Visit Stop Time 08:50 Total Visit Minutes 20 Notes Pt improved with balance and stability today. Occupational Therapy Visit Comments Patient Comments Pt wanting to use the bathroom . OT Pain Assessment Pain When Pain Assessed At Rest Pain Present Pain Present Denied Pain M4 OT- IP ADL's Start: 03/16/18 16:14 Freq: Status: Active Protocol: Document 03/19/18 08:30 [facility] (Rec: 03/19/18 10:35 [facility] [id number]) OT ADL-Grooming General Evaluation Grooming Ability Standby Assistance Areas Needing Assistance Retrieving/Set-up of Grooming Items Comments OT Grooming Comments SBA and able to do all grooming needs. OT ADL-Toileting General Evaluation Toileting Ability Standby Assistance Devices Toileting Assistive Devices Grab Bars Comments OT Toileting Comments Pt cues to get closer to the toilet, and to use FWW to get himself closer to and over the toilet. M6 OT- IP Functional Cognition Start: 03/16/18 16:14 Freq: Status: Active Protocol: Document 03/19/18 08:30 [facility] (Rec: 03/19/18 10:35 [facility] [id number]) Cognitive Factors Limiting Selfcare Function Cognitive Ability Level of Alertness Alert Patient Orientation Name Year Day of Week Place Situation Attention Span Ability Capable of Focused Attention Capable of Sustained Attention Ability to Follow Commands Able to Follow Multi-Step Commands Memory Description Short Term Impaired Safety Awareness Underestimates Need for Assistance Problem Solving Ability Needs Assist to Identify Solutions Cognitive Comments Cognitive Assessment Comments Pt doing better todya to follow commands and does not remember OT session from yesterday. M7 OT- IP Mobility and Balance Start: 06/30/18 16:14 Freq: Status: Active Protocol: Document 03/19/18 08:30 [facility] (Rec: 03/19/18 10:35 [facility] [id number]) OT- Bed Mobility Assessment Rolling Type of Rolling Roll to Left Level of Assistance Standby Assistance Sit to Supine Sit to Supine Assist Standby Assistance Scooting Scooting to Edge of Bed Standby Assistance OT-Transfer Assessment Sit to and From Stand Sit to and from Stand Standby Assistance Transfers Transfer Ability Standby Assistance Contact Guard Assistance Technique Transfer Destination Chair Transfer Technique Stand Step Pivot Devices Transfer Assistive Devices Gait Belt Front Wheeled Walker Comments Mobility Comments Pt better balance today and even while doing turns, occasional CGA for balance. Pt 's O2 on 1L from 91-95, pt on RA after walking in the room dropped to 82%, O2 replaced back on and within 1 min increase to 91%. OT- Balance Assessment Sitting Balance and Reactions Static Sitting Balance Ability Normal Dynamic Sitting Balance Ability Normal Standing Balance and Reactions Static Standing Balance Ability Good Dynamic Standing Balance Ability Fair M9 OT- IP Assessment and Plan Start: 03/16/18 16:14 Freq: Status: Active Protocol: Document 03/19/18 08:30 [facility] (Rec: 03/19/18 10:35 [facility] [id number]) OT Summary Assessment and Plan Potential Rehabilitation Potential Excellent Summary OT Impairments Balance Coordination Functional Cognition Functional Mobility Dressing Toileting Bathing Shower Transfers Progress Towards Goals Progressing Toward Goals Slow Progress due to Cognition Assessment Summary Pt much improved for balance today however still having difficulty with saliva control which restorative rehab aide is seeing pt and for dynamic standing balance, pt to go to skilled rehab. Goals Self-Feeding Goal Independent Grooming Goal Independent Dressing Goal Standby Assistance Toileting Goal Standby Assistance Bathing Goal Minimal Assistance Toilet Transfer Goal Standby Assistance Shower Transfer Goal Standby Assistance Patient/Caregiver Education Goal Demonstrate Energy Conservation and Pacing Caregiver Independent Assisting Patient Frequency of Treatment Frequency Of Treatment Once a Day Treatment Plan OT Treatment Plan ADL Training Functional Cognition Training Functional Mobility Patient/Family Education Discharge Planning Discharge Recommendations OT Discharge Recommendations SNF Rehab Home Equipment Needs BSC, Shower chair with back, grab bars
--- NOTE | 2018-03-19 11:04 | CM.DPC ---
DCP: continued: TOYIN/Mary was here this morning to see pt and Heather in followup to Heather's tour of the facility yesterday. DC order in now in place and both express that they are comfortable with the d/c today. Final orders are faxed to [facility] and put to packet/snf. MARIANO Allen is updated P: [facility] 1330 w/c with 02 transport.
== END 2018-03-19 13:30 | DRG 291 ==
LOC: ED 11:58 → AC 13:41
PROVIDERS: Internal Medicine; Nurse Practitioner Acute Care; Admitting Provider Internal Medicine; Emergency Provider Emergency Medicine; Family Provider Internal Medicine; PCP Internal Medicine; Visit Provider Internal Medicine
DX: I13.0 Hypertensive heart and chronic kidney disease with heart failure and stage 1 through stage 4 chronic kidney disease, or unspecified chronic kidney disease (principal); I50.21 Acute systolic (congestive) heart failure; J96.21 Acute and chronic respiratory failure with hypoxia; N18.3 Chronic kidney disease, stage 3 (moderate); K21.9 Gastro-esophageal reflux disease without esophagitis; I25.10 Atherosclerotic heart disease of native coronary artery without angina pectoris; G20 Parkinson's disease; J84.10 Pulmonary fibrosis, unspecified; R55 Syncope and collapse
CPT/HCPCS: 36415; 36591; 36600; 70450; 71045; 80048; 80053; 81003; 82550; 82553; 82805; 83880; 84484; 85025; 85610; 92507; 92526; 92610; 93005; 93041; 93306; 93970; 94760; 94762; 97116; 97163; 97166; 97530; 97535; 99285; J1940

== ENCOUNTER 2018-03-29 21:00 | Inpatient (IN) | payer MEDICARE, OTHER, SELFPAY ==
[2018-03-14 14:01] VITALS: BMI 24.7
[2018-03-29 21:48] VITALS: BP 149/75; PULSE 78; RESP 28; TEMP 37.6; O2SAT 85
--- NOTE | 2018-03-29 21:56 | PC.NURSE ---
reports hx of pulminary frbirosis and parkinsisn. reports difficulty breathing for a few weeks but getting worse. pt uses 3L oxygen at home. unable to miantain sats above 92 on 3L. oxygen titrated to 6L
[2018-03-29 21:58] VITALS: BP 141/65; PULSE 74; RESP 18; O2SAT 95
[2018-03-29 22:08] LABS: INR 1.2 (0.9-1.3); Prothrombin Time 13.2 SECONDS (10.1-12.7)
[2018-03-29 22:10] LABS: Add Manual Diff / Slide Review NO; Basophils Percent Auto 1.3 % (0-2); Eosinophils Percent Auto 3.9 % (2-4); Hematocrit 33.6 % (41-53); Hemoglobin 11.4 g/dL (13.5-17.5); Lymphocytes Percent Auto 13.8 % (25-40); Mean Corpuscular Hemoglobin 33.6 PG (26-34); Mean Corpuscular Volume 98.8 fL (80-100); Neutrophils Absolute Auto 5800 /uL (3000-5900); Platelet Count 226 X10^3/uL (150-400); Red Cell Distribution Width 13.4 % (11.6-14.8); White Blood Cell Count 8.4 X10^3/uL (4.5-11.0)
[2018-03-29 22:14] LABS: Alanine Aminotransferase 21 IU/L (21-72); Albumin 3.6 g/dL (3.5-5.0); Albumin Globulin Ratio 1.1 (1.0-2.8); Alkaline Phosphatase 115 U/L (38-126); Aspartate Aminotransferase 29 IU/L (17-59); BUN Creatinine Ratio 19.5 (6-22); Bilirubin Total 0.9 mg/dL (0.2-1.3); Blood Urea Nitrogen 37 mg/dL (9-20); Calcium 8.9 mg/dL (8.4-10.2); Carbon Dioxide 29 mmol/L (22-32); Chloride 101 mmol/L (98-107); Creatine Kinase 69 U/L (55-170); Estimated Glomerular Filt Rate 34.3 mL/min (>60); Globulin 3.2 g/dL (1.7-4.1); Glucose 121 mg/dL (80-110); HEMOLYSIS < 15 (0-50); Potassium 4.6 mmol/L (3.4-5.1); Sodium 139 mmol/L (137-145); Total Protein 6.8 g/dL (6.3-8.2)
[2018-03-29 22:22] LABS: Lactate (Lactic Acid) 1.2 mmol/L (0.7-2.1)
[2018-03-29 22:26] LABS: Troponin I 0.044 ng/mL (0.01-0.034)
--- NOTE | 2018-03-29 22:52 | ED.SOB ---
HPI - SOB/Dyspnea General Chief Complaint: Shortness of Breath/Dyspnea Stated Complaint: SOB Time Seen by Provider: 03/29/18 21:05 Source: patient and family Mode of arrival: ambulatory Limitations: no limitations History of Present Illness 82-year-old male with longstanding history of coronary artery disease, CHF presents to the emergency department with a few days of worsening shortness of breath particularly with any exertion, lying flat or even talking. He has had some cough but denies fever or chills. An end of February he was seen here under similar circumstances and diagnosed with acute CHF. He was in the hospital for 5 days and discharged to [place] [facility]. On arrival he had pulse ox 85% on 3 L MD Complaint: shortness of breath, cough and pain with inspiration Onset (ago): day(s) Severity: moderate Consistency/Duration: constant Relieving factors: oxygen Exacerbating factors: exertion, coughing and talking Known history of: congestive heart failure Associated symptoms: chest pain, pain with inspiration and cough Treatment prior to arrival: oxygen Related Data Home Medications Medication Instructions Recorded Confirmed fluticasone [Flonase Allergy 2 spray INTRANASAL DAILY #0 12/20/16 03/29/18 Relief] Osteo Bi-Flex 1 tab PO DAILY 03/14/18 03/29/18 aspirin [Ecotrin Low Strength] 81 mg PO 1700 03/14/18 03/29/18 atorvastatin 40 mg PO QPM 03/14/18 03/29/18 furosemide 20 mg PO DAILY 03/14/18 03/29/18 metoprolol tartrate 25 mg PO BID 03/14/18 03/29/18 Tagamet HB 1 tab PO QPM PRN 03/15/18 03/29/18 bisacodyl 5 mg PO BEDTIME 03/29/18 03/29/18 bisacodyl [Dulcolax (bisacodyl)] 5 mg PO BEDTIME 03/29/18 03/29/18 magnesium hydroxide [Milk Of 30 ml PO DAILY PRN 03/29/18 03/29/18 Magnesia Concentrated] omeprazole magnesium [Prilosec OTC] 20 mg PO DAILY 03/29/18 03/29/18 Allergies Allergy/AdvReac Type Severity Reaction Status Date / Time No Known Drug Allergies Allergy Verified 03/29/18 21:48 Review of Systems Review of Systems All systems reviewed & are unremarkable except as noted in HPI and below Constitutional Denies chills, Denies fever(s), Denies lethargy and Denies weakness Eyes Denies change in vision, Denies eye discharge, Denies irritation and Denies loss of vision ENT Ears, Nose, Mouth, and Throat: Denies change in voice, Denies neck pain and Denies sore throat Cardiovascular Reports chest pain, Denies irregular heart rhythm, Denies lightheadedness, Denies palpitations, Reports dyspnea, Reports dyspnea on exertion and Reports orthopnea Respiratory Denies cough, Reports dyspnea, Reports dyspnea on exertion and Denies wheezing Gastrointestinal Gastrointestinal: Denies abdominal pain, Denies change in bowel habits, Denies diarrhea, Denies nausea and Denies vomiting Genitourinary Denies hematuria, Denies flank pain, Denies urinary incontinence and Denies urinary urgency Musculoskeletal Denies neck pain Integumentary/Breasts Denies pruritus, Denies erythema, Denies rash and Denies wounds Neurologic Denies confusion, Denies loss of vision and Denies weakness Psychiatric Denies anxiety, Denies confusion, Denies depression, Denies homicidal ideation and Denies suicidal ideation Endocrine Denies palpitations Hematologic/Lymphatic Denies easy bruising Allergic/Immunologic Denies wheezing PFSH Medical History Back pain (Acute) Carotid artery disease (Acute) Concussion (Acute) Coronary artery disease (Acute) GERD (gastroesophageal reflux disease) (Acute) HBP (high blood pressure) (Acute) Hypertension (Acute) Neck pain (Acute) Parkinsons (Acute) TIA (transient ischemic attack) (Acute) Pulmonary fibrosis (Chronic) Surgical History History of tonsillectomy Status post appendectomy Status post cholecystectomy Family History Mother Hypertension Stroke Social History household members: spouse Smoking Status: Former smoker alcohol intake: current Exam Narrative Exam Narrative: 82-year-old male obviously in distress and having a difficult time breathing Initial Vital Signs Initial Vital Signs: Vital Signs Temperature 99.7 F H 03/29/18 21:48 Pulse Rate 78 03/29/18 21:48 Respiratory Rate 28 H 03/29/18 21:48 Blood Pressure 149/75 H 03/29/18 21:48 Pulse Oximetry 85 L 03/29/18 21:48 Const General: cooperative, well developed and acute distress Nutritional Appearance: well nourished Orientation: alert, awake, oriented x3 and not confused [facility] Head: normocephalic and atraumatic Ears: external ears normal and TM's normal bilaterally Nose: external nose normal and No nasal discharge Face and sinus: sinuses nontender, face symmetric, no sinus tenderness and No dry mucous membranes Mouth: oral mucosae normal and moist mucous membranes Teeth and gingiva: dentition normal Throat: tonsils normal and uvula midline Chest Chest: normal inspection of the chest Resp Effort & Inspection: normal respiratory effort, able to speak in complete sentences, respiratory distress and uses accessory muscles Auscultation: diminished lung sounds, rales, no rhonchi and wheezes Cardio Rate: regular rate Rhythm: regular rhythm Heart Sounds: no click, no gallops, no murmurs and no rubs Pulses: normal peripheral pulses GI Inspection: non-distended Palpation: soft, no hepatosplenomegaly, No guarding, No pulsatile mass and No tender Auscultation: normal bowel sounds Back/Spine/Pelvis Back: No CVA tenderness Cervical Spine: cervical ROM normal and No pain with cervical ROM Thoracic/Lumbar Spine: thoracic and lumbar spine normal to inspection Skin General: no rashes or lesions noted, No jaundice and No petechiae Neuro General: alert, oriented x3, gait normal and no focal motor deficits Speech: speech normal Course Orders Ordered: ED Orders 03/29/18 21:50 BNP [B Type Natriuretic Peptide] Stat Complete Blood Count AUTO DIFF Stat Comprehensive Metabolic Panel Stat Lactate (Lactic Acid) Stat PT [Prothrombin Time INR] Stat Troponin & CK Cardiac Panel Stat 03/29/18 21:57 Consult to Respiratory Therapy Evaluate & Treat EKG-12 Lead Stat 03/29/18 22:03 Blood Culture Stat 03/29/18 23:09 Arterial Blood Gas Stat 03/30/18 01:35 Consult to Dietitian, Adult Routine Sodium Chloride (Normal Saline 0.9%) 1,000 mls @ 80 mls/hr IV CONT MARY Last Admin: 03/30/18 01:44 Dose: 80 mls/hr Sodium Chloride (Normal Saline 0.9% Flush) 10 ml IV PRN PRN PRN Reason: Flush Discontinued Medications Levofloxacin (Levaquin) 500 mg in 100 mls @ 100 mls/hr IV NOW ONE Stop: 03/29/18 23:52 Last Infusion: 07/14/18 00:42 Dose: 0 mls/hr Admin: 03/29/18 23:11 Dose: 100 mls/hr Vital Signs - 8 hr 03/29/18 21:48 03/29/18 21:58 03/29/18 23:21 Temperature 99.7 F H Pulse Rate 78 74 70 Respiratory Rate 28 H 18 30 H Blood Pressure 149/75 H Blood Pressure [Left Arm] 141/65 H 138/61 H Pulse Oximetry 85 L 95 94 03/30/18 01:32 03/30/18 04:16 Temperature 99.0 F 98.5 F Pulse Rate 73 71 Respiratory Rate 20 18 Blood Pressure 133/66 H 122/63 H Blood Pressure [Left Arm] Pulse Oximetry 92 87 L MDM - SOB/Dyspnea Lab Data Result diagrams: 03/29/18 21:50 03/29/18 21:50 Lab Results 03/29/18 03/29/18 03/29/18 Range/Units 21:50 21:50 21:50 WBC 8.4 (4.5-11.0) X10^3/uL RBC 3.40 L (4.5-5.9) X10^6/uL Hgb 11.4 L (13.5-17.5) g/dL Hct 33.6 L (41-53) % MCV 98.8 (80-100) fL MCH 33.6 (26-34) PG MCHC 34.0 (30-36) % RDW 13.4 (11.6-14.8) % Plt Count 226 (150-400) X10^3/uL Neut % (Auto) 69.0 (50-75) % Lymph % (Auto) 13.8 L (25-40) % [place] % (Auto) 12.0 (3-14) % Eos % (Auto) 3.9 (2-4) % Baso % (Auto) 1.3 (0-2) % Neut # (Auto) 5800 (7850-0161) /uL PT (10.1-12.7) SECONDS INR (0.9-1.3) ABG pH (7.35-7.45) ABG pCO2 (35-45) mmHg ABG pO2 (80-105) mmHg ABG HCO3 (23-27) mmol/L ABG Total CO2 (23-27) mmol/L ABG O2 Saturation (95-100) % ABG Base Excess (-2-3) mmol/L FiO2 Sodium 139 (137-145) mmol/L Potassium 4.6 (3.4-5.1) mmol/L Chloride 101 (98-107) mmol/L Carbon Dioxide 29 (22-32) mmol/L BUN 37 H (9-20) mg/dL Creatinine 1.90 H (0.66-1.25) mg/dL Estimated GFR 34.3 L (>60) mL/min BUN/Creatinine Ratio 19.5 (6-22) Glucose 121 H (80-110) mg/dL Lactate 1.2 (0.7-2.1) mmol/L Calcium 8.9 (8.4-10.2) mg/dL Total Bilirubin 0.9 (0.2-1.3) mg/dL AST 29 (17-59) IU/L ALT 21 (21-72) IU/L Alkaline Phosphatase 115 (38-126) U/L Total Creatine Kinase (55-170) U/L CK-MB (CK-2) Troponin I (0.01-0.034) ng/mL B-Natriuretic Peptide (<100) Total Protein 6.8 (6.3-8.2) g/dL Albumin 3.6 (3.5-5.0) g/dL Globulin 3.2 (1.7-4.1) g/dL Albumin/Globulin Ratio 1.1 (1.0-2.8) 03/29/18 03/29/18 03/29/18 Range/Units 21:50 21:50 21:50 WBC (4.5-11.0) X10^3/uL RBC (4.5-5.9) X10^6/uL Hgb (13.5-17.5) g/dL Hct (41-53) % MCV (80-100) fL MCH (26-34) PG MCHC (30-36) % RDW (11.6-14.8) % Plt Count (150-400) X10^3/uL Neut % (Auto) (50-75) % Lymph % (Auto) (25-40) % [place] % (Auto) (3-14) % Eos % (Auto) (2-4) % Baso % (Auto) (0-2) % Neut # (Auto) (8400-4016) /uL PT 13.2 H (10.1-12.7) SECONDS INR 1.2 (0.9-1.3) ABG pH (7.35-7.45) ABG pCO2 (35-45) mmHg ABG pO2 (80-105) mmHg ABG HCO3 (23-27) mmol/L ABG Total CO2 (23-27) mmol/L ABG O2 Saturation (95-100) % ABG Base Excess (-2-3) mmol/L FiO2 Sodium (137-145) mmol/L Potassium (3.4-5.1) mmol/L Chloride (98-107) mmol/L Carbon Dioxide (22-32) mmol/L BUN (9-20) mg/dL Creatinine (0.66-1.25) mg/dL Estimated GFR (>60) mL/min BUN/Creatinine Ratio (6-22) Glucose (80-110) mg/dL Lactate (0.7-2.1) mmol/L Calcium (8.4-10.2) mg/dL Total Bilirubin (0.2-1.3) mg/dL AST (17-59) IU/L ALT (21-72) IU/L Alkaline Phosphatase (38-126) U/L Total Creatine Kinase 69 (55-170) U/L CK-MB (CK-2) TNP Troponin I 0.044 H (0.01-0.034) ng/mL B-Natriuretic Peptide 264.0 H (<100) Total Protein (6.3-8.2) g/dL Albumin (3.5-5.0) g/dL Globulin (1.7-4.1) g/dL Albumin/Globulin Ratio (1.0-2.8) / Range/Units 23:09 WBC (4.5-11.0) X10^3/uL RBC (4.5-5.9) X10^6/uL Hgb (13.5-17.5) g/dL Hct (41-53) % MCV (80-100) fL MCH (26-34) PG MCHC (30-36) % RDW (11.6-14.8) % Plt Count (150-400) X10^3/uL Neut % (Auto) (50-75) % Lymph % (Auto) (25-40) % [place] % (Auto) (3-14) % Eos % (Auto) (2-4) % Baso % (Auto) (0-2) % Neut # (Auto) (6661-7899) /uL PT (10.1-12.7) SECONDS INR (0.9-1.3) ABG pH 7.45 (7.35-7.45) ABG pCO2 37.0 (35-45) mmHg ABG pO2 71 L (80-105) mmHg ABG HCO3 26 (23-27) mmol/L ABG Total CO2 27 (23-27) mmol/L ABG O2 Saturation 95 (95-100) % ABG Base Excess 2.0 (-2-3) mmol/L FiO2 6 Sodium (137-145) mmol/L Potassium (3.4-5.1) mmol/L Chloride (98-107) mmol/L Carbon Dioxide (22-32) mmol/L BUN (9-20) mg/dL Creatinine (0.66-1.25) mg/dL Estimated GFR (>60) mL/min BUN/Creatinine Ratio (6-22) Glucose (80-110) mg/dL Lactate (0.7-2.1) mmol/L Calcium (8.4-10.2) mg/dL Total Bilirubin (0.2-1.3) mg/dL AST (17-59) IU/L ALT (21-72) IU/L Alkaline Phosphatase (38-126) U/L Total Creatine Kinase (55-170) U/L CK-MB (CK-2) Troponin I (0.01-0.034) ng/mL B-Natriuretic Peptide (<100) Total Protein (6.3-8.2) g/dL Albumin (3.5-5.0) g/dL Globulin (1.7-4.1) g/dL Albumin/Globulin Ratio (1.0-2.8) Discharge Plan Departure Patient Disposition: Admitted As Inpatient Discharge Date/Time: 03/30/18 01:02 Interventions: ED Discharge Assessment Last Done: 03/30/18 01:02 Admit Date/Time: 03/30/18 00:00 Admit Provider: Jessica Celestin
[2018-03-29] MEDS: levoFLOXacin 500 MG/100 ML PIGGYBACK 100 MG IV (23:11)
[2018-03-29 23:21] VITALS: BP 138/61; PULSE 70; RESP 30; O2SAT 94
[2018-03-29 23:24] LABS: Fractionated Inspired Oxygen 6; HCO3 ABG 26 mmol/L (23-27); Oxygen Saturation ABG 95 % (95-100); PO2 ABG 71 mmHg (80-105); TCO2 ABG 27 mmol/L (23-27); pH ABG 7.45 (7.35-7.45)
--- NOTE | 2018-03-29 23:26 | RT ---
ABG PERFORMED ON 6LPM NASAL CANNULA, LEFT RADIAL, + EVER'S TEST. REPORTED TO DR. YOUNGBLOOD IMMEDIATELY AFTER SAMPLING.
[2018-03-30] VITALS (15 sets, daily range): BP systolic 122–147; BP diastolic 63–80; PULSE 67–81; RESP 18–27; TEMP 36.7–37.2; O2SAT 87–100; BMI 24.0
[2018-03-30] MEDS: SODIUM CHLORIDE 0.9% 1,000 ML 80 ML IV ×2 (01:44→13:42)
--- NOTE | 2018-03-30 02:19 | PC.ADMIT ---
Addendum entered by Nickie Paul R.N. 03/30/18 06:07: Patient oximeter alarming and when RN entered room patient was attempting to use urinal and sats initially 71%. Noted to be mouth breathing so O2 prongs placed in mouth and O2 increased resulting in sats gradually increasing to 88% over an approximate 10 minute time frame. RT contacted and placed patient on HFNC and is currently on 8L/min and sat is at 95%. Patient denies pain except with cough. Noted intermittent dry sounding cough. Original Note: [email or web address] [facility] Admission Note: The patient,Tano Herrera,82 y/o, was given written information regarding hospital policies, unit procedures and contact persons. Patient's smoking status: Former smoker. Vital Signs - 8 hr 03/29/18 21:48 03/29/18 21:58 03/29/18 23:21 Temperature 99.7 F H Pulse Rate 78 74 70 Respiratory Rate 28 H 18 30 H Blood Pressure 149/75 H Blood Pressure [Left Arm] 141/65 H 138/61 H Pulse Oximetry 85 L 95 94 03/30/18 01:32 Temperature 99.0 F Pulse Rate 73 Respiratory Rate 20 Blood Pressure 133/66 H Blood Pressure [Left Arm] Pulse Oximetry 92 Patient arrived at 0106 per stretcher from ER into room 222. Patient is alert and oriented. On oxygen at 6L/min with sat of 97%. Reports SOB with any exertion but able to speak in complete sentences. Breath sounds with inspiratory crackles throughout. HRR and was placed on telemetry with reading of SR-BBB. Denies nausea. BT present and abdomen is soft. Does have some bruising on right forearm, left flank/rib cage, and an abrasion on left knee related to fall he sustained while at [facility] prior to admission. Also noted a flat pink rash in groins. Needing some assistance to reposition in bed due to SOB. Reports he has been incontinent when he can't get to bathroom quickly enough. When assisted with urinal it took him a while for urine stream to start and patient states he has had problems in past with retention. Denies any pain. Does have tremor in right UE due to Parkinson's. Also has burning sensation in bilateral feet. Fall risk score is high and bed alarm activated.
--- NOTE | 2018-03-30 09:05 | P.HP_ITS ---
History of Present Illness Date Patient Seen: 03/30/18 Time Patient Seen: 08:40 Chief complaint: SOB Narrative: 82-year-old man with pulmonary fibrosis, congestive heart failure and Parkinson's disease under the primary care of Dr. Jessica Celestin was admitted to this hospital 03/14/2018 after an episode of syncope due to acute on chronic systolic congestive heart failure, discharged to [facility] on 2017 where he has remained, recuperating with significant weakness in the setting of baseline Parkinson's disease. He states he had been improving until 2 days ago when he ?hit a wall? started developing increasing cough and shortness of breath, without overt fevers, chills or significant ankle swelling. On admission it is noted that his weight is up 5 lb from his recent discharge. Patient History Medical History Back pain (Acute) Carotid artery disease (Acute) Concussion (Acute) Coronary artery disease (Acute) GERD (gastroesophageal reflux disease) (Acute) HBP (high blood pressure) (Acute) Hypertension (Acute) Neck pain (Acute) Parkinsons (Acute) TIA (transient ischemic attack) (Acute) Pulmonary fibrosis (Chronic) Surgical History History of tonsillectomy Status post appendectomy Status post cholecystectomy Family & Social History Family History: Reviewed 03/30/18 by Ike Maldonado MD Social History: household members spouse Prior Living Arrangements Skilled Nurse Facility Safety & Behavioral: Feels Safe in Current Yes Environment Been Physically Hurt or No Threatened By a Person Suicidal Ideation Description None Suicide Plan Description No Plan Tobacco & Substance use: Smoking Status Former smoker alcohol intake current alcohol intake frequency 0-2 drinks per day Meds Home Medications Medication Instructions Recorded Confirmed Type fluticasone [Flonase Allergy 2 spray INTRANASAL DAILY #0 12/20/16 03/29/18 History Relief] Osteo Bi-Flex 1 tab PO DAILY 03/14/18 03/29/18 History aspirin [Ecotrin Low Strength] 81 mg PO 1700 03/14/18 03/29/18 History atorvastatin 40 mg PO QPM 03/14/18 03/29/18 History furosemide 20 mg PO DAILY 03/14/18 03/29/18 History metoprolol tartrate 25 mg PO BID 03/14/18 03/29/18 History Tagamet HB 1 tab PO QPM PRN 03/15/18 03/29/18 History bisacodyl 5 mg PO BEDTIME 03/29/18 03/29/18 History bisacodyl [Dulcolax (bisacodyl)] 5 mg PO BEDTIME 03/29/18 03/29/18 History magnesium hydroxide [Milk Of 30 ml PO DAILY PRN 03/29/18 03/29/18 History Magnesia Concentrated] omeprazole magnesium [Prilosec OTC] 20 mg PO DAILY 03/29/18 03/29/18 History Allergies Allergy/AdvReac Type Severity Reaction Status Date / Time No Known Drug Allergies Allergy Verified 03/29/18 21:48 Review of Systems Review of Systems All systems reviewed & are unremarkable except as noted in HPI and below Exam Vital Signs (past 8 hours): - 03/30/18 01:32 03/30/18 04:16 03/30/18 04:27 Temperature 99.0 F 98.5 F Pulse Rate 73 71 Respiratory Rate 20 18 Blood Pressure 133/66 H 122/63 H Pulse Oximetry 92 87 L 94 03/30/18 06:00 03/30/18 06:12 03/30/18 07:32 Temperature 98.3 F Pulse Rate 76 Respiratory Rate 24 Blood Pressure 147/74 H Pulse Oximetry 88 L 95 92 Oxygen Delivery Method High Flow Nasal Cannula Oxygen Flow Rate 8 Narrative Exam Narrative: General: Elderly male, parkinsonian faces, with mild to moderate respiratory distress at rest HEENT: Pupils equal round reactive, extraocular movements intact, mucous membranes pink and moist Neck: Supple Lungs: Diffuse crackles bilateral lung umanzor Cardiac: Regular rate and rhythm without audible murmur Abdomen: Soft, nontender Extremities trace pedal edema Neurologic: Parkinsonian facies, right arm resting tremor, mild rigidity, no focal neurologic deficits evident otherwise Dermatologic: No rash or skin lesions Objective Imaging Chest x-ray: Radiologist's impression: PROCEDURE: XR CHEST 2V INDICATIONS: SHORTNESS OF BREATH TECHNIQUE: 2 views of the chest were acquired. COMPARISON: Merged With [facility], CT, THORAX WITHOUT CONTRAST, 10/07/2015, 10:42. Merged With [facility], CR, CHEST 2 VIEW, 08/25/2015, 8:56. Merged With [facility], CR, CHEST 2 VIEW , 08/16/2015, 15:56. Merged With [facility], CR, CHEST 1 VIEW, 10/11/2014, 10:19. Merged With [facility], CR, CHEST 2 VIEW, 11/23/2016, 8:05. Merged With [facility], CR, XR CHEST 1V, 03/14/2018, 8:38. FINDINGS: Surgical changes and devices: None. Lungs and pleura: There are bilateral diffuse interstitial and airspace infiltrates, increased compared to the last chest x-ray dated 03/14/2018. No pleural effusions or pneumothorax. Lungs are clear. Mediastinum: Mediastinal contours are normal. Heart size is mildly increased. Bones and chest wall: No suspicious bony abnormalities. Soft tissues appear unremarkable. IMPRESSION: 1. Increased bilateral interstitial and airspace infiltrates suspicious for acute pneumonic process such as pneumonia or pulmonary edema superimposed on chronic interstitial lung disease. 2. Mild cardiomegaly. ECG: Sinus rhythm at 72 beats per minute, left bundle branch block, no change from 03/15/2018 Labs Result Diagrams: 03/29/18 21:50 03/29/18 21:50 Labs: Laboratory Results - last 24 hr 03/29/18 03/29/18 03/29/18 21:50 21:50 21:50 WBC 8.4 RBC 3.40 L Hgb 11.4 L Hct 33.6 L MCV 98.8 MCH 33.6 MCHC 34.0 RDW 13.4 Plt Count 226 Neut % (Auto) 69.0 Lymph % (Auto) 13.8 L [place] % (Auto) 12.0 Eos % (Auto) 3.9 Baso % (Auto) 1.3 Neut # (Auto) 5800 PT INR ABG pH ABG pCO2 ABG pO2 ABG HCO3 ABG Total CO2 ABG O2 Saturation ABG Base Excess FiO2 Sodium 139 Potassium 4.6 Chloride 101 Carbon Dioxide 29 BUN 37 H Creatinine 1.90 H Estimated GFR 34.3 L BUN/Creatinine Ratio 19.5 Glucose 121 H Lactate 1.2 Calcium 8.9 Total Bilirubin 0.9 AST 29 ALT 21 Alkaline Phosphatase 115 Total Creatine Kinase CK-MB (CK-2) Troponin I B-Natriuretic Peptide Total Protein 6.8 Albumin 3.6 Globulin 3.2 Albumin/Globulin Ratio 1.1 03/29/18 03/29/18 03/29/18 21:50 21:50 21:50 WBC RBC Hgb Hct MCV MCH MCHC RDW Plt Count Neut % (Auto) Lymph % (Auto) [place] % (Auto) Eos % (Auto) Baso % (Auto) Neut # (Auto) PT 13.2 H INR 1.2 ABG pH ABG pCO2 ABG pO2 ABG HCO3 ABG Total CO2 ABG O2 Saturation ABG Base Excess FiO2 Sodium Potassium Chloride Carbon Dioxide BUN Creatinine Estimated GFR BUN/Creatinine Ratio Glucose Lactate Calcium Total Bilirubin AST ALT Alkaline Phosphatase Total Creatine Kinase 69 CK-MB (CK-2) TNP Troponin I 0.044 H B-Natriuretic Peptide 264.0 H Total Protein Albumin Globulin Albumin/Globulin Ratio 03/29/18 23:09 WBC RBC Hgb Hct MCV MCH MCHC RDW Plt Count Neut % (Auto) Lymph % (Auto) [place] % (Auto) Eos % (Auto) Baso % (Auto) Neut # (Auto) PT INR ABG pH 7.45 ABG pCO2 37.0 ABG pO2 71 L ABG HCO3 26 ABG Total CO2 27 ABG O2 Saturation 95 ABG Base Excess 2.0 FiO2 6 Sodium Potassium Chloride Carbon Dioxide BUN Creatinine Estimated GFR BUN/Creatinine Ratio Glucose Lactate Calcium Total Bilirubin AST ALT Alkaline Phosphatase Total Creatine Kinase CK-MB (CK-2) Troponin I B-Natriuretic Peptide Total Protein Albumin Globulin Albumin/Globulin Ratio Assessment & Plan Plan: Assessment/Plan Narrative: 1. Acute systolic congestive heart failure exacerbation. Advanced diuresis and monitor. 2. Possible pneumonia, healthcare associated. Continue Levaquin and follow cultures. 3. Pulmonary fibrosis. Suspect progressive underlying disease. 4. Acute on chronic hypoxic respiratory failure due to 1 and possibly 2. Continue supplemental oxygen. 5. Parkinson's disease. Continue routine medication. 6. Orthostatic hypotension due to autonomic insufficiency from Parkinson's disease. 7. Chronic kidney disease, stage III. Appears stable. 8. Code status: Full code. Consistent with recent admission. 9. Disposition: The patient is admitted to inpatient status as he will require at least 2 midnights of inpatient level care.
[2018-03-30] MEDS: METOPROLOL 25 MG TABLET PO ×2 (10:01→20:02)
[2018-03-30] MEDS: PANTOPRAZOLE 20 MG TABLET PO (10:01)
[2018-03-30] MEDS: FUROSEMIDE 40 MG/4 ML VIAL IV ×2 (10:01→17:25)
[2018-03-30 10:02] LABS: Procalcitonin 0.07 ng/mL (<0.5)
[2018-03-30] MEDS: SODIUM CHLORIDE 0.9% FLUSH 10 ML IV ×2 (13:42→20:03)
--- NOTE | 2018-03-30 14:58 | PC.NURSE ---
!430 Pt remains on bedrest, start of shift Pt on mO2 8 LNC, after dose IV lasix, Pt has been voiding, sats are 97-98%, reduced O2 to 7 LNC. Pt lung sounds diminshed thru out. Pt w/very freq voids of approx 100-150 ml urine, Pt c/o of being tired from the constant use of urinal. Placed a comdom cath on Pt to see if this would be comfortable/ less effort w/urination. Pt dernies pain, is pleasant & cooperative w/care needs.
--- NOTE | 2018-03-30 16:48 | PT.IIE ---
Current Diagnoses Acute and chronic respiratory failure with hypoxia (03/30/18) Surgical History (Last Reviewed 03/30/18 @ 09:00 by Ike Maldonado MD) History of tonsillectomy Status post appendectomy Status post cholecystectomy Medical History (Last Reviewed 03/30/18 @ 09:00 by Ike Maldonado MD) Back pain (Acute) Carotid artery disease (Acute) Concussion (Acute) Coronary artery disease (Acute) GERD (gastroesophageal reflux disease) (Acute) HBP (high blood pressure) (Acute) Hypertension (Acute) Neck pain (Acute) Parkinsons (Acute) TIA (transient ischemic attack) (Acute) Pulmonary fibrosis (Chronic) Physical Therapy Inpatient Evaluation/Re-Eval M1 PT/OT-IP Prior Functional Status Start: 03/30/18 17:33 Freq: NEEDED Status: Active Protocol: Document 03/30/18 16:48 AB (Rec: 03/30/18 17:51 AB [id number]) Medical Review Prior Functional Status Medical History Reviewed Yes Communication able to make needs known Mobility and Gait stated that prior to first hospitalization in february of this year, he was independent with all mobilities and ambulation without AD Social History Household Members spouse Living Arrangements House Number of Floors (Floors) Two Floors Number of Stairs To Enter/Railing? has no steps to enter but has 5 steps(with bilateral rails) +landing+ 12 steps with R rail ascending to get to main living area. stated that first level from the garage is where the rec room, a bedroom and quarter bath but pt uses bedroom upstairs. Home Environment Standard Height Toilet Walk in Shower Tub/Shower Employment Status Retired Additional Social History Comment pt was just admitted here in the hospital last february and was d/c'd March 19 to [facility]. pt's last hospitalization was due to a GLF, syncope with h/o orthostatic hypotension. while at [facility], developed SOB and now admitted for CHF M2 PT-IP Current Condition Start: 03/30/18 17:33 Freq: NEEDED Status: Active Protocol: Document 03/30/18 16:48 AB (Rec: 03/30/18 17:51 AB [id number]) Physical Therapy Current Condition Current Condition Evaluation Date 03/30/18 Treatment Diagnosis SOB, CHF; difficulty in walking Onset Date 03/30/18 Precautions Other Precautions monitor BP, O2 sat (currently @6 L O2) M3 PT-IP Subjective Start: 03/30/18 17:33 Freq: NEEDED Status: Active Protocol: Document 03/30/18 16:48 AB (Rec: 03/30/18 17:51 AB [id number]) Subjective Physical Therapy Visit Type Type Initial Evaluation Visit Start Time 16:48 Visit Stop Time 17:35 Total Visit Minutes 47 Number of PLATER BARREL Visits 0 Physical Therapy Visit Comments Patient Comments pt agreeable to do therapy Therapy Pain Assessment Pain Present Pain Present Denied Pain M4 PT-IP Mobility and Gait Start: 03/30/18 17:33 Freq: NEEDED Status: Active Protocol: Document 03/30/18 16:48 AB (Rec: 03/30/18 17:51 AB [id number]) PT-Bed Mobility Assessment Supine to Sit Supine to Sit Standby Assistance Scooting Scooting to Edge of Bed Standby Assistance PT-Transfer Assessment Sit to and From Stand Sit to and from Stand Minimal Assistance 1 Person Assistance Use of Upper Extremities Equipment Transfer Assistive Device Gait Belt Front Wheeled Walker Orthotic/Prosthetic Devices or Brace: No Transfers Transfer Destination Chair Bedside Commode Transfer Technique Stand Step Pivot Transfer Ability Level of Assist Moderate Assistance 1 Person Assistance Use of Upper Extremities Comments Mobility Comments pt requested to use the toilet . BP monitored due to h/o orthostatic hypotension. BP in supine: 142/67 TN 76 O2 sat 93% with 6L/min O2. BP sitting on EOB 130/63 TN 77 O2 sat decreased to 88% and pt cued for deep breathing, O2 sat increased to 91% after ~ 30 sec. BP in standing using FWW for support: 116/55 TN 81 O2 sat 87%. Due to significant decrease of BP, pt just used bedside commode at this time and transferred using FWW requiring mod A and cues. pt with (+) RUE tremors during transfer with staggering steps . pt sat on bedside commode and noted O2 sat decrease to 84%. pt stated that it is hard for him to take deep breathing when he has to strain to move his bowels. BP sitting on commode prior to standing up: 132/77 TN 80 O2 sat 91%. pt completed sit to stand min to mod A and cues. pt was able to maintain standing using FWW for support min A while NAC assisted with hygiene care. pt took steps to get into chair from bedside commode requiring min to mod A and cues. set pt up on chair. call light and table placed within reach. BP sitting on chair: 125/64 TN 77 O2 sat 92% Gait Assessment Gait Gait Assistance Required: Minimum Assistance Moderate Assistance Distance (Feet) (feet) 5 Able to Maintain Weight Bearing Status Yes During Gait Assistive Devices Assistive Device Gait Belt Front Wheeled Walker Orthotic/Prosthetic Devices or Brace: No Gait Deviations General Gait Pattern Decreased Stride Length Decreased Feet Clearance Festinating Factors Limiting Gait Function Factors Limiting Gait Function Decreased Activity Tolerance Decreased Strength Poor Balance Poor Safety Awareness Respiratory Distress PT-Balance Assessment Sitting Balance and Reactions Static Sitting Balance Ability Good Dynamic Sitting Balance Ability Good Standing Balance and Reactions Static Standing Balance Ability Fair Dynamic Standing Balance Ability Fair Device Used FWW M5 PT-IP Objective Assessments Start: 03/30/18 17:33 Freq: NEEDED Status: Active Protocol: Document 03/30/18 16:48 AB (Rec: 03/30/18 17:51 AB [id number]) Orientation Orientation/Cognition Level of Alertness Alert Orientation Name Age Birthday Month Date Year Day of Week Place Situation Gross Range of Motion Lower Extremity ROM Assessment Left Impaired Impairments decrease L knee extension Strength Lower Extremity Strength Assessment Within Functional Limits M6 PT-IP Treatment Start: 03/30/18 17:33 Freq: NEEDED Status: Active Protocol: Document 03/30/18 16:48 AB (Rec: 03/30/18 17:51 AB [id number]) Physical Therapy Treatment Education Education Provided Safety M7 PT-IP Assessment and Plan Start: 03/30/18 17:33 Freq: NEEDED Status: Active Protocol: Document 03/30/18 16:48 AB (Rec: 03/30/18 17:51 AB [id number]) PT Summary Assessment and Plan Potential Rehabilitation Potential Fair Status of Condition at Evaluation Evolving Summary Impairments Pain ROM Strength Balance Coordination Sensation Tone Cognition Bed Mobility Transfers Gait Activity Tolerance Assessment Summary pt requiring min to mod A with mobility and unable to tolerate much activity with decrese in BP and O2 sat with activity. pt will benefit from SNF rehab. Goals Bed Mobility Goal Standby Assistance Transfer Goal Standby Assistance Gait Goal Standby Assistance Gait Distance 100 Other Goals up/down 6 steps with bilateral rails SBA; up/down 12 steps with R rail ascending SBA Days to Meet Goals 3 Frequency of Treatment Frequency Of Treatment Twice a Day Treatment Plan Physical Therapy Treatment Plan Bed Mobility Training Transfer Training Gait Training Therapeutic Exercise Balance Retraining Post Op Education Discharge Planning Hot or Cold Pack Neuromuscular Re-ed Coordination Retraining Manual Therapy Recommendations To Nursing Amount of Assist Needed 1 Person Assist Discharge Recommendations PT Discharge Recommendations SNF Rehab Equipment Needed for Home Before FWW if going home Discharge
--- NOTE | 2018-03-30 16:56 | CM.DANOTE ---
DCP/Assessment: Reviewed chart. Patient is a 82yr old male admitted to [facility] from [facility] with SOB. Primary payor is 1) Medicare. PCP is Dr. Celestin. Met with patient explained CM/SW role. Patient alert and oriented during visit but requiring 02 for SOB. Patient reports that he anticipates returning to [facility] to continue rehab when medically stable. 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 Patient reports that he had been at [facility] for approximately 10 days before returning. Prior to illness patient indicates that he was I in all ADL's. Lives with his spouse/Yuliet in [place]. P: Pending. Anticipate return to [facility] if needed at time of d/c. CM team to follow up on 03-31-18 with referral to [facility]. RIVAS [place]a Discharge Planning/Care Management Discharge Assessment Start: 03/30/18 16:53 Freq: Status: Active Protocol: Document 03/30/18 16:53 KJS (Rec: 03/30/18 16:56 KJS [id number]) Discharge Planning Assessment Assigned Founding Partner [facility] History Provided By Patient Prior Living Arrangements Skilled Nurse Facility Household Members spouse Facility Name [facility] Willing to Return to Facility? Yes Independent with ADL's No Is patient alert and oriented? Yes Caregiver for Another No Community Services used prior to Oxygen Therapy admission: Comment Pt has gone to pulmonary rehab /[facility] in past and also participated in outpt Parkinson's groups. His spouse says he has been unable to do this for months now as his health has deteriorated. Referrals Initiated Retirement Comment put vm referral into [facility] now at request of pt's spouse. Pt's desire is to go home and get back to outpt Pulmonary rehab but he would consider HH first if need be. He is open to further discussion of this. Comment large 2 level home, 5 stairs to landing, 9-10 stairs to main living area. Additional Comment dc planning discussion newly in process. OT and PT orders are obtained now to help in this assessment process. Review Status In Process Next Review Type Continued Stay Review
[2018-03-30] MEDS: ATORVASTATIN 20 MG TABLET 40 MG PO (17:25)
[2018-03-30] MEDS: ASPIRIN EC 81 MG TABLET PO (17:25)
[2018-03-30] MEDS: levoFLOXacin 250 MG TABLET PO (22:11)
--- NOTE | 2018-03-30 22:57 | PC.NURSE ---
ADMISSION Received pt on 7L O2 via high-flow NC. pt slightly tachypneic but denies SOB. pt also denies any chest pain, only complaints of frequent urination from IV lasix. crackles heard to bilateral lower lobes, verified with Dr. Maldonado to d/c maintenance IV fluids.. o2 sats at 97-98 on 7L, weaned to 6L. pt noted to desat with any activity (even with just sitting up to use the urinal in bed). pt is also a mouth breather, and needs reinforcement to breath through nose. call light within reach.
[2018-03-31] VITALS (13 sets, daily range): BP systolic 115–136; BP diastolic 56–66; PULSE 63–85; RESP 16–21; TEMP 36.3–37.6; O2SAT 92–99
[2018-03-31] MEDS: SODIUM CHLORIDE 0.9% FLUSH 10 ML IV ×2 (01:16→09:14)
[2018-03-31] MEDS: FUROSEMIDE 40 MG/4 ML VIAL IV ×3 (01:16→18:04)
--- NOTE | 2018-03-31 03:13 | PC.NURSE ---
0310 pt denies pain and dyspnea at this time. Sats on 6L O2 93%. Pt has voided several times since receiving Lasix and is frustrated that he cannot sleep because of the urinary frequency. Discussed option of wearing a brief in case he is able to fall asleep, pt agreeable.
[2018-03-31 05:47] LABS: Add Manual Diff / Slide Review NO; Basophils Percent Auto 1.1 % (0-2); Eosinophils Percent Auto 5.6 % (2-4); Hematocrit 33.9 % (41-53); Hemoglobin 11.6 g/dL (13.5-17.5); Lymphocytes Percent Auto 19.3 % (25-40); Mean Corpuscular HGB Conc 34.3 % (30-36); Mean Corpuscular Hemoglobin 33.9 PG (26-34); Mean Corpuscular Volume 98.8 fL (80-100); Monocytes Percent Auto 11.3 % (3-14); Neutrophils Absolute Auto 4400 /uL (3000-5900); Neutrophils Percent Auto 62.7 % (50-75); Platelet Count 191 X10^3/uL (150-400); Red Blood Cell Count 3.43 X10^6/uL (4.5-5.9); Red Cell Distribution Width 13.4 % (11.6-14.8)
[2018-03-31 06:00] LABS: BUN Creatinine Ratio 19.4 (6-22); Blood Urea Nitrogen 33 mg/dL (9-20); Calcium 9.1 mg/dL (8.4-10.2); Carbon Dioxide 35 mmol/L (22-32); Chloride 94 mmol/L (98-107); Glucose 109 mg/dL (80-110); HEMOLYSIS < 15 (0-50); Potassium 3.8 mmol/L (3.4-5.1); Sodium 137 mmol/L (137-145)
--- NOTE | 2018-03-31 08:11 | CM.DPC ---
DCP Cont: SW called [facility] admissions Mary and confirmed that they can accept the pt back at discharge when medically stable and no concerns noted. Plan: SW to follow for return to [facility] when medically stable. No PASRR needed. Pt preference is [facility] at d/c. RIVAS Jennings
[2018-03-31] MEDS: PANTOPRAZOLE 20 MG TABLET PO (08:46)
[2018-03-31] MEDS: METOPROLOL 25 MG TABLET PO ×2 (08:46→21:55)
[2018-03-31] MEDS: FUROSEMIDE 20 MG TABLET PO (09:14)
--- NOTE | 2018-03-31 09:58 | PM.PN.1 ---
Subjective Date Patient Seen: 03/31/18 Time Patient Seen: 09:45 Interval history: The patient reports feeling much better, with significant net diuresis of 1.6 L overnight. He continues to be significantly hypoxic requiring 6 L of oxygen to maintain oxygen saturation of 92%. Exam Vital Signs (past 8 hours): - 03/31/18 03:10 03/31/18 06:12 03/31/18 08:28 Temperature 97.4 F L 98.3 F Pulse Rate 63 69 Respiratory Rate 20 21 Blood Pressure 136/61 H 124/61 H Pulse Oximetry 93 96 99 Oxygen Delivery Method Nasal Cannula Oxygen Flow Rate 7 Narrative Exam Narrative: General: Elderly male, parkinsonian faces, with mildly increased respiratory effort at rest HEENT: Pupils equal round reactive, extraocular movements intact, mucous membranes pink and moist Neck: Supple Lungs: Diffuse crackles bilateral lung umanzor Cardiac: Regular rate and rhythm without audible murmur Abdomen: Soft, nontender Extremities trace pedal edema Neurologic: Parkinsonian facies, right arm resting tremor, mild rigidity, no focal neurologic deficits evident otherwise Dermatologic: No rash or skin lesions Objective Labs Result Diagrams: 03/31/18 05:35 03/31/18 05:35 Labs: Laboratory Results - last 24 hr 03/30/18 03/31/18 03/31/18 09:25 05:35 05:35 WBC 7.0 RBC 3.43 L Hgb 11.6 L Hct 33.9 L MCV 98.8 MCH 33.9 MCHC 34.3 RDW 13.4 Plt Count 191 Neut % (Auto) 62.7 Lymph % (Auto) 19.3 L [place] % (Auto) 11.3 Eos % (Auto) 5.6 H Baso % (Auto) 1.1 Neut # (Auto) 4400 Sodium 137 Potassium 3.8 Chloride 94 L Carbon Dioxide 35 H BUN 33 H Creatinine 1.70 H Estimated GFR 39.0 L BUN/Creatinine Ratio 19.4 Glucose 109 Calcium 9.1 Procalcitonin 0.07 Assessment & Plan Plan: Assessment/Plan Narrative: 1. Acute systolic congestive heart failure exacerbation. Improved. Advance diuresis and monitor. 2. Possible pneumonia, healthcare associated. Continue Levaquin and follow cultures. 3. Pulmonary fibrosis. Suspect progressive underlying disease. 4. Acute on chronic hypoxic respiratory failure due to 1 and possibly 2. Continue supplemental oxygen. He is currently at 6 L of oxygen, though had been down to 2 L recently. Hopefully this will improve soon and he can go back to the long-term. 5. Parkinson's disease. Continue routine medication. 6. Orthostatic hypotension due to autonomic insufficiency from Parkinson's disease. This is been a careful balance of fluid status and over diuresis. Continue to monitor. We discussed that he may benefit from mostly being in a wheelchair at this point, given the severity of this condition and his risk of falling and recurrent syncopal events. Volume expanders are not a good option given his congestive heart failure. 7. Chronic kidney disease, stage III. Appears stable. 8. Code status: Full code. Consistent with recent admission. 9. Disposition: The patient is admitted to inpatient status as he will require at least 2 midnights of inpatient level care. Continue physical therapy
--- NOTE | 2018-03-31 12:00 | PT.IPTN ---
Current Diagnoses Acute and chronic respiratory failure with hypoxia (03/30/18) Physical Therapy Treatment Note M2 PT-IP Current Condition Start: 03/30/18 17:33 Freq: NEEDED Status: Active Protocol: Document 03/31/18 12:00 [facility] (Rec: 03/31/18 12:55 [facility] [id number]) Physical Therapy Current Condition Current Condition Evaluation Date 03/30/18 Treatment Diagnosis SOB, CHF; difficulty in walking Onset Date 03/30/18 Precautions Other Precautions monitor BP, O2 sat (currently @6 L O2) 03/31/18: Per Dr. Maldonado, limit to transfers only due to hypotension and O2 at this time (verbal on 03/31/18) M3 PT-IP Subjective Start: 03/30/18 17:33 Freq: NEEDED Status: Active Protocol: Document 03/31/18 12:00 [facility] (Rec: 03/31/18 12:55 [facility] [email or web address]) Subjective Physical Therapy Visit Type Type Treatment Note Visit Start Time 11:40 Visit Stop Time 12:00 Total Visit Minutes 20 Notes in room, Dr. Maldonado also in room during part of session . Number of OVER HAULER HELPER Visits 0 Physical Therapy Visit Comments Patient Comments Pt with mild dizziness initially upon sitting, then gone and no c/o of dizziness in standing. SOB with transfer . Therapy Pain Assessment Pain Present Pain Present Denied Pain M4 PT-IP Mobility and Gait Start: 03/30/18 17:33 Freq: NEEDED Status: Active Protocol: Document 03/31/18 12:00 [facility] (Rec: 03/31/18 12:55 [facility] [email or web address]) PT-Bed Mobility Assessment Supine to Sit Supine to Sit Standby Assistance Scooting Scooting to Edge of Bed Standby Assistance PT-Transfer Assessment Sit to and From Stand Sit to and from Stand Minimal Assistance 1 Person Assistance Use of Upper Extremities Equipment Transfer Assistive Device Gait Belt Front Wheeled Walker Transfers Transfer Destination Chair Transfer Technique Stand Step Pivot Transfer Ability Level of Assist Contact Guard Assistance 1 Person Assistance Use of Upper Extremities Comments Mobility Comments BP supine with HOB elevated: 119/65, MAP 83, ND 69 BP sitting on EOB (c/o dizziness): 96/53, MAP 68, ND 73 dizziness dissipated, Standing BP: 63/40, MAP 49, ND 74 Transfer to chair (no symptoms ) BP sitting in chair: 101/49, MAP 71, ND 78 O2 saturation on supplemental O2 (6-L): 93% initially, down to 80% with transfer, recovery in 3 min to >90%. Gait Assessment Comments Gait Comments MD recommended to not ambulate at this time. PT-Balance Assessment Sitting Balance and Reactions Static Sitting Balance Ability Good Dynamic Sitting Balance Ability Good Standing Balance and Reactions Static Standing Balance Ability Fair Dynamic Standing Balance Ability Fair Device Used FWW M5 PT-IP Objective Assessments Start: 03/30/18 17:33 Freq: NEEDED Status: Active Protocol: Document 03/30/18 16:48 AB (Rec: 03/30/18 17:51 AB [id number]) Orientation Orientation/Cognition Level of Alertness Alert Orientation Name Age Birthday Month Date Year Day of Week Place Situation Gross Range of Motion Lower Extremity ROM Assessment Left Impaired Impairments decrease L knee extension Strength Lower Extremity Strength Assessment Within Functional Limits M6 PT-IP Treatment Start: 03/30/18 17:33 Freq: NEEDED Status: Active Protocol: Document 03/31/18 12:00 [facility] (Rec: 03/31/18 12:55 [facility] [email or web address]) Physical Therapy Treatment Education Education Provided Safety M7 PT-IP Assessment and Plan Start: 03/30/18 17:33 Freq: NEEDED Status: Active Protocol: Document 03/31/18 12:00 [facility] (Rec: 03/31/18 12:55 [facility] [email or web address]) PT Summary Assessment and Plan Summary Progress Towards Goals Slow Progress due to Medical Issues Assessment Summary Pt limited to transfer only per MD due to hypotension response with mobility related to medical complications at this time. Pt's BP drops significantly, but only mild c /o dizziness which dissipated sitting on EOB x2 min. Pt very limited at this time with mobility and activity tolerance. Brief saturated, replaced with new one this session. Pt reports high urine frequency. The burden of care is too high for the pt's spouse to manage at home, he will require return to SNF rehab when medically stable. Goals Bed Mobility Goal Standby Assistance Transfer Goal Standby Assistance Gait Goal Standby Assistance Gait Distance 100 Other Goals up/down 6 steps with bilateral rails SBA; up/down 12 steps with R rail ascending SBA Days to Meet Goals 3 Frequency of Treatment Frequency Of Treatment Twice a Day Treatment Plan Other Recommendations and Next Treatment transfers, monitor O2 and BP Focus Recommendations To Nursing Amount of Assist Needed 1 Person Assist Discharge Recommendations PT Discharge Recommendations SNF Rehab
--- NOTE | 2018-03-31 13:55 | PT.IPTN ---
Current Diagnoses Acute and chronic respiratory failure with hypoxia (03/30/18) Physical Therapy Treatment Note M2 PT-IP Current Condition Start: 03/30/18 17:33 Freq: NEEDED Status: Active Protocol: Document 03/31/18 13:55 [facility] (Rec: 03/31/18 15:20 [facility] [id number]) Physical Therapy Current Condition Current Condition Evaluation Date 03/30/18 Treatment Diagnosis SOB, CHF; difficulty in walking Onset Date 03/30/18 Precautions Other Precautions monitor BP, O2 sat (currently @6 L O2) 03/31/18: Per Dr. Maldonado, limit to transfers only due to hypotension and O2 at this time (verbal on 03/31/18) M3 PT-IP Subjective Start: 03/30/18 17:33 Freq: NEEDED Status: Active Protocol: Document 03/31/18 13:55 [facility] (Rec: 03/31/18 15:20 [facility] [id number]) Subjective Physical Therapy Visit Type Type Treatment Note Visit Start Time 13:30 Visit Stop Time 13:55 Total Visit Minutes 25 Number of COPY CAMERA OPERATOR Visits 0 Physical Therapy Visit Comments Patient Comments Pt reports he wants to go to the [facility]. Therapy Pain Assessment Pain Present Pain Present Denied Pain M4 PT-IP Mobility and Gait Start: 03/30/18 17:33 Freq: NEEDED Status: Active Protocol: Document 03/31/18 13:55 [facility] (Rec: 03/31/18 15:20 [facility] [id number]) PT-Bed Mobility Assessment Sit to Supine Sit to Supine Minimal Assistance PT-Transfer Assessment Sit to and From Stand Sit to and from Stand Contact Guard Assistance 1 Person Assistance Use of Upper Extremities Equipment Transfer Assistive Device Gait Belt Front Wheeled Walker Transfers Transfer Destination Bed Bedside Commode Transfer Technique Stand Step Pivot Transfer Ability Level of Assist Contact Guard Assistance 1 Person Assistance Use of Upper Extremities Comments Mobility Comments Small, sliding transfer steps. No loss of balance. Pt fatigued after transfer, O2 saturation on 6-L decreased to 82%. Recovery time ~3 min to >90%, requires frequent cuing to breathe through nose. Gait Assessment Comments Gait Comments MD recommended to not ambulate at this time. M5 PT-IP Objective Assessments Start: 03/30/18 17:33 Freq: NEEDED Status: Active Protocol: Document 03/30/18 16:48 AB (Rec: 03/30/18 17:51 AB [id number]) Orientation Orientation/Cognition Level of Alertness Alert Orientation Name Age Birthday Month Date Year Day of Week Place Situation Gross Range of Motion Lower Extremity ROM Assessment Left Impaired Impairments decrease L knee extension Strength Lower Extremity Strength Assessment Within Functional Limits M6 PT-IP Treatment Start: 03/30/18 17:33 Freq: NEEDED Status: Active Protocol: Document 03/31/18 13:55 [facility] (Rec: 03/31/18 15:20 [facility] [id number]) Physical Therapy Treatment Education Education Provided Safety M7 PT-IP Assessment and Plan Start: 03/30/18 17:33 Freq: NEEDED Status: Active Protocol: Document 03/31/18 13:55 [facility] (Rec: 03/31/18 15:20 [facility] [id number]) PT Summary Assessment and Plan Summary Assessment Summary Pt fatigued after transfer from chair ->BSC ->bed, with decreased O2 saturation on 6-L O2. Pt without c/o dizziness, BP 131/66 after treatment. Pt demonstrates severely impaired activity tolerance, and will require SNF rehab upon d/c. Goals Bed Mobility Goal Standby Assistance Transfer Goal Standby Assistance Gait Goal Standby Assistance Gait Distance 100 Other Goals up/down 6 steps with bilateral rails SBA; up/down 12 steps with R rail ascending SBA Days to Meet Goals 3 Frequency of Treatment Frequency Of Treatment Twice a Day Treatment Plan Other Recommendations and Next Treatment transfers, monitor O2 and BP Focus Recommendations To Nursing Amount of Assist Needed 1 Person Assist Discharge Recommendations PT Discharge Recommendations SNF Rehab
[2018-03-31] MEDS: ASPIRIN EC 81 MG TABLET PO (18:04)
[2018-03-31] MEDS: ATORVASTATIN 20 MG TABLET 40 MG PO (18:05)
[2018-03-31] MEDS: levoFLOXacin 250 MG TABLET PO (21:54)
[2018-03-31] MEDS: BISACODYL 5 MG TABLET PO (21:55)
[2018-04-01] VITALS (14 sets, daily range): BP systolic 80–143; BP diastolic 40–67; PULSE 71–102; RESP 18–31; TEMP 36.3–37.1; O2SAT 77–99
[2018-04-01] MEDS: FUROSEMIDE 40 MG/4 ML VIAL IV (01:23)
[2018-04-01 05:38] LABS: Add Manual Diff / Slide Review NO; Basophils Percent Auto 0.6 % (0-2); Eosinophils Percent Auto 4.5 % (2-4); Hematocrit 36.6 % (41-53); Hemoglobin 12.4 g/dL (13.5-17.5); Lymphocytes Percent Auto 17.8 % (25-40); Mean Corpuscular HGB Conc 33.8 % (30-36); Mean Corpuscular Hemoglobin 33.1 PG (26-34); Mean Corpuscular Volume 97.9 fL (80-100); Neutrophils Absolute Auto 5200 /uL (3000-5900); Neutrophils Percent Auto 65.1 % (50-75); Platelet Count 214 X10^3/uL (150-400); Red Blood Cell Count 3.74 X10^6/uL (4.5-5.9); Red Cell Distribution Width 13.1 % (11.6-14.8)
[2018-04-01 05:50] LABS: Blood Urea Nitrogen 46 mg/dL (9-20); Calcium 9.1 mg/dL (8.4-10.2); Carbon Dioxide 37 mmol/L (22-32); Chloride 91 mmol/L (98-107); Estimated Glomerular Filt Rate 32.3 mL/min (>60); Glucose 124 mg/dL (80-110); HEMOLYSIS < 15 (0-50); Potassium 3.7 mmol/L (3.4-5.1); Sodium 137 mmol/L (137-145)
--- NOTE | 2018-04-01 09:00 | PT.IPTN ---
Current Diagnoses Acute and chronic respiratory failure with hypoxia (03/30/18) Physical Therapy Treatment Note M2 PT-IP Current Condition Start: 03/30/18 17:33 Freq: NEEDED Status: Active Protocol: Document 04/01/18 09:00 [facility] (Rec: 04/01/18 13:51 [facility] [id number]) Physical Therapy Current Condition Current Condition Evaluation Date 03/30/18 Treatment Diagnosis SOB, CHF; difficulty in walking Onset Date 03/30/18 Precautions Other Precautions monitor BP, O2 sat (currently @6 L O2) 03/31/18: Per Dr. Maldonado, limit to transfers only due to hypotension and O2 at this time (verbal on 03/31/18) M3 PT-IP Subjective Start: 03/30/18 17:33 Freq: NEEDED Status: Active Protocol: Document 04/01/18 09:00 [facility] (Rec: 04/01/18 13:51 [facility] [email or web address]) Subjective Physical Therapy Visit Type Type Treatment Note Visit Start Time 08:35 Visit Stop Time 09:00 Total Visit Minutes 25 Number of OIL BOILER Visits 0 Therapy Pain Assessment Pain Present Pain Present Denied Pain M4 PT-IP Mobility and Gait Start: 03/30/18 17:33 Freq: NEEDED Status: Active Protocol: Document 04/01/18 09:00 [facility] (Rec: 04/01/18 13:51 [facility] [id number]) PT-Bed Mobility Assessment Supine to Sit Supine to Sit Standby Assistance Head of Bed Elevated Bedrails Scooting Scooting to Edge of Bed Standby Assistance PT-Transfer Assessment Sit to and From Stand Sit to and from Stand Contact Guard Assistance 1 Person Assistance Use of Upper Extremities Equipment Transfer Assistive Device Gait Belt Front Wheeled Walker Transfers Transfer Destination Chair Bedside Commode Transfer Technique Stand Step Pivot Transfer Ability Level of Assist Contact Guard Assistance 1 Person Assistance Use of Upper Extremities Comments Mobility Comments Pt stood after commode to be wiped for about 1 min. Pt O2 dropped during this to 90% but inc back to 94% which is what it was most of the session after about 2 min. Supine BP: 124/60; seated 82/48 with dizziness, after about 3 min of sitting no dizziness and BP 105/68, 80/42 on commode after transfer with no dizziness with inc to 99/40 after 3 min. After transfer to chair BP 91/58 Gait Assessment Comments Gait Comments Dec activity tolerance so pt unable to amb and per last note MD recommended not amb yesterday M5 PT-IP Objective Assessments Start: 03/30/18 17:33 Freq: NEEDED Status: Active Protocol: Document 03/30/18 16:48 AB (Rec: 03/30/18 17:51 AB [id number]) Orientation Orientation/Cognition Level of Alertness Alert Orientation Name Age Birthday Month Date Year Day of Week Place Situation Gross Range of Motion Lower Extremity ROM Assessment Left Impaired Impairments decrease L knee extension Strength Lower Extremity Strength Assessment Within Functional Limits M6 PT-IP Treatment Start: 03/30/18 17:33 Freq: NEEDED Status: Active Protocol: Document 04/01/18 09:00 [facility] (Rec: 04/01/18 13:51 [facility] [id number]) Physical Therapy Treatment Education Education Provided Safety M7 PT-IP Assessment and Plan Start: 03/30/18 17:33 Freq: NEEDED Status: Active Protocol: Document 04/01/18 09:00 [facility] (Rec: 04/01/18 13:51 [facility] [id number]) PT Summary Assessment and Plan Summary Progress Towards Goals Slow Progress due to Medical Issues Assessment Summary pt fatigued with transfers and was SOB with mobility, but did not dec below 90% on 6.5 L O2 today during mobiliy. Goals Bed Mobility Goal Standby Assistance Transfer Goal Standby Assistance Gait Goal Standby Assistance Gait Distance 100 Other Goals up/down 6 steps with bilateral rails SBA; up/down 12 steps with R rail ascending SBA Days to Meet Goals 3 Frequency of Treatment Frequency Of Treatment Twice a Day Treatment Plan Other Recommendations and Next Treatment transfers, monitor O2 and BP; Focus seated exercises Recommendations To Nursing Amount of Assist Needed 1 Person Assist Discharge Recommendations PT Discharge Recommendations SNF Rehab
--- NOTE | 2018-04-01 11:51 | P.PN_ITS ---
Subjective Date Patient Seen: 04/01/18 Time Patient Seen: 11:48 Interval history: He seems to be continuing to have weakness and has had some shortness of breath he complains of some flank pain earlier today on the right it is now improved Exam Vital Signs (past 8 hours): - 04/01/18 05:00 04/01/18 07:44 04/01/18 08:43 Temperature 97.4 F L Pulse Rate 72 83 Respiratory Rate 18 Blood Pressure 100/43 L 80/42 L Pulse Oximetry 93 96 04/01/18 08:47 04/01/18 08:50 04/01/18 08:54 Temperature 98.1 F Pulse Rate 98 H 76 92 H Respiratory Rate 22 Blood Pressure 99/40 L 108/56 L 94/58 L Pulse Oximetry 93 04/01/18 11:26 Temperature Pulse Rate Respiratory Rate Blood Pressure Pulse Oximetry 77 L Fraction of Inspired Oxygen 50 Oxygen Delivery Method Room Air Oxygen Flow Rate 6 Narrative Exam Narrative: Resting comfortably he is having some tachypnea even at rest wearing the oxygen 6 L Oropharynx clear Neck is supple Lungs diffuse crackles Heart regular rhythm Abdomen soft nontender Lower extremities no edema Neuro exam resting tremor noted some increased muscle tone consistent with his Parkinson's Skin warm and dry Objective Labs Result Diagrams: 04/01/18 05:07 04/01/18 05:07 Labs: Laboratory Results - last 24 hr 04/01/18 04/01/18 05:07 05:07 WBC 8.0 RBC 3.74 L Hgb 12.4 L Hct 36.6 L MCV 97.9 MCH 33.1 MCHC 33.8 RDW 13.1 Plt Count 214 Neut % (Auto) 65.1 Lymph % (Auto) 17.8 L [place] % (Auto) 12.0 Eos % (Auto) 4.5 H Baso % (Auto) 0.6 Neut # (Auto) 5200 Sodium 137 Potassium 3.7 Chloride 91 L Carbon Dioxide 37 H BUN 46 H Creatinine 2.00 H Estimated GFR 32.3 L BUN/Creatinine Ratio 23.0 H Glucose 124 H Calcium 9.1 Assessment & Plan Plan: Assessment/Plan Narrative: 1. Acute systolic congestive heart failure exacerbation. Improved. Switched to oral Lasix his blood pressure is a little on the low side at this point. His BNP on admission was just mildly elevated. 2. Possible pneumonia, healthcare associated. Continue Levaquin and follow cultures. 3. Pulmonary fibrosis. Suspect progressive underlying disease. 4. Acute on chronic hypoxic respiratory failure due to 1 and possibly 2. Continue supplemental oxygen. He is currently at 6 L of oxygen, he had been on about 3 L at the long-term. Hopefully this will improve soon and he can go back to the long-term. 5. Parkinson's disease. Continue routine medication. 6. Orthostatic hypotension due to autonomic insufficiency from Parkinson's disease. This is been a careful balance of fluid status and over diuresis. Continue to monitor. We discussed that he may benefit from mostly being in a wheelchair at this point, given the severity of this condition and his risk of falling and recurrent syncopal events. Volume expanders are not a good option given his congestive heart failure. 7. Chronic kidney disease, stage III. Appears stable. 8. Code status: Full code. Consistent with recent admission. 9. Disposition: The patient is admitted to inpatient status as he will require at least 2 midnights of inpatient level care. Continue physical therapy
[2018-04-01] MEDS: PANTOPRAZOLE 20 MG TABLET PO (12:26)
[2018-04-01] MEDS: FUROSEMIDE 20 MG TABLET PO (12:26)
[2018-04-01] MEDS: SODIUM CHLORIDE 0.9% FLUSH 10 ML IV ×2 (12:26→21:05)
[2018-04-01] MEDS: CYCLOBENZAPRINE 5 MG TABLET PO (12:33)
[2018-04-01] MEDS: ATORVASTATIN 20 MG TABLET 40 MG PO (17:40)
[2018-04-01] MEDS: ASPIRIN EC 81 MG TABLET PO (17:40)
[2018-04-01] MEDS: HEPARIN 5,000 UNIT/ML VIAL 5000 UNIT SUBCUT (21:05)
[2018-04-01] MEDS: METOPROLOL 25 MG TABLET PO (21:05)
[2018-04-01] MEDS: BISACODYL 5 MG TABLET PO (21:05)
[2018-04-01] MEDS: levoFLOXacin 250 MG TABLET PO (21:06)
[2018-04-02] VITALS (13 sets, daily range): BP systolic 112–156; BP diastolic 53–68; PULSE 69–85; RESP 16–18; TEMP 36.6–36.8; O2SAT 88–99
--- NOTE | 2018-04-02 07:20 | PC.NURSE ---
Assumed care of pt form outgoing shift at 2300, 7-16. Pt asleep at this time. pt rotated every 2 ours. barrier cream applied to scrotum and red spots around bottom and thighs. Pt incontinent. fills brief. alert and oriented. denies pain. belongings and call light within reach. will continue to monitor pt for safety. bed alarm on. side rails upx3.
[2018-04-02] MEDS: FUROSEMIDE 20 MG TABLET PO (08:57)
[2018-04-02] MEDS: HEPARIN 5,000 UNIT/ML VIAL 5000 UNIT SUBCUT ×2 (08:58→20:53)
[2018-04-02] MEDS: SODIUM CHLORIDE 0.9% FLUSH 10 ML IV ×2 (08:58→20:53)
[2018-04-02] MEDS: PANTOPRAZOLE 20 MG TABLET PO (08:58)
[2018-04-02] MEDS: METOPROLOL 25 MG TABLET PO ×2 (08:58→20:53)
--- NOTE | 2018-04-02 10:21 | PC.NURSE ---
Pt alert, oriented, denies pain, states I feel pretty good today. LS coarse with crackles in bilat bases. Sats on 4.5L 95%. Pt bathed and positioned to left side.
--- NOTE | 2018-04-02 11:10 | PT.IPTN ---
Current Diagnoses Acute and chronic respiratory failure with hypoxia (03/30/18) Physical Therapy Treatment Note M2 PT-IP Current Condition Start: 03/30/18 17:33 Freq: NEEDED Status: Active Protocol: Document 04/01/18 09:00 [facility] (Rec: 04/01/18 13:51 [facility] [id number]) Physical Therapy Current Condition Current Condition Evaluation Date 03/30/18 Treatment Diagnosis SOB, CHF; difficulty in walking Onset Date 03/30/18 Precautions Other Precautions monitor BP, O2 sat (currently @6 L O2) 03/31/18: Per Dr. Maldonado, limit to transfers only due to hypotension and O2 at this time (verbal on 03/31/18) M3 PT-IP Subjective Start: 03/30/18 17:33 Freq: NEEDED Status: Active Protocol: Document 04/02/18 11:05 [facility] (Rec: 04/02/18 12:20 [facility] [id number]) Subjective Physical Therapy Visit Type Type Treatment Note Visit Start Time 10:40 Visit Stop Time 11:05 Total Visit Minutes 25 Number of TAXATION CONSULTANT Visits 1 Physical Therapy Visit Comments Patient Comments Pt states he is willing to work with PT. Therapy Pain Assessment Pain When Pain Assessed At Rest Pain Present Pain Present Denied Pain M4 PT-IP Mobility and Gait Start: 03/30/18 17:33 Freq: NEEDED Status: Active Protocol: Document 04/02/18 11:05 [facility] (Rec: 04/02/18 12:20 [facility] [id number]) PT-Bed Mobility Assessment Supine to Sit Supine to Sit Minimal Assistance 1 Person Assistance Head of Bed Elevated Bedrails Scooting Scooting to Edge of Bed Minimal Assistance PT-Transfer Assessment Sit to and From Stand Sit to and from Stand Contact Guard Assistance 1 Person Assistance Use of Upper Extremities Equipment Transfer Assistive Device Gait Belt Front Wheeled Walker Transfers Transfer Destination Chair Transfer Technique Stand Step Pivot Transfer Ability Level of Assist Contact Guard Assistance 1 Person Assistance Use of Upper Extremities Comments Mobility Comments O2 at rest 87% on 4.5 L, with activity 84%-93% on 5.5 L Gait Assessment Comments Gait Comments MD recommended to not ambulate at this time. M5 PT-IP Objective Assessments Start: 03/30/18 17:33 Freq: NEEDED Status: Active Protocol: Document 03/30/18 16:48 AB (Rec: 07/14/18 17:51 AB [id number]) Orientation Orientation/Cognition Level of Alertness Alert Orientation Name Age Birthday Month Date Year Day of Week Place Situation Gross Range of Motion Lower Extremity ROM Assessment Left Impaired Impairments decrease L knee extension Strength Lower Extremity Strength Assessment Within Functional Limits M6 PT-IP Treatment Start: 03/30/18 17:33 Freq: NEEDED Status: Active Protocol: Document 04/01/18 09:00 [facility] (Rec: 04/01/18 13:51 [facility] [id number]) Physical Therapy Treatment Education Education Provided Safety M7 PT-IP Assessment and Plan Start: 03/30/18 17:33 Freq: NEEDED Status: Active Protocol: Document 04/02/18 11:05 [facility] (Rec: 04/02/18 12:20 [facility] [id number]) PT Summary Assessment and Plan Summary Assessment Summary Pt need rest breaks with activity. He needed increase in assistance with bed mobility. Frequency of Treatment Frequency Of Treatment Twice a Day Treatment Plan Other Recommendations and Next Treatment transfers, monitor O2 and BP; Focus seated exercises Recommendations To Nursing Amount of Assist Needed 1 Person Assist Discharge Recommendations PT Discharge Recommendations SNF Rehab
--- NOTE | 2018-04-02 11:24 | PC.NURSE ---
Addendum entered by Mila Kimbrough R.N. 04/02/18 14:30: Flexeril given at 1300 for c/o of right lower back pain. When reassessed pt reports no improvement in pain. Dr Khalil aware and new orders received. 50mg Tramadol given. Sats on 5L 97% decreased o2 to 4L Original Note: Pt up chair with therapy,c/o right lower back pain, refused flexeril at this time, reports the pain is ok now while sitting in chair, warm blanket placed to right lower back. Increased o2 to 5L sats 90-91%
--- NOTE | 2018-04-02 11:37 | PM.PN.1 ---
Subjective Date Patient Seen: 04/02/18 Time Patient Seen: 11:37 Interval history: Feeling stronger today Exam Vital Signs (past 8 hours): - 04/02/18 05:47 04/02/18 07:30 04/02/18 09:10 Temperature 98.1 F 98.3 F Pulse Rate 69 75 Respiratory Rate 16 17 Blood Pressure 116/53 L 112/57 L Pulse Oximetry 97 97 95 04/02/18 10:45 Temperature 98.2 F Pulse Rate 73 Respiratory Rate 18 Blood Pressure 156/67 H Pulse Oximetry 89 L Fraction of Inspired Oxygen 50 Oxygen Delivery Method High Flow Nasal Cannula Oxygen Flow Rate 4.5 Narrative Exam Narrative: Sitting up in a chair looking better in general more energetic HEENT exam unremarkable Neck is supple no JVD Lungs diffuse crackles Heart regular rhythm Abdomen soft and nontender Lower extremities trace edema Neuro exam awake alert resting tremor noted increased muscle tone noted no change from previous Skin warm and dry Objective Labs Result Diagrams: 04/01/18 05:07 04/01/18 05:07 Assessment & Plan Plan: Assessment/Plan Narrative: 1. Acute systolic congestive heart failure exacerbation. Improved. Switched to oral Lasix his blood pressure is a little on the low side at this point. His BNP on admission was just mildly elevated. Blood pressure better today. Does have a history of chronic systolic failure with ejection fraction of 40% from echo done last month 2. Possible pneumonia, healthcare associated. Continue Levaquin and follow cultures. Chest x-ray showed pneumonia. Consider CT scan for not seeing improvement 3. Pulmonary fibrosis. Suspect progressive underlying disease.. I have asked to get his records from his most recent pulmonology appointment which was about a week of ago 4. Acute on chronic hypoxic respiratory failure due to 1 and possibly 2. Continue supplemental oxygen. He is currently at 5 L of oxygen, he had been on about 3 L at the detention. Hopefully this will improve soon and he can go back to the detention. 5. Parkinson's disease. Continue routine medication. 6. Orthostatic hypotension due to autonomic insufficiency from Parkinson's disease. This is been a careful balance of fluid status and over diuresis. Continue to monitor. We discussed that he may benefit from mostly being in a wheelchair at this point, given the severity of this condition and his risk of falling and recurrent syncopal events. Volume expanders are not a good option given his congestive heart failure. 7. Chronic kidney disease, stage III. Appears stable. 8. Code status: Full code. Consistent with recent admission. 9. Disposition: The patient is admitted to inpatient status as he will require at least 2 midnights of inpatient level care. Continue physical therapy
[2018-04-02] MEDS: CYCLOBENZAPRINE 5 MG TABLET PO (12:55)
[2018-04-02] MEDS: TRAMADOL 50 MG TABLET PO (14:29)
[2018-04-02 15:08] LABS: Erythrocyte Sedimentation Rate 57 MM/HR (0-15)
--- NOTE | 2018-04-02 16:05 | PT.IPTN ---
Current Diagnoses Acute and chronic respiratory failure with hypoxia (03/30/18) Physical Therapy Treatment Note M2 PT-IP Current Condition Start: 03/30/18 17:33 Freq: NEEDED Status: Active Protocol: Document 04/01/18 09:00 [facility] (Rec: 04/01/18 13:51 [facility] [email or web address]) Physical Therapy Current Condition Current Condition Evaluation Date 03/30/18 Treatment Diagnosis SOB, CHF; difficulty in walking Onset Date 03/30/18 Precautions Other Precautions monitor BP, O2 sat (currently @6 L O2) 03/31/18: Per Dr. Maldonado, limit to transfers only due to hypotension and O2 at this time (verbal on 03/31/18) M3 PT-IP Subjective Start: 03/30/18 17:33 Freq: NEEDED Status: Active Protocol: Document 04/02/18 16:05 [facility] (Rec: 04/02/18 17:06 GGD [id number]) Subjective Physical Therapy Visit Type Type Treatment Note Visit Start Time 15:40 Visit Stop Time 16:05 Total Visit Minutes 25 Number of GANG PLANK WORKMAN Visits 2 Physical Therapy Visit Comments Patient Comments Pt willing to try to sit up in the chair. He states that he is tired. Therapy Pain Assessment Pain Present Pain Present Denied Pain M4 PT-IP Mobility and Gait Start: 03/30/18 17:33 Freq: NEEDED Status: Active Protocol: Document 04/02/18 16:05 [facility] (Rec: 04/02/18 17:06 GGD [id number]) PT-Bed Mobility Assessment Supine to Sit Supine to Sit Minimal Assistance 1 Person Assistance Head of Bed Elevated Bedrails Sit to Supine Sit to Supine Moderate Assistance 1 Person Assistance Bedrails Scooting Scooting to Edge of Bed Minimal Assistance PT-Transfer Assessment Sit to and From Stand Sit to and from Stand Contact Guard Assistance 1 Person Assistance Use of Upper Extremities Equipment Transfer Assistive Device Gait Belt Front Wheeled Walker Comments Mobility Comments Unable to transfer Pt had lightediness in standing. O2 at rest 92% on 4.5 L with activity 78%. Returned to 902% after 4 min. Gait Assessment Comments Gait Comments MD recommended to not ambulate at this time. M5 PT-IP Objective Assessments Start: 03/30/18 17:33 Freq: NEEDED Status: Active Protocol: Document 03/30/18 16:48 AB (Rec: 03/30/18 17:51 AB [id number]) Orientation Orientation/Cognition Level of Alertness Alert Orientation Name Age Birthday Month Date Year Day of Week Place Situation Gross Range of Motion Lower Extremity ROM Assessment Left Impaired Impairments decrease L knee extension Strength Lower Extremity Strength Assessment Within Functional Limits M6 PT-IP Treatment Start: 03/30/18 17:33 Freq: NEEDED Status: Active Protocol: Document 04/01/18 09:00 [facility] (Rec: 04/01/18 13:51 [facility] [email or web address]) Physical Therapy Treatment Education Education Provided Safety M7 PT-IP Assessment and Plan Start: 03/30/18 17:33 Freq: NEEDED Status: Active Protocol: Document 04/02/18 16:05 [facility] (Rec: 04/02/18 17:06 GGD [id number]) PT Summary Assessment and Plan Summary Assessment Summary Pt had decrease tolerance to activity. He had decrease O2 sats with sit to stand. He did need a seated rest break after bed mobility. Frequency of Treatment Frequency Of Treatment Once a Day Treatment Plan Other Recommendations and Next Treatment transfers, monitor O2 and BP; Focus seated exercises Recommendations To Nursing Amount of Assist Needed 1 Person Assist Discharge Recommendations PT Discharge Recommendations SNF Rehab
[2018-04-02] MEDS: ASPIRIN EC 81 MG TABLET PO (18:41)
[2018-04-02] MEDS: ATORVASTATIN 20 MG TABLET 40 MG PO (18:42)
[2018-04-02] MEDS: BISACODYL 5 MG TABLET PO (20:52)
[2018-04-02] MEDS: levoFLOXacin 250 MG TABLET PO (20:53)
--- NOTE | 2018-04-02 22:10 | PC.NURSE ---
PATIENT IS DOING AND FEELING BETTER TODAY HE STATES, O2 IS DOWN T 4-4.5L FOR THE SHIFT.GOOD APPETITE TODAY,WITHOUT NAUSEA.DENIES PAIN,TRAMADOL WAS GIVEN ON DAY SHIFT.
[2018-04-03] VITALS (12 sets, daily range): BP systolic 115–140; BP diastolic 60–72; PULSE 70–82; RESP 17–26; TEMP 36.4–37.3; O2SAT 73–97
--- NOTE | 2018-04-03 02:55 | PC.NURSE ---
Addendum entered by Jacqui Moraes R.N. 04/03/18 07:18: checked on pt and he stated he was ready for breakfast. he had a few snacks through the night. on 4L NC, humidified and tolerating. Original Note: Addendum entered by Jacqui Moraes R.N. 04/03/18 02:56: Pt states he feels pretty good. pt calls when wet. belongings and gillian light within reach. bed alarm on. will continue to monitor pt for safety. Original Note: Assumed care of pt from outgoing shift at 2300, 7-17. Pt asleep at this time. pt rotated every 2 hours. barrier cream applied to scrotum and red spots around bottom and thighs. Pt incontinent. alert and oriented. denies pain. blankets removed as pt felt warm. pt rotated to left side, pillows used to prop pt. belongings and call light within reach. will continue to monitor pt for safety. bed alarm on. side rails upx3.
[2018-04-03] MEDS: HEPARIN 5,000 UNIT/ML VIAL 5000 UNIT SUBCUT ×2 (08:54→21:03)
[2018-04-03] MEDS: FUROSEMIDE 20 MG TABLET PO (08:54)
[2018-04-03] MEDS: METOPROLOL 25 MG TABLET PO ×2 (08:54→21:03)
[2018-04-03] MEDS: PANTOPRAZOLE 20 MG TABLET PO (08:55)
[2018-04-03] MEDS: SODIUM CHLORIDE 0.9% FLUSH 10 ML IV ×2 (08:56→21:04)
[2018-04-03] MEDS: FLUTICASONE 120 SPRAY/16 GM SPRAY.SUSP NASAL (08:56)
--- NOTE | 2018-04-03 12:15 | PM.PN.1 ---
Subjective Date Patient Seen: 04/03/18 Time Patient Seen: 12:16 Interval history: He is a little bit worn out this morning he recently just got back to bed after being up all morning still gets very short of breath with minimal exertion Exam Vital Signs (past 8 hours): - 04/03/18 06:05 04/03/18 07:40 04/03/18 08:30 Temperature 98.2 F 98.8 F Pulse Rate 74 75 Respiratory Rate 20 17 Blood Pressure 120/60 126/63 H Pulse Oximetry 94 95 95 04/03/18 09:45 04/03/18 10:00 04/03/18 11:00 Temperature 98.2 F Pulse Rate 77 Respiratory Rate 19 Blood Pressure 140/72 H Pulse Oximetry 73 L 92 94 Fraction of Inspired Oxygen 40 Oxygen Delivery Method Nasal Cannula Oxygen Flow Rate 4.5 Narrative Exam Narrative: Resting quietly no respiratory distress HEENT exam unremarkable Oropharynx clear Neck no JVD noted Lungs diffuse crackles Heart regular rhythm Abdomen soft nontender no masses Lower extremities trace edema Neuro exam awake alert resting tremor noted some mild increased muscle tone noted no focal deficits Skin warm and dry Objective Labs Result Diagrams: 04/01/18 05:07 04/01/18 05:07 Labs: Laboratory Results - last 24 hr 04/02/18 14:10 ESR 57 H Assessment & Plan Plan: Assessment/Plan Narrative: 1. Acute systolic congestive heart failure exacerbation. Improved. Switched to oral Lasix his blood pressure is a little on the low side at this point. His BNP on admission was just mildly elevated. Blood pressure better today. Does have a history of chronic systolic failure with ejection fraction of 40% from echo done last month. He seems to be euvolemic now 2. Acute bacterial pneumonia, healthcare associated. Continue Levaquin and follow cultures. Chest x-ray showed pneumonia. Consider CT scan for not seeing improvement. I think he has had clinical improvement is on less oxygen now. He is his ESR is elevated suggesting an underlying infection 3. Pulmonary fibrosis. Suspect progressive underlying disease.. I have asked to get his records from his most recent pulmonology appointment which was about a week of ago 4. Acute on chronic hypoxic respiratory failure due to 1 and possibly 2. Continue supplemental oxygen. He is currently at 4.5 L of oxygen, he had been on about 3 L at the residential. Hopefully this will improve soon and he can go back to the residential. 5. Parkinson's disease. He was on amantadine but this was stopped by his economic development coordinator. 6. Orthostatic hypotension due to autonomic insufficiency from Parkinson's disease. This is been a careful balance of fluid status and over diuresis. Continue to monitor. We discussed that he may benefit from mostly being in a wheelchair at this point, given the severity of this condition and his risk of falling and recurrent syncopal events. Volume expanders are not a good option given his congestive heart failure. 7. Chronic kidney disease, stage III. Appears stable. 8. Code status: Full code. Consistent with recent admission. 9. Disposition: The patient is admitted to inpatient status as he will require at least 2 midnights of inpatient level care. Continue physical therapy
--- NOTE | 2018-04-03 12:19 | P.PN_ITS ---
Subjective Date Patient Seen: 04/03/18 Time Patient Seen: 12:16 Interval history: He is a little bit worn out this morning he recently just got back to bed after being up all morning still gets very short of breath with minimal exertion Exam Vital Signs (past 8 hours): - 04/03/18 06:05 04/03/18 07:40 04/03/18 08:30 Temperature 98.2 F 98.8 F Pulse Rate 74 75 Respiratory Rate 20 17 Blood Pressure 120/60 126/63 H Pulse Oximetry 94 95 95 04/03/18 09:45 04/03/18 10:00 04/03/18 11:00 Temperature 98.2 F Pulse Rate 77 Respiratory Rate 19 Blood Pressure 140/72 H Pulse Oximetry 73 L 92 94 Fraction of Inspired Oxygen 40 Oxygen Delivery Method Nasal Cannula Oxygen Flow Rate 4.5 Narrative Exam Narrative: Resting quietly no respiratory distress HEENT exam unremarkable Oropharynx clear Neck no JVD noted Lungs diffuse crackles Heart regular rhythm Abdomen soft nontender no masses Lower extremities trace edema Neuro exam awake alert resting tremor noted some mild increased muscle tone noted no focal deficits Skin warm and dry Objective Labs Result Diagrams: 04/01/18 05:07 04/01/18 05:07 Labs: Laboratory Results - last 24 hr 04/02/18 14:10 ESR 57 H Assessment & Plan Plan: Assessment/Plan Narrative: 1. Acute systolic congestive heart failure exacerbation. Improved. Switched to oral Lasix his blood pressure is a little on the low side at this point. His BNP on admission was just mildly elevated. Blood pressure better today. Does have a history of chronic systolic failure with ejection fraction of 40% from echo done last month. He seems to be euvolemic now 2. Acute bacterial pneumonia, healthcare associated. Continue Levaquin and follow cultures. Chest x-ray showed pneumonia. Consider CT scan for not seeing improvement. I think he has had clinical improvement is on less oxygen now. He is his ESR is elevated suggesting an underlying infection 3. Pulmonary fibrosis. Suspect progressive underlying disease.. I have asked to get his records from his most recent pulmonology appointment which was about a week of ago 4. Acute on chronic hypoxic respiratory failure due to 1 and possibly 2. Continue supplemental oxygen. He is currently at 4.5 L of oxygen, he had been on about 3 L at the custodial. Hopefully this will improve soon and he can go back to the custodial. 5. Parkinson's disease. He was on amantadine but this was stopped by his screenplay writer. 6. Orthostatic hypotension due to autonomic insufficiency from Parkinson's disease. This is been a careful balance of fluid status and over diuresis. Continue to monitor. We discussed that he may benefit from mostly being in a wheelchair at this point, given the severity of this condition and his risk of falling and recurrent syncopal events. Volume expanders are not a good option given his congestive heart failure. 7. Chronic kidney disease, stage III. Appears stable. 8. Code status: Full code. Consistent with recent admission. 9. Disposition: The patient is admitted to inpatient status as he will require at least 2 midnights of inpatient level care. Continue physical therapy
--- NOTE | 2018-04-03 15:03 | PC.NURSE ---
Resp: SI'm breathing better now. Pt reporting his chest felt tight this am and he couldn't catch his breath. O2 on at 3.5L and sats were 87%. O2 increased to 6L to obtain sat of 91-93%. Chest tightness went away and pt reporting he can breath easier. Did contact RT but they needed order for treatment and eval and this was done by MD Khalil. They came and saw pt. There is not much more they can do then titrate his O2 as needed and nursing can do this as well. Pt denied the chest tightness he felt this morning was chest pain. Resting comfortably at the moment. Cont w/poc.
--- NOTE | 2018-04-03 15:10 | PT.IPTN ---
Current Diagnoses Acute and chronic respiratory failure with hypoxia (03/30/18) Physical Therapy Treatment Note M2 PT-IP Current Condition Start: 03/30/18 17:33 Freq: NEEDED Status: Active Protocol: Document 04/01/18 09:00 [facility] (Rec: 04/01/18 13:51 [facility] [id number]) Physical Therapy Current Condition Current Condition Evaluation Date 03/30/18 Treatment Diagnosis SOB, CHF; difficulty in walking Onset Date 03/30/18 Precautions Other Precautions monitor BP, O2 sat (currently @6 L O2) 03/31/18: Per Dr. Maldonado, limit to transfers only due to hypotension and O2 at this time (verbal on 03/31/18) M3 PT-IP Subjective Start: 03/30/18 17:33 Freq: NEEDED Status: Active Protocol: Document 04/03/18 15:10 AB (Rec: 04/03/18 16:52 [facility] [email or web address]) Subjective Physical Therapy Visit Type Type Treatment Note Visit Start Time 15:10 Visit Stop Time 15:35 Total Visit Minutes 25 Number of TECHNICIAN BIOLOGICAL HEALTH Visits 0 Physical Therapy Visit Comments Patient Comments pt agreeable to do therapy M4 PT-IP Mobility and Gait Start: 03/30/18 17:33 Freq: NEEDED Status: Active Protocol: Document 04/03/18 15:10 AB (Rec: 04/03/18 16:52 [facility] [email or web address]) PT-Bed Mobility Assessment Supine to Sit Supine to Sit Maximum Assistance Sit to Supine Sit to Supine Moderate Assistance PT-Transfer Assessment Sit to and From Stand Sit to and from Stand Maximum Assistance 1 Person Assistance Use of Upper Extremities Equipment Transfer Assistive Device Gait Belt Front Wheeled Walker Comments Mobility Comments BP and O2 sat monitored. pt initially at 4 1/2 L O2 when PT came to check on pt. Nurse came in and stated that pt has to be on 6L/min. supine: BP: 124/62 O2 sat 97% AL 78 pt completed bed mobility supine to sit max A and cues and required increase time to complete. sitting on EOB: BP: 103/56 AL 87 O2 sat decreased to 84-86 % pt cued to do deep breathing. O2 sat increased to 91% after ~ 30 sec. pt completed sit to stand max A and cues. standing BP: 83/35 AL 95 . pt c/o dizziness but wants to stand for a few more seconds and tolerated ~ 1 min of standing. instructed pt to sit down. BP in sitting after ~ 1min : 114/60 AL 89 O2 sat after standing decreased down to 81% and took >1 min to go up to 88%. pt assisted to supine in bed requiring mod A and cues. call light and table placed within reach. M5 PT-IP Objective Assessments Start: 03/30/18 17:33 Freq: NEEDED Status: Active Protocol: Document 03/30/18 16:48 AB (Rec: 03/30/18 17:51 AB [id number]) Orientation Orientation/Cognition Level of Alertness Alert Orientation Name Age Birthday Month Date Year Day of Week Place Situation Gross Range of Motion Lower Extremity ROM Assessment Left Impaired Impairments decrease L knee extension Strength Lower Extremity Strength Assessment Within Functional Limits M6 PT-IP Treatment Start: 03/30/18 17:33 Freq: NEEDED Status: Active Protocol: Document 04/01/18 09:00 [facility] (Rec: 04/01/18 13:51 [facility] [email or web address]) Physical Therapy Treatment Education Education Provided Safety M7 PT-IP Assessment and Plan Start: 03/30/18 17:33 Freq: NEEDED Status: Active Protocol: Document 04/03/18 15:10 [facility] (Rec: 04/03/18 16:52 [facility] [email or web address]) PT Summary Assessment and Plan Potential Rehabilitation Potential Fair Summary Impairments Strength Balance Bed Mobility Transfers Gait Activity Tolerance Progress Towards Goals Slow Progress due to Medical Issues Assessment Summary pt continues to have orthostatic hypotension and decrease in O2 sat with activity. pt limited with mobility and has decrease activity tolerance. pt will require SNF rehab. Goals Bed Mobility Goal Standby Assistance Transfer Goal Standby Assistance Gait Goal Standby Assistance Gait Distance 100 Other Goals up/down 6 steps with bilateral rails SBA; up/down 12 steps with R rail ascending SBA Days to Meet Goals 3 Frequency of Treatment Frequency Of Treatment Once a Day Treatment Plan Other Recommendations and Next Treatment transfers, monitor O2 and BP; Focus seated exercises Recommendations To Nursing Amount of Assist Needed 1 Person Assist Discharge Recommendations PT Discharge Recommendations SNF Rehab
[2018-04-03] MEDS: ASPIRIN EC 81 MG TABLET PO (17:34)
[2018-04-03] MEDS: ATORVASTATIN 20 MG TABLET 40 MG PO (17:34)
[2018-04-03] MEDS: TRAMADOL 50 MG TABLET PO (17:38)
[2018-04-03] MEDS: BISACODYL 5 MG TABLET PO (21:03)
[2018-04-04] VITALS (16 sets, daily range): BP systolic 104–141; BP diastolic 56–77; PULSE 69–102; RESP 17–24; TEMP 36.6–37.7; O2SAT 5–97
[2018-04-04] MEDS: levoFLOXacin 250 MG TABLET PO ×2 (00:50→23:23)
[2018-04-04] MEDS: TRAMADOL 50 MG TABLET PO (01:11)
--- NOTE | 2018-04-04 07:08 | PC.NURSE ---
Assumed care of pt from outgoing shift at 2300, 7-18. Pt asleep at this time. pt rotated every 2 hours. barrier cream applied to scrotum and red spots around bottom and thighs. scrotum looks much better, less sore per pt. Pt incontinent and continent at times. alert and oriented. denies pain. blankets removed as pt felt warm. pt rotated to left side. pt given snacks through the night, ate apple sauce and two cookies through the night. belongings and call light within reach. will continue to monitor pt for safety. bed alarm on. side rails upx3.
[2018-04-04] MEDS: FLUTICASONE 120 SPRAY/16 GM SPRAY.SUSP NASAL (08:37)
[2018-04-04] MEDS: PANTOPRAZOLE 20 MG TABLET PO (08:37)
[2018-04-04] MEDS: METOPROLOL 25 MG TABLET PO ×2 (08:37→20:47)
[2018-04-04] MEDS: ASPIRIN EC 81 MG TABLET PO (08:38)
[2018-04-04] MEDS: HEPARIN 5,000 UNIT/ML VIAL 5000 UNIT SUBCUT ×2 (08:39→20:47)
[2018-04-04] MEDS: FUROSEMIDE 20 MG TABLET PO (08:45)
--- NOTE | 2018-04-04 09:50 | PT.IPTN ---
Current Diagnoses Acute and chronic respiratory failure with hypoxia (03/30/18) Physical Therapy Treatment Note M2 PT-IP Current Condition Start: 03/30/18 17:33 Freq: NEEDED Status: Active Protocol: Document 04/01/18 09:00 [facility] (Rec: 04/01/18 13:51 [facility] [email or web address]) Physical Therapy Current Condition Current Condition Evaluation Date 03/30/18 Treatment Diagnosis SOB, CHF; difficulty in walking Onset Date 03/30/18 Precautions Other Precautions monitor BP, O2 sat (currently @6 L O2) 03/31/18: Per Dr. Maldonado, limit to transfers only due to hypotension and O2 at this time (verbal on 03/31/18) M3 PT-IP Subjective Start: 03/30/18 17:33 Freq: NEEDED Status: Active Protocol: Document 04/04/18 09:50 AB (Rec: 04/04/18 12:23 AB [id number]) Subjective Physical Therapy Visit Type Type Treatment Note Visit Start Time 09:50 Visit Stop Time 10:18 Total Visit Minutes 28 Number of BLADDER CLEANER Visits 0 Physical Therapy Visit Comments Patient Comments pt agreeable to do therapy Therapy Pain Assessment Pain Present Pain Present Denied Pain M4 PT-IP Mobility and Gait Start: 03/30/18 17:33 Freq: NEEDED Status: Active Protocol: Document 04/04/18 09:50 AB (Rec: 04/04/18 12:23 AB [id number]) PT-Transfer Assessment Sit to and From Stand Sit to and from Stand Minimal Assistance 1 Person Assistance Use of Upper Extremities Comments Mobility Comments pt sitting on chair and completed sit<>stand min A. BP and O2 sat monitored. sitting on chair prior to tx: BP: 120/68 MN 84 O2 sat 92% with O2 at 6L/min standing using FWW for support requiring CGA: BP: 97/51 after 2 mins of standing: BP: 94/63. Pt completed marching in place using FWW for support min A and cues for deep breathing. O2 sat decreased during standin-88%. instructed pt to sit down. BP sitting on chair: 120/67 O2 sat 91%. pt rested and agreed to stand up again. pt completed sit to stand min A requiring CGA to maintain standing uisng FWW for support . BP: 103/47. pt completed marching again 10 reps x 2. BP checked: 85/41 O2 sat decreased to 84%. instructed pt to sit down and take deep breaths. BP in sittin/ 77 O2 sat 90% positioned pt on chair. call light and table placed within reach. M5 PT-IP Objective Assessments Start: 03/30/18 17:33 Freq: NEEDED Status: Active Protocol: Document 03/30/18 16:48 AB (Rec: 03/30/18 17:51 AB [id number]) Orientation Orientation/Cognition Level of Alertness Alert Orientation Name Age Birthday Month Date Year Day of Week Place Situation Gross Range of Motion Lower Extremity ROM Assessment Left Impaired Impairments decrease L knee extension Strength Lower Extremity Strength Assessment Within Functional Limits M6 PT-IP Treatment Start: 03/30/18 17:33 Freq: NEEDED Status: Active Protocol: Document 04/04/18 09:50 AB (Rec: 04/04/18 12:24 AB [id number]) Physical Therapy Treatment Exercises Exercises Ankle Pumps Short Arc Quads Education Education Provided Safety M7 PT-IP Assessment and Plan Start: 03/30/18 17:33 Freq: NEEDED Status: Active Protocol: Document 04/04/18 09:50 AB (Rec: 04/04/18 12:23 AB [id number]) PT Summary Assessment and Plan Potential Rehabilitation Potential Fair Summary Impairments Strength Balance Bed Mobility Transfers Gait Activity Tolerance Progress Towards Goals Slow Progress due to Medical Issues Slow Progress due to Activity Tolerance Assessment Summary pt continues to have decrease activity tolerance with decrease in BP and o2 sat with activity but able to tolerate a little more activity today. pt will benefit from SNF rehab. Goals Bed Mobility Goal Standby Assistance Transfer Goal Standby Assistance Gait Goal Standby Assistance Gait Distance 100 Other Goals up/down 6 steps with bilateral rails SBA; up/down 12 steps with R rail ascending SBA Days to Meet Goals 3 Frequency of Treatment Frequency Of Treatment Once a Day Treatment Plan Other Recommendations and Next Treatment transfers, monitor O2 and BP; Focus seated exercises Recommendations To Nursing Amount of Assist Needed 1 Person Assist Discharge Recommendations PT Discharge Recommendations SNF Rehab
--- NOTE | 2018-04-04 11:24 | PM.PN.1 ---
Subjective Date Patient Seen: 04/04/18 Time Patient Seen: 11:00 Interval history: Patient's breathing is stable. RT was able to wean his nasal cannula oxygen down to 3 liters/minute at rest, well maintaining his oxygen saturation in the low 90s. Exam Vital Signs (past 8 hours): - 04/04/18 06:00 04/04/18 07:00 04/04/18 07:50 Temperature 98.1 F 97.9 F Pulse Rate 69 82 Respiratory Rate 19 17 Blood Pressure 114/56 L 104/71 Pulse Oximetry 93 96 87 L 04/04/18 10:00 04/04/18 10:20 04/04/18 10:50 Temperature Pulse Rate 84 Respiratory Rate 20 Blood Pressure Pulse Oximetry 97 95 89 L 04/04/18 10:52 Temperature Pulse Rate Respiratory Rate Blood Pressure Pulse Oximetry 94 Fraction of Inspired Oxygen 32 Oxygen Delivery Method Nasal Cannula Oxygen Flow Rate 3 Narrative Exam Narrative: General: Elderly man in no acute distress Lungs: Bilateral crackles at the lower half of the lung field, no wheezing appreciated Heart: Regular rhythm, no murmur appreciated Abdomen: Soft, nontender Extremities: No pitting edema Neuro: Alert and oriented x3 Objective Labs Result Diagrams: 04/01/18 05:07 04/01/18 05:07 Assessment & Plan Plan: Assessment/Plan Narrative: 1. Acute systolic congestive heart failure exacerbation. Improved. Continue IV furosemide for another day. Restart furosemide 40 mg IV q.8 hours. Recheck electrolytes in the morning. Does have a history of chronic systolic failure with ejection fraction of 40% from echo done last month. He seems to be euvolemic now 2. Acute bacterial pneumonia, healthcare associated. Continue Levaquin and follow cultures. Chest x-ray showed pneumonia. Consider CT scan for not seeing improvement. I think he has had clinical improvement is on less oxygen now. His ESR is elevated suggesting an underlying infection 3. Pulmonary fibrosis. Suspect progressive underlying disease.. Follow by Dr. Cannon as outpatient 4. Acute on chronic hypoxic respiratory failure due to 1 and possibly 2. Continue supplemental oxygen. He is currently at 3 L of oxygen. 5. Parkinson's disease. He was on amantadine but this was stopped by his germination worker due to concern of possible side-effect of congestive heart failure. 6. Orthostatic hypotension due to autonomic insufficiency from Parkinson's disease. This is been a careful balance of fluid status and over diuresis. Continue to monitor. We discussed that he may benefit from mostly being in a wheelchair at this point, given the severity of this condition and his risk of falling and recurrent syncopal events. Volume expanders are not a good option given his congestive heart failure. 7. Chronic kidney disease, stage III. Appears stable. Recheck renal function in the morning 8. Code status: Full code. I have discussed with him about his code status and suggested DNR. However patient and his are not ready to change his code status yet. 9. Disposition: Continue PT. Likely discharged back to [facility] tomorrow.
--- NOTE | 2018-04-04 14:52 | PC.NURSE ---
Pt has been oob to chair & BSC this shift. Pt remains very weak, voice is weak, Pt O2 drops when Pt talks. O2 is 4-6LNC to keep greater than 92%. Pt eats & drinks in [facility]l amts w/o diff. Sats drop w/any exertion. Pt needs assist w/ADLs.
[2018-04-04] MEDS: ATORVASTATIN 20 MG TABLET 40 MG PO (16:17)
[2018-04-04] MEDS: FUROSEMIDE 40 MG TABLET PO (16:17)
[2018-04-04] MEDS: CYCLOBENZAPRINE 5 MG TABLET PO (16:17)
[2018-04-04] MEDS: BISACODYL 5 MG TABLET PO (20:47)
--- NOTE | 2018-04-04 22:42 | PC.NURSE ---
Evening Shift Note A&O, forgetful, VSS, 93% on 5L hi/flow NC. SOB w/ exertion, no complaints of pain. Pt using urinal/brief to void. No IV access. Possible dc to [facility] tomorrow.
[2018-04-05 05:40] LABS: Add Manual Diff / Slide Review NO; Basophils Percent Auto 0.8 % (0-2); Eosinophils Percent Auto 4.3 % (2-4); Hematocrit 30.4 % (41-53); Hemoglobin 10.6 g/dL (13.5-17.5); Lymphocytes Percent Auto 20.6 % (25-40); Mean Corpuscular HGB Conc 34.9 % (30-36); Mean Corpuscular Hemoglobin 33.8 PG (26-34); Mean Corpuscular Volume 96.7 fL (80-100); Monocytes Percent Auto 13.8 % (3-14); Neutrophils Absolute Auto 3400 /uL (3000-5900); Neutrophils Percent Auto 60.5 % (50-75); Platelet Count 238 X10^3/uL (150-400); Red Blood Cell Count 3.15 X10^6/uL (4.5-5.9); Red Cell Distribution Width 12.9 % (11.6-14.8); White Blood Cell Count 5.6 X10^3/uL (4.5-11.0)
[2018-04-05 05:48] LABS: BUN Creatinine Ratio 26.1 (6-22); Blood Urea Nitrogen 47 mg/dL (9-20); Calcium 8.6 mg/dL (8.4-10.2); Carbon Dioxide 38 mmol/L (22-32); Chloride 88 mmol/L (98-107); Estimated Glomerular Filt Rate 36.5 mL/min (>60); Glucose 109 mg/dL (80-110); HEMOLYSIS < 15 (0-50); Sodium 132 mmol/L (137-145)
[2018-04-05 05:52] VITALS: BP 114/58; PULSE 71; RESP 22; TEMP 36.4; O2SAT 94
[2018-04-05 08:07] VITALS: O2SAT 94
[2018-04-05 08:15] VITALS: BP 127/64; PULSE 75; RESP 16; TEMP 36.9; O2SAT 94
[2018-04-05] MEDS: FLUTICASONE 120 SPRAY/16 GM SPRAY.SUSP NASAL (08:46)
[2018-04-05] MEDS: HEPARIN 5,000 UNIT/ML VIAL 5000 UNIT SUBCUT (08:50)
[2018-04-05] MEDS: METOPROLOL 25 MG TABLET PO (08:51)
[2018-04-05] MEDS: PANTOPRAZOLE 20 MG TABLET PO (08:51)
[2018-04-05] MEDS: FUROSEMIDE 40 MG TABLET PO (08:54)
[2018-04-05] MEDS: TRAMADOL 50 MG TABLET PO (09:00)
--- NOTE | 2018-04-05 09:30 | PT.IPTN ---
Current Diagnoses Acute and chronic respiratory failure with hypoxia (03/30/18) Physical Therapy Treatment Note M2 PT-IP Current Condition Start: 03/30/18 17:33 Freq: NEEDED Status: Active Protocol: Document 04/01/18 09:00 [facility] (Rec: 04/01/18 13:51 [facility] [id number]) Physical Therapy Current Condition Current Condition Evaluation Date 03/30/18 Treatment Diagnosis SOB, CHF; difficulty in walking Onset Date 03/30/18 Precautions Other Precautions monitor BP, O2 sat (currently @6 L O2) 03/31/18: Per Dr. Maldonado, limit to transfers only due to hypotension and O2 at this time (verbal on 03/31/18) M3 PT-IP Subjective Start: 03/30/18 17:33 Freq: NEEDED Status: Active Protocol: Document 04/05/18 09:30 GGD (Rec: 04/05/18 12:32 GGD [id number]) Subjective Physical Therapy Visit Type Type Treatment Note Visit Start Time 09:00 Visit Stop Time 09:30 Total Visit Minutes 30 Number of SOFTWARE SYSTEMS ENGINEER Visits 1 Physical Therapy Visit Comments Patient Comments Pt willing to get up to chair. M4 PT-IP Mobility and Gait Start: 03/30/18 17:33 Freq: NEEDED Status: Active Protocol: Document 04/05/18 09:30 GGD (Rec: 04/05/18 12:32 GGD [id number]) PT-Bed Mobility Assessment Supine to Sit Supine to Sit Minimal Assistance 1 Person Assistance Head of Bed Elevated Bedrails Scooting Scooting to Edge of Bed Contact Guard Assistance PT-Transfer Assessment Sit to and From Stand Sit to and from Stand Minimal Assistance 1 Person Assistance Use of Upper Extremities Comments Mobility Comments BP and O2 sat monitored. Supine: BP: 123/52 O2 sat 96% with O2 at 5L. Sitting: BP: 106/54 O2 92%. After 2 mins of standing: BP: 86/46 )2 85%. Transfer to chair BP: 114/55 M5 PT-IP Objective Assessments Start: 03/30/18 17:33 Freq: NEEDED Status: Active Protocol: Document 03/30/18 16:48 AB (Rec: 03/30/18 17:51 AB [id number]) Orientation Orientation/Cognition Level of Alertness Alert Orientation Name Age Birthday Month Date Year Day of Week Place Situation Gross Range of Motion Lower Extremity ROM Assessment Left Impaired Impairments decrease L knee extension Strength Lower Extremity Strength Assessment Within Functional Limits M6 PT-IP Treatment Start: 03/30/18 17:33 Freq: NEEDED Status: Active Protocol: Document 04/04/18 09:50 AB (Rec: 04/04/18 12:24 AB [id number]) Physical Therapy Treatment Exercises Exercises Ankle Pumps Short Arc Quads Education Education Provided Safety M7 PT-IP Assessment and Plan Start: 03/30/18 17:33 Freq: NEEDED Status: Active Protocol: Document 04/05/18 09:30 GGD (Rec: 04/05/18 12:32 GGD [id number]) PT Summary Assessment and Plan Summary Assessment Summary Pt continues to have decrease in BP and O2 with mobility. Which effects his tolerance for activity. He need rest breaks during mobility. Frequency of Treatment Frequency Of Treatment Once a Day Treatment Plan Other Recommendations and Next Treatment transfers, monitor O2 and BP; Focus seated exercises Recommendations To Nursing Amount of Assist Needed 1 Person Assist Discharge Recommendations PT Discharge Recommendations SNF Rehab
--- NOTE | 2018-04-05 10:05 | PM.DS.1 ---
History of Present Illness Chief complaint: SOB Narrative: 82-year-old man with pulmonary fibrosis, congestive heart failure and Parkinson's disease under the primary care of Dr. Jessica Celestin was admitted to this hospital 03/14/2018 after an episode of syncope due to acute on chronic systolic congestive heart failure, discharged to [facility] [place] on 03/19/2018 where he has remained, recuperating with significant weakness in the setting of baseline Parkinson's disease. He states he had been improving until 2 days ago when he ?hit a wall? started developing increasing cough and shortness of breath, without overt fevers, chills or significant ankle swelling. On admission it is noted that his weight is up 5 lb from his recent discharge. Discharge Providers Date of admission: 03/30/18 00:00 Primary care physician: Jessica Celestin MD Consults: 03/29/18 21:57 Consult to Respiratory Therapy Evaluate & Treat Comment: Physician Instructions: Evaluate and treat 03/30/18 01:35 Consult to Dietitian, Adult Routine Comment: Reason For Exam: lost 10 pounds in past 2 weeks 03/30/18 09:10 Consult to Physical Therapy Evaluate & Treat Comment: weakness Physician Instructions: Evaluate and Treat 04/03/18 12:14 Consult to Respiratory Therapy Evaluate & Treat Comment: keep sat 90-92? Physician Instructions: Evaluate and treat Discharge provider: Jessica Celestin MD Discharge Date: 04/05/18 Summary Discharge Diagnosis: 1. Acute exacerbation of congestive heart failure with systolic dysfunction 2. Possible healthcare associated pneumonia 3. Pulmonary fibrosis 4. Acute on chronic hypoxic respiratory failure due to 1 and possibly 2 Five. Parkinson's disease 6. Orthostatic hypotension due to autonomic insufficiency from Parkinson's disease 7. Chronic kidney disease stage 3 Eight. Code status: Full code Hospital Course: Patient was treated with IV furosemide for diuresis. He had gradual improvement of his shortness of breath. He was switched to oral furosemide on April 03, 2018. He currently is on furosemide 40 mg orally twice a day. He also was treated with Levaquin for possible healthcare associated pneumonia. He has non underlying pulmonary fibrosis. He is followed by Dr. Ellsworth. Currently his oxygenation has returned to his recent baseline. He is on nasal cannula oxygen 3 liters/minute at rest and 6 liters/minute with physical exertion. He was on amantadine for Parkinson's disease treatment. Amantadine was recently discontinued prior to his hospital admission due to concern of possible side effect of congestive heart failure. He is not currently on any medication for treatment. He can see neurologist as outpatient for further management of his Parkinson's disease. His previous neurologist, Dr. Aviles has recently retired. He is in the process of establishing care with neurologist as outpatient. He has significant orthostatic hypotension. It may be beneficial for him to the be in a wheelchair at this point. His renal function was monitored as we diurese him %period% creatinine was 1.8 at the time of discharge. His renal function and electrolytes needs to be continue monitored. Patient remains to be full code. We did attempt to discuss about his code status. He and his family would like to be full code for now. I also brought up the issue of possible hospice care in the future. He needs ongoing PT OT at the [facility]pc facility. Follow up with Dr. Jessica Celestin at [facility] after discharge from [facility] facility. Status at Discharge Cognitive/behavioral status at discharge: Back to baseline Functional status at discharge: wheelchair bound Overall status at discharge: patient is progressing back to baseline Time Spent with Patient Greater than 30 minutes Exam Vital Signs (past 8 hours): - 04/05/18 05:52 04/05/18 08:07 04/05/18 08:15 Temperature 97.6 F 98.5 F Pulse Rate 71 75 Respiratory Rate 22 16 Blood Pressure 114/58 L 127/64 H Pulse Oximetry 94 94 94 Fraction of Inspired Oxygen 32 Oxygen Delivery Method High Flow Nasal Cannula Oxygen Flow Rate 5 Narrative Exam Narrative: General: Elderly man in no acute distress Neck: No jugular venous distention Lungs: Fine crackles at the left base, a few crackles at the right base, otherwise clear to auscultation, no wheezing appreciated Abdomen: Soft, nontender Extremities: No pitting edema Objective Imaging Chest x-ray: Radiologist's impression: 1. Increased bilateral interstitial and airspace infiltrates suspicious for acute pneumonic process such as pneumonia or pulmonary edema superimposed on chronic interstitial lung disease. 2. Mild cardiomegaly. Labs Result Diagrams: 04/05/18 05:00 04/05/18 05:00 Labs: Laboratory Results - last 24 hr 04/05/18 04/05/18 05:00 05:00 WBC 5.6 RBC 3.15 L Hgb 10.6 L Hct 30.4 L MCV 96.7 MCH 33.8 MCHC 34.9 RDW 12.9 Plt Count 238 Neut % (Auto) 60.5 Lymph % (Auto) 20.6 L [place] % (Auto) 13.8 Eos % (Auto) 4.3 H Baso % (Auto) 0.8 Neut # (Auto) 3400 Sodium 132 L Potassium 4.0 Chloride 88 L Carbon Dioxide 38 H BUN 47 H Creatinine 1.80 H Estimated GFR 36.5 L BUN/Creatinine Ratio 26.1 H Glucose 109 Calcium 8.6 Discharge Plan Discharge Plan Patient Disposition: SNF Transfer to: [facility] [place] Under care of provider: Anthony Transportation: Wheelchair Labs: cbc and chem7 in one week Consult as needed: Dental, Hearing, Mental health, Podiatry and Vision I certify the postop hospital [facility] care is medically necessary on a continuing basis for any conditions for which he/ she received care during this hospitalization.: Yes The receiving facility has agreed to accept transfer and provide medical treatment.: Yes Discharge Health Status Brief summary of current health status: see summary section Multidrug resistant organism: No MDRO MDRO Verified by culture: Yes Precautions: [place] Provider Discharge Instructions Diet: Diet as Tolerated and Low-sodium Liquid consistency: Normal/Thin Food texture: Regular Activity: wheel chair for transportation. Up with assistance only Oxygen: NC 3 L/min at reast and 6L/min with exersion Other treatments: nebulizer treatments tid -qid prn Special Rehabilitation Services Reason for rehabilitation: Recovery r/t decondition Rehab type: Physical therapy and Occupational therapy Discharge Data Primary Care Provider: Jessica Celestin Attending Provider: Jessica Celestin Admit Date/Time: 03/30/18 00:00
--- NOTE | 2018-04-05 10:14 | P.DS_ITS ---
History of Present Illness Chief complaint: SOB Narrative: 82-year-old man with pulmonary fibrosis, congestive heart failure and Parkinson's disease under the primary care of Dr. Jessica Celestin was admitted to this hospital 03/14/2018 after an episode of syncope due to acute on chronic systolic congestive heart failure, discharged to [facility] on 2017 where he has remained, recuperating with significant weakness in the setting of baseline Parkinson's disease. He states he had been improving until 2 days ago when he ?hit a wall? started developing increasing cough and shortness of breath, without overt fevers, chills or significant ankle swelling. On admission it is noted that his weight is up 5 lb from his recent discharge. Discharge Providers Date of admission: 03/30/18 00:00 Primary care physician: Jessica Celestin MD Consults: 03/29/18 21:57 Consult to Respiratory Therapy Evaluate & Treat Comment: Physician Instructions: Evaluate and treat 03/30/18 01:35 Consult to Dietitian, Adult Routine Comment: Reason For Exam: lost 10 pounds in past 2 weeks 03/30/18 09:10 Consult to Physical Therapy Evaluate & Treat Comment: weakness Physician Instructions: Evaluate and Treat 04/03/18 12:14 Consult to Respiratory Therapy Evaluate & Treat Comment: keep sat 90-92? Physician Instructions: Evaluate and treat Discharge provider: Jessica Celestin MD Discharge Date: 04/05/18 Summary Discharge Diagnosis: 1. Acute exacerbation of congestive heart failure with systolic dysfunction 2. Possible healthcare associated pneumonia 3. Pulmonary fibrosis 4. Acute on chronic hypoxic respiratory failure due to 1 and possibly 2 Five. Parkinson's disease 6. Orthostatic hypotension due to autonomic insufficiency from Parkinson's disease 7. Chronic kidney disease stage 3 Eight. Code status: Full code Hospital Course: Patient was treated with IV furosemide for diuresis. He had gradual improvement of his shortness of breath. He was switched to oral furosemide on April 03, 2018. He currently is on furosemide 40 mg orally twice a day. He also was treated with Levaquin for possible healthcare associated pneumonia. He has non underlying pulmonary fibrosis. He is followed by Dr. Ellsworth. Currently his oxygenation has returned to his recent baseline. He is on nasal cannula oxygen 3 liters/minute at rest and 6 liters/minute with physical exertion. He was on amantadine for Parkinson's disease treatment. Amantadine was recently discontinued prior to his hospital admission due to concern of possible side effect of congestive heart failure. He is not currently on any medication for treatment. He can see neurologist as outpatient for further management of his Parkinson's disease. His previous neurologist, Dr. Aviles has recently retired. He is in the process of establishing care with neurologist as outpatient. He has significant orthostatic hypotension. It may be beneficial for him to the be in a wheelchair at this point. His renal function was monitored as we diurese him % period% creatinine was 1.8 at the time of discharge. His renal function and electrolytes needs to be continue monitored. Patient remains to be full code. We did attempt to discuss about his code status. He and his family would like to be full code for now. I also brought up the issue of possible hospice care in the future. He needs ongoing PT OT at the alf facility. Follow up with Dr. Jessica Celestin at [facility] after discharge from alf facility. Status at Discharge Cognitive/behavioral status at discharge: Back to baseline Functional status at discharge: wheelchair bound Overall status at discharge: patient is progressing back to baseline Time Spent with Patient Greater than 30 minutes Exam Vital Signs (past 8 hours): - 04/05/18 05:52 04/05/18 08:07 04/05/18 08:15 Temperature 97.6 F 98.5 F Pulse Rate 71 75 Respiratory Rate 22 16 Blood Pressure 114/58 L 127/64 H Pulse Oximetry 94 94 94 Fraction of Inspired Oxygen 32 Oxygen Delivery Method High Flow Nasal Cannula Oxygen Flow Rate 5 Narrative Exam Narrative: General: Elderly man in no acute distress Neck: No jugular venous distention Lungs: Fine crackles at the left base, a few crackles at the right base, otherwise clear to auscultation, no wheezing appreciated Abdomen: Soft, nontender Extremities: No pitting edema Objective Imaging Chest x-ray: Radiologist's impression: 1. Increased bilateral interstitial and airspace infiltrates suspicious for acute pneumonic process such as pneumonia or pulmonary edema superimposed on chronic interstitial lung disease. 2. Mild cardiomegaly. Labs Result Diagrams: 04/05/18 05:00 04/05/18 05:00 Labs: Laboratory Results - last 24 hr 04/05/18 04/05/18 05:00 05:00 WBC 5.6 RBC 3.15 L Hgb 10.6 L Hct 30.4 L MCV 96.7 MCH 33.8 MCHC 34.9 RDW 12.9 Plt Count 238 Neut % (Auto) 60.5 Lymph % (Auto) 20.6 L [place] % (Auto) 13.8 Eos % (Auto) 4.3 H Baso % (Auto) 0.8 Neut # (Auto) 3400 Sodium 132 L Potassium 4.0 Chloride 88 L Carbon Dioxide 38 H BUN 47 H Creatinine 1.80 H Estimated GFR 36.5 L BUN/Creatinine Ratio 26.1 H Glucose 109 Calcium 8.6 Discharge Plan Discharge Plan Patient Disposition: SNF Transfer to: [facility] Under care of provider: Anthony Transportation: Wheelchair Labs: cbc and chem7 in one week Consult as needed: Dental, Hearing, Mental health, Podiatry and Vision I certify the postop hospital alf care is medically necessary on a continuing basis for any conditions for which he/ she received care during this hospitalization.: Yes The receiving facility has agreed to accept transfer and provide medical treatment.: Yes Discharge Health Status Brief summary of current health status: see summary section Multidrug resistant organism: No MDRO MDRO Verified by culture: Yes Precautions: [place] Provider Discharge Instructions Diet: Diet as Tolerated and Low-sodium Liquid consistency: Normal/Thin Food texture: Regular Activity: wheel chair for transportation. Up with assistance only Oxygen: NC 3 L/min at reast and 6L/min with exersion Other treatments: nebulizer treatments tid -qid prn Special Rehabilitation Services Reason for rehabilitation: Recovery r/t decondition Rehab type: Physical therapy and Occupational therapy Discharge Data Primary Care Provider: Jessica Celestin Attending Provider: Jessica Celestin Admit Date/Time: 03/30/18 00:00
--- NOTE | 2018-04-05 10:15 | DI.RAD.S_ITS ---
PROCEDURE: XR CHEST 1V INDICATIONS: follow up on CHF TECHNIQUE: One view of the chest was acquired. COMPARISON: [facility], CR, XR CHEST 2V, 03/29/2018, 18:31. FINDINGS: Surgical changes and devices: Cholecystectomy. Lungs and pleura: No pleural effusions or pneumothorax. The diffuse bilateral interstitial lung disease is unchanged. Pleural thickening over the right upper lobe laterally associated with honeycomb appearance of the lung is also unchanged. No septal lines or focal consolidation. Mediastinum: Mediastinal contours appear normal. Cardiomegaly Bones and chest wall: No suspicious bony lesions. Overlying soft tissues appear unremarkable. IMPRESSION: 1. Cardiomegaly. 2. Chronic interstitial lung disease, appearing to be progressive over time. Possibility of superimposed pneumonia cannot be excluded. Dictated by: Bill Owusu M.D. on 04/05/2018 at 11:33 Approved by: Bill Owusu M.D. on 04/05/2018 at 11:36
[2018-04-05] MEDS: MAGNESIUM HYDROXIDE 30 ML UDC PO (11:05)
[2018-04-05] MEDS: BISACODYL 10 MG SUPP PR (11:31)
--- NOTE | 2018-04-05 13:22 | PC.NURSE ---
Day shift: Pt off unit w/ [employer] person. transported w/ O2 in WC, 4L HF NC. [facility] personal has d/c packet. Time is 1323.
--- NOTE | 2018-04-05 15:52 | CM.DPC ---
DC Note: This ROBOTYPE OPERATOR reviewed chart and coordinated final details of pt's DC/ return to [facility] today. No PASSR needed. Arranged 1300 p/u, Admin Braulio faxed completed and signed med list to [facility]. RN, pt and spouse aware and agreeable to this plan. JOHN Discharge Planning/Care Management CM Discharge Assessment Start: 03/30/18 16:53 Freq: Status: Discharge Protocol: Document 03/30/18 16:53 KJS (Rec: 03/30/18 16:56 KJS [id number]) Discharge Planning Assessment Assigned Lab[facility] History Provided By Patient Prior Living Arrangements Skilled Nurse Facility Household Members spouse Facility Name [facility] Willing to Return to Facility? Yes Independent with ADL's No Is patient alert and oriented? Yes Caregiver for Another No Community Services used prior to Oxygen Therapy admission: Comment Pt has gone to pulmonary rehab /IH in past and also participated in outpt Parkinson's groups. His spouse says he has been unable to do this for months now as his health has deteriorated. Referrals Initiated Senior Living Comment put vm referral into [facility] [facility] now at request of pt's spouse. Pt's desire is to go home and get back to outpt Pulmonary rehab but he would consider HH first if need be. He is open to further discussion of this. Comment large 2 level home, 5 stairs to landing, 9-10 stairs to main living area. Additional Comment dc planning discussion newly in process. OT and PT orders are obtained now to help in this assessment process. Review Status In Process Next Review Type Continued Stay Review
== END 2018-04-05 13:25 | DRG 189 ==
LOC: ED 21:47 → AC 03-30 00:02
PROVIDERS: Internal Medicine; Admitting Provider Internal Medicine; Emergency Provider Emergency Medicine; Family Provider Internal Medicine; PCP Internal Medicine; Visit Provider Internal Medicine
DX: J96.21 Acute and chronic respiratory failure with hypoxia (principal); I50.21 Acute systolic (congestive) heart failure; J18.9 Pneumonia, unspecified organism; G90.3 Multi-system degeneration of the autonomic nervous system; N18.3 Chronic kidney disease, stage 3 (moderate); K21.9 Gastro-esophageal reflux disease without esophagitis; G20 Parkinson's disease; J84.10 Pulmonary fibrosis, unspecified; Z87.891 Personal history of nicotine dependence; Y95 Nosocomial condition; I95.1 Orthostatic hypotension
CPT/HCPCS: 36415; 36591; 36592; 36600; 71045; 80048; 80053; 82550; 82805; 83605; 83880; 84145; 84484; 85025; 85610; 85651; 87040; 93005; 94760; 94762; 96365; 97110; 97162; 97530; 99283; 99285; J1644; J1940; J1956

== ENCOUNTER → 2018-04-10 07:31 | Outpatient (REF) | payer SELFPAY ==
[2018-03-30 01:21] VITALS: BMI 24.0
[2018-04-10 10:19] LABS: BUN Creatinine Ratio 30.6 (6-22); Blood Urea Nitrogen 52 mg/dL (9-20); Calcium 8.9 mg/dL (8.4-10.2); Carbon Dioxide 35 mmol/L (22-32); Chloride 94 mmol/L (98-107); Glucose 110 mg/dL (80-110); HEMOLYSIS < 15 (0-50); Potassium 3.9 mmol/L (3.4-5.1); Sodium 138 mmol/L (137-145)
== END ==
LOC: LAB 07:31
PROVIDERS: Family Provider Internal Medicine; PCP Internal Medicine; Visit Provider Internal Medicine
DX: J84.9 Interstitial pulmonary disease, unspecified (principal)
CPT/HCPCS: 36415; 80048

== ENCOUNTER → 2018-04-12 07:38 | Outpatient (REF) | payer SELFPAY ==
[2018-03-30 01:21] VITALS: BMI 24.0
[2018-04-12 08:43] LABS: BUN Creatinine Ratio 34.4 (6-22); Blood Urea Nitrogen 55 mg/dL (9-20); Calcium 8.9 mg/dL (8.4-10.2); Carbon Dioxide 35 mmol/L (22-32); Chloride 95 mmol/L (98-107); Estimated Glomerular Filt Rate 41.8 mL/min (>60); Glucose 112 mg/dL (80-110); HEMOLYSIS < 15 (0-50); Potassium 4.2 mmol/L (3.4-5.1); Sodium 138 mmol/L (137-145)
[2018-04-12 08:46] LABS: Add Manual Diff / Slide Review NO; Basophils Percent Auto 0.5 % (0-2); Eosinophils Percent Auto 0.1 % (2-4); Hematocrit 36.3 % (41-53); Hemoglobin 12.5 g/dL (13.5-17.5); Lymphocytes Percent Auto 21.3 % (25-40); Mean Corpuscular HGB Conc 34.3 % (30-36); Mean Corpuscular Hemoglobin 33.3 PG (26-34); Mean Corpuscular Volume 97.1 fL (80-100); Monocytes Percent Auto 9.6 % (3-14); Neutrophils Absolute Auto 7100 /uL (3000-5900); Neutrophils Percent Auto 68.5 % (50-75); Platelet Count 443 X10^3/uL (150-400); Red Blood Cell Count 3.74 X10^6/uL (4.5-5.9); Red Cell Distribution Width 12.9 % (11.6-14.8); White Blood Cell Count 10.3 X10^3/uL (4.5-11.0)
== END ==
LOC: LAB 07:38
PROVIDERS: Family Provider Internal Medicine; PCP Internal Medicine; Visit Provider Internal Medicine
DX: I50.9 Heart failure, unspecified (principal); J18.9 Pneumonia, unspecified organism
CPT/HCPCS: 36415; 80048; 85025

== ENCOUNTER → 2018-04-29 13:46 | Outpatient (REF) | payer OTHER, MEDICARE, SELFPAY ==
[2018-03-30 01:21] VITALS: BMI 24.0
[2018-04-29 15:26] LABS: BUN Creatinine Ratio 36.7 (6-22); Blood Urea Nitrogen 55 mg/dL (9-20); Calcium 8.9 mg/dL (8.4-10.2); Carbon Dioxide 33 mmol/L (22-32); Chloride 91 mmol/L (98-107); Estimated Glomerular Filt Rate 44.9 mL/min (>60); Glucose 204 mg/dL (80-110); HEMOLYSIS < 15 (0-50); Potassium 4.3 mmol/L (3.4-5.1); Sodium 134 mmol/L (137-145)
== END ==
LOC: LAB 13:46
PROVIDERS: Family Provider Internal Medicine; PCP Internal Medicine; Visit Provider Family Medicine
DX: I50.21 Acute systolic (congestive) heart failure (principal); J84.10 Pulmonary fibrosis, unspecified
CPT/HCPCS: 80048